=== PATIENT | female | born 1955 | race Hispanic/Latino ===

== ENCOUNTER 2022-09-30 10:08 | Emergency (ER) | payer OTHER ==
[2022-09-30 10:54] LABS: Absolute Lymphocytes (CBC) 1.8 K/uL (0.7-4.9); Hematocrit 44.4 % (36.0-45.0); Lymphocytes % 22.1 % (15.3-44.8); MCV 91.6 fL (80-100); MPV 7.1 fL (7.6-11.3); RBC Red Blood Cell Count 4.85 M/uL (3.86-4.86)
--- NOTE | 2022-09-30 10:55 | RAD REPORT ---
EXAM DESCRIPTION: CT - Head Brain Wo Cont - 09/30/2022 10:49 am CLINICAL HISTORY: Headache, new or worsening, left hand numbness and tingling COMPARISON: No comparisons TECHNIQUE: Axial 5 mm thick images of the head were obtained without IV contrast. All CT scans are performed using dose optimization technique as appropriate and may include automated exposure control or mA/KV adjustment according to patient size. FINDINGS: No intracranial hemorrhage, mass, edema or shift of mid-line structures. No acute infarcti on changes seen. No abnormal extra-axial fluid collections. Ventricles are normal. Patient has no sig nificant atrophy or chronic ischemic change identifiable. Mastoid air cells and visualized portions of the paranasal sinuses are clear. No acute bony findings. IMPRESSION: Negative non-contrast CT head examination. MRI imaging could be performed if there are continued clinical concerns for acute CVA.
[2022-09-30 11:03] LABS: Urine Blood Trace-intact (Negative); Urine Glucose Negative (Negative); Urine Protein Negative (Negative); Urine Specific Gravity 1.015 (1.005-1.030); Urine pH 5.5 (5.0-7.0)
[2022-09-30 11:07] LABS: Potassium 3.7 mmol/L (3.5-5.1); Troponin High Sensitivity 5.1 pg/mL (<58.9)
--- NOTE | 2022-09-30 11:22 | RAD REPORT ---
EXAM DESCRIPTION: RAD - Chest Single View - 09/30/2022 11:07 am CLINICAL HISTORY: CHEST PAIN COMPARISON: None TECHNIQUE: AP portable chest image was obtained 09/30/2022 11:07 am . FINDINGS: Lungs are clear. Heart and vasculature are normal. No measurable pleural effusion and no p neumothorax. No acute bony abnormality seen. No acute aortic findings suspected. IMPRESSION: No acute cardiopulmonary process.
--- NOTE | 2022-09-30 12:04 | RAD REPORT ---
EXAM DESCRIPTION: CT - Neck Angio - 09/30/2022 11:56 am CLINICAL HISTORY: Expressive aphasia TECHNIQUE: During dynamic enhancement using nonionic IV contrast, axial 2 mm thick images of the nec k were obtained. Sagittal and axial reconstruction images were generated using MIP technique and revi ewed. All CT scans are performed using dose optimization technique as appropriate and may include automated exposure control or mA/KV adjustment according to patient size. FINDINGS: Patient has an apparent right subclavian artery tracking from the aortic arch posterior t o the esophagus. The 3 primary great vessel origin show no origins stenosis. No aneurysm or vascular malformation identified. No carotid or vertebral dissection. Vertebral artery origins unremarkable as well. No stenosis, vasculitis or other significant carotid a rtery finding. No focal abnormality of either vertebral artery. Basilar artery is normal. The left ve rtebral artery is dominant as a normal anatomic variant. IMPRESSION: Negative CT angio neck examination.
--- NOTE | 2022-09-30 12:19 | RAD REPORT ---
EXAM DESCRIPTION: CT - Head angio - 09/30/2022 11:55 am CLINICAL HISTORY: Expressive aphasia TECHNIQUE: During dynamic enhancement using nonionic IV contrast, axial 1 millimeter thick images of the head were obtained. Sagittal and axial reconstruction images were generated using MIP technique and reviewed. All CT scans are performed using dose optimization technique as appropriate and may include automated exposure control or mA/KV adjustment according to patient size. COMPARISON: CT head same date FINDINGS: No aneurysm or vascular malformation identified. Major venous sinuses are patent. No stenosis, named branch occlusion, vasculitis or other significant vascular finding identifiable. IMPRESSION: Negative CT angio head examination.
--- NOTE | 2022-09-30 12:33 | RAD REPORT ---
EXAM DESCRIPTION: MRI - Brain Wo Cont - 09/30/2022 12:23 pm CLINICAL HISTORY: Expressive aphasia COMPARISON: Head angio dated 09/30/2022; Head Brain Wo Cont dated 09/30/2022 TECHNIQUE: Sagittal T1-weighted images were obtained along with axial PD, heavily T2-weighted and T2 -FLAIR images. Axial DWI and ADC mapping sequences were also obtained along with coronal heavily T2-w eighted images. FINDINGS: Diffusion imaging shows no acute infarction. No intracranial hemorrhage, mass or edema. No shift of midline structures. No significant atrophy changes are present. Scattered small T2/IR hyper intensities are seen in the cerebral white matter. This is typically chronic ischemic change. Ventric les are normal. No extra-axial fluid collections. Bernal-matter/white matter junction is preserved. Sig nal voids are seen as a normal finding in the major intracranial vessels. No globe or orbital content abnormality. No sella or supra sella abnormality. Patient has empty sella configuration with a thin rim of pituitary tissue along the floor. Mastoid air cells and paranasal sinuses are clear. IMPRESSION: No acute infarction change. No acute intracranial finding seen. Patient has mild chronic ischemic change scattered in the cerebral white matter.
--- NOTE | 2022-09-30 14:33 | EDPHYS ---
Physician Documentation [facility] Name: Patito Self Age: 67 yrs Sex: Female : 1955 Arrival Date: 09/30/2022 Time: 10:09 Bed 15 Private MD: ED Physician Sylvester Shabazz HPI: 09/30 10:29 This 67 yrs old Female presents to ER via Ambulatory with complaints of Headache, Ear ms3 Pain, Trouble Talking. 10:29 The patient complains of pain to the left frontal area. The patient describes the ms3 headache as a pressure. Onset: The symptoms/episode began/occurred 2.5 hour(s) ago. Associated signs and symptoms: Pertinent positives: Difficulty speaking at 8 am- resolved. Severity of symptoms: At its worst the pain was mild, in the emergency department the pain is unchanged. The symptoms are alleviated by nothing. the symptoms are aggravated by nothing. 10:45 67-year-old female with past medical history of hypertension, hypercholesterolemia ms3 presents for left-sided headache that she describes as pressure. Patient also notes at 8 AM she had difficulty coming up with words. Patient states that is resolved at this time. Historical: - Allergies: 10:18 Morphine; mb9 - Home Meds: 10:18 Lisinopril Oral [Active]; mb9 - PMHx: 10:18 Hypertensive disorder; Hypercholesterolemia; mb9 - Immunization history:: Adult Immunizations up to date. - Social history:: Smoking status: Patient denies any tobacco usage or history of. ROS: 10:29 Constitutional: Negative for fever, and chills. Neck: Negative for injury, pain, and ms3 swelling, Cardiovascular: Negative for chest pain, and palpitations. Respiratory: Negative for shortness of breath, cough, wheezing, and pleuritic chest pain, Abdomen/GI: Negative for abdominal pain, nausea, vomiting, diarrhea, and constipation, MS/Extremity: Negative for injury and deformity, Skin: Negative for injury, rash, and discoloration. 10:29 Neuro: Positive for headache, Difficulty speaking- resolved. 10:29 All other systems are negative. Exam: 10:35 ECG was reviewed by the Attending Physician. ms3 10:45 Constitutional: This is a well developed, well nourished patient who is awake, alert, ms3 and in no acute distress. Head/Face: Normocephalic, atraumatic. Neck: Trachea midline, no cervical lymphadenopathy. Supple, full range of motion without nuchal rigidity, or vertebral point tenderness. No Meningismus. Chest/axilla: Normal chest wall appearance and motion. Nontender with no deformity. Cardiovascular: Regular rate and rhythm with a normal S1 and S2. No gallops, murmurs, or rubs. Normal PMI, no JVD. No pulse deficits. Respiratory: Lungs have equal breath sounds bilaterally, clear to auscultation and percussion. No rales, rhonchi or wheezes noted. No increased work of breathing, no retractions or nasal flaring. Abdomen/GI: Soft, non-tender, with normal bowel sounds. No distension or tympany. No guarding or rebound. No evidence of tenderness throughout. Skin: Warm, dry with normal turgor. Normal color with no rashes, no lesions, and no evidence of cellulitis. MS/ Extremity: Pulses equal, no cyanosis. Neurovascular intact. Full, normal range of motion. 10:45 Neuro: Orientation: is normal, Mentation: is normal, Memory: is normal, Cranial nerves: CN II- XII are normal as tested, Cerebellar function: is grossly normal, normal finger to nose testing, Motor: is normal, moves all fours, Sensation: is normal, no obvious gross deficits, Gait: is steady. Vital Signs: 10:14 BP 179 / 99; Pulse 104; Temp 98.0; Pulse Ox 97% on R/A; Weight 92.08 kg; Height 5 ft. 1 mb9 in. (154.94 cm); Pain 0/10; 10:30 BP 200 / 99; Pulse 102; Resp 16; Pulse Ox 99% ; ko1 12:00 BP 175 / 96; Pulse 98; ko1 12:00 BP 180 / 92; ko1 14:34 BP 178 / 88; Pulse 95; ko1 10:14 Body Mass Index 38.36 (92.08 kg, 154.94 cm) mb9 NIH Stroke Scale Scores: 10:45 NIHSS Score: 0 ms3 MDM: 10:24 Patient medically screened. ms3 11:24 ED course: Discussed case with Dr Gonzalez. He recommends CTA head and neck, MRI brain ms3 without contrast. If negative patient can be discharged on ASA and follow up with him in clinic.. 14:35 Data reviewed: vital signs, nurses notes, lab test result(s), EKG, radiologic studies, ms3 CT scan, MRI, plain films. 14:35 Data interpreted: residential monitor: rate is 95 beats/min, rhythm is normal sinus rhythm, ms3 with no ectopy, Interpretation: normal rate, normal rhythm. Counseling: I had a detailed discussion with the patient and/or guardian regarding: the historical points, exam findings, and any diagnostic results supporting the discharge/admit diagnosis, lab results, radiology results, the need for outpatient follow up, to return to the emergency department if symptoms worsen or persist or if there are any questions or concerns that arise at home. ED course: Discussed labs and imaging with the patient. On reevaluation patient is alert and oriented x4, in no apparent distress, nontoxic, ambulatory in the emergency department, speaking full sentences, no expressive aphasia at this time. Patient follow-up with Dr. Gonzalez in 2 to 3 days. Patient understands and agrees with plan. All questions were answered. Return precautions discussed include worsening symptoms, or any other concerns.. 09/30 10:25 Order name: Basic Metabolic Panel; Complete Time: 11:12 ms3 09/30 10:25 Order name: CBC with Diff; Complete Time: 11:12 ms3 09/30 10:25 Order name: Troponin HS; Complete Time: 11:12 ms3 09/30 10:25 Order name: XRAY Chest (1 view); Complete Time: 11:47 ms3 09/30 10:28 Order name: CT Head Brain wo Cont; Complete Time: 11:12 ms3 09/30 11:03 Order name: Urine Dipstick-Ancillary; Complete Time: 11:12 EDMS 09/30 10:25 Order name: EKG; Complete Time: 10:28 ms3 09/30 10:25 Order name: Cardiac monitoring; Complete Time: 10:41 ms3 09/30 10:25 Order name: EKG - Nurse/Tech; Complete Time: 10:41 ms3 09/30 11:24 Order name: CT Head Angio; Complete Time: 13:43 ms3 09/30 11:24 Order name: CT Neck Angio; Complete Time: 13:43 ms3 09/30 11:24 Order name: MRI - Brain Wo Cont ms3 09/30 11:35 Order name: Brain Wo Cont; Complete Time: 13:43 EDMS 09/30 10:25 Order name: IV Saline Lock; Complete Time: 10:41 ms3 09/30 10:25 Order name: Labs collected and sent; Complete Time: 10:41 ms3 09/30 10:25 Order name: O2 Per Protocol; Complete Time: 10:26 ms3 09/30 10:25 Order name: O2 Sat Monitoring; Complete Time: 10:27 ms3 EC:35 Rate is 102 beats/min. Rhythm is regular. Left axis deviation noted. AK interval is ms3 normal. QRS interval is normal. QT interval is normal. Clinical impression: NSR w/ Non-specific ST/T Changes. Interpreted by me. Reviewed by me. Administered Medications: No medications were administered Disposition Summary: 09/30/22 14:33 Discharge Ordered Location: Home ms3 Condition: Stable ms3 Diagnosis - Expressive language disorder ms3 - Essential (primary) hypertension ms3 - Hematuria, unspecified ms3 Followup: ms3 - With: Carlos Gonzalez MD - When: 2 - 3 days - Reason: Recheck today's complaints Discharge Instructions: - Discharge Summary Sheet ms3 - Hematuria, Adult ms3 - Hypertension, Adult ms3 Forms: - Medication Reconciliation Form ms3 - Thank You Letter ms3 - Antibiotic Education ms3 - Prescription Opioid Use ms3 Prescriptions: - aspirin 81 mg Oral capsule - take 1 capsule by ORAL route once daily; 30 capsule; Refills: 0, Product ms3 Selection Permitted NIH Stroke Scale - NIH Stroke Score Date: 09/30/2022 Time: 10:45 Total Score = 0 1a. Level of Consciousness (LOC) - 0(Alert) 1b. Level of Consciousness (LOC) (Month \T\ Age) - 0(Both) 1c. LOC Commands (Open \T\ Closes Eyes/Hydraulic Operator) - 0(Both) 2. Best Gaze (Lateral Gaze Paresis) - 0(Normal) 3. Visual Field Loss - 0(No visual loss) 4. Facial Palsy - 0(Normal) 5a. Left Arm: Motor (10-second hold) - 0(No drift) 5b. Right Arm: Motor (10-second hold) - 0(No drift) 6a. Left Leg: Motor (5-second hold - always test supine) - 0(No drift) 6b. Right Leg: Motor (5-second hold - always test supine) - 0(No drift) 7. Limb Ataxia (finger/nose \T\ heel/oden - test with eyes open) - 0(Absent) 8. Sensory Loss (pinprick arms/legs/face) - 0(Normal) 9. Best Language: Aphasia (description/naming/reading) - 0(No aphasia) 10. Dysarthria (speech clarity - read or repeat words) - 0(Normal) 11. Extinction and Inattention (visual/tactile/auditory/spatial/personal) - 0(No abnormality) Initials: ms3 Signatures: Dispatcher [employer] EDMS Sylvester Shabazz, DO ms3 Kathy Deutsch, RN RN mb9
--- NOTE | 2022-09-30 14:33 | ER ---
Nurse's Notes [facility] Name: Patito Self Age: 67 yrs Sex: Female : 1955 Arrival Date: 09/30/2022 Time: 10:09 Bed 15 Private MD: Diagnosis: Expressive language disorder;Essential (primary) hypertension;Hematuria, unspecified Presentation: 09/30 10:14 Chief complaint: Patient states: "I began having difficulty speaking around 0800 and mb9 began having pressure on my left side of head. My left fingertips began to have numbness and tingling". Coronavirus screen: Client denies travel out of the [place] in the last 14 days. Ebola Screen: No symptoms or risks identified at this time. Initial Sepsis Screen: Does the patient meet any 2 criteria? No. Patient's initial sepsis screen is negative. Does the patient have a suspected source of infection? No. Patient's initial sepsis screen is negative. Risk Assessment: Do you want to hurt yourself or someone else? Patient reports no desire to harm self or others. 10:14 Method Of Arrival: Ambulatory mb9 10:14 Acuity: MARCIANO 2 mb9 14:55 Onset of symptoms was September 30, 2022. ko1 Triage Assessment: 10:17 General: Appears in no apparent distress. Behavior is calm, cooperative, appropriate mb9 for age. Pain: Complains of pain in face Pain currently is 0 out of 10 on a pain scale. Pain began suddenly. 10:20 EENT: No deficits noted. Neuro: Level of Consciousness is awake, alert, obeys commands, mb9 Oriented to person, place, time, situation, Appropriate for age Director Of Resource Development are equal bilaterally Moves all extremities. Gait is steady, Speech is normal, Facial symmetry appears normal, Pupils are PERRLA, Intact Reports headache. Neuro:. Cardiovascular: Rhythm is regular. Respiratory: Airway is patent. Respiratory: GI: Abdomen is round. : No signs and/or symptoms were reported regarding the genitourinary system. Derm: Skin is pink, warm \\T\\ dry. Musculoskeletal: Range of motion:. 14:55 Pain: Also complains of no other associated symptoms. ko1 14:55 Headache History: The patient has had previous headaches and this one is more severe ko1 than previous episodes. Historical: - Allergies: 10:18 Morphine; mb9 - Home Meds: 10:18 Lisinopril Oral [Active]; mb9 - PMHx: 10:18 Hypertensive disorder; Hypercholesterolemia; mb9 - Immunization history:: Adult Immunizations up to date. - Social history:: Smoking status: Patient denies any tobacco usage or history of. Screenin:30 Abuse screen: Denies threats or abuse. Denies injuries from another. Nutritional ko1 screening: No deficits noted. Tuberculosis screening: No symptoms or risk factors identified. Fall Risk None identified. Assessment: 10:30 General: Appears in no apparent distress. comfortable, Behavior is calm, cooperative, ko1 appropriate for age. Pain: Denies pain. Neuro: No deficits noted. Cardiovascular: No deficits noted. Respiratory: No deficits noted. GI: No deficits noted. : No deficits noted. EENT: Reports pain in left frontal area and face. Derm: No deficits noted. Musculoskeletal: No deficits noted. Vital Signs: 10:14 BP 179 / 99; Pulse 104; Temp 98.0; Pulse Ox 97% on R/A; Weight 92.08 kg; Height 5 ft. 1 mb9 in. (154.94 cm); Pain 0/10; 10:30 BP 200 / 99; Pulse 102; Resp 16; Pulse Ox 99% ; ko1 12:00 BP 175 / 96; Pulse 98; ko1 12:00 BP 180 / 92; ko1 14:34 BP 178 / 88; Pulse 95; ko1 10:14 Body Mass Index 38.36 (92.08 kg, 154.94 cm) mb9 Vitals: 10:30 Cardiac Rhythm Assessment Regular Sinus tach. ko1 NIH Stroke Scale Scores: 10:45 NIHSS Score: 0 ms3 ED Course: 10:09 Patient arrived in ED. as 10:16 Sylvester Shabazz DO is Attending Physician. ms3 10:16 Triage completed. mb9 10:17 Arm band placed on. mb9 10:24 Kenzie Mendez, DANIEL is Primary Nurse. ko1 10:30 Patient has correct armband on for positive identification. Allergy band placed. Placed ko1 in gown. Bed in low position. Call light in reach. Side rails up X 1. Client placed on continuous cardiac and pulse oximetry monitoring. NIBP monitoring applied. traffic monitor specialist on. 10:30 Inserted saline lock: 20 gauge in right antecubital area, using aseptic technique. ko1 Blood collected. 10:41 Basic Metabolic Panel Sent. ko1 10:41 CBC with Diff Sent. ko1 10:41 Troponin HS Sent. ko1 10:49 CT Head Brain wo Cont In Process Unspecified. EDMS 11:09 XRAY Chest (1 view) In Process Unspecified. EDMS 11:57 CT Head Angio In Process Unspecified. EDMS 11:57 CT Neck Angio In Process Unspecified. EDMS 12:05 Brain Wo Cont In Process Unspecified. EDMS 14:32 Carlos Gonzalez MD is Referral Physician. ms3 14:34 No provider procedures requiring assistance completed. IV discontinued, intact, ko1 bleeding controlled, No redness/swelling at site. Pressure dressing applied. Administered Medications: No medications were administered Medication: 14:34 VIS not applicable for this client. ko1 Outcome: 14:33 Discharge ordered by . ms3 14:34 Discharged to home ambulatory, with family. ko1 14:34 Condition: good 14:34 Discharge instructions given to patient, family, Instructed on discharge instructions, follow up and referral plans. medication usage, Demonstrated understanding of instructions, follow-up care, medications, Prescriptions given X 1. 14:56 Patient left the ED. ko1 NIH Stroke Scale - NIH Stroke Score Date: 09/30/2022 Time: 10:45 Total Score = 0 1a. Level of Consciousness (LOC) - 0(Alert) 1b. Level of Consciousness (LOC) (Month \\T\\ Age) - 0(Both) 1c. LOC Commands (Open \\T\\ Closes Eyes/Grinder Machine Setter) - 0(Both) 2. Best Gaze (Lateral Gaze Paresis) - 0(Normal) 3. Visual Field Loss - 0(No visual loss) 4. Facial Palsy - 0(Normal) 5a. Left Arm: Motor (10-second hold) - 0(No drift) 5b. Right Arm: Motor (10-second hold) - 0(No drift) 6a. Left Leg: Motor (5-second hold - always test supine) - 0(No drift) 6b. Right Leg: Motor (5-second hold - always test supine) - 0(No drift) 7. Limb Ataxia (finger/nose \\T\\ heel/oden - test with eyes open) - 0(Absent) 8. Sensory Loss (pinprick arms/legs/face) - 0(Normal) 9. Best Language: Aphasia (description/naming/reading) - 0(No aphasia) 10. Dysarthria (speech clarity - read or repeat words) - 0(Normal) 11. Extinction and Inattention (visual/tactile/auditory/spatial/personal) - 0(No abnormality) Initials: ms3 Signatures: Dispatcher [employer] EDMireya Luque Marcus, DO DO ms3 Kenzie Mendez RN RN ko1 Kathy Deutsch RN RN mb9 Corrections: (The following items were deleted from the chart) 10:21 10:17 Pain: Complains of pain in face mb9 mb9 10/01 09:27 11 10:14 Acuity: MARCIANO 3 9 mb9
[2022-09-30 15:00] VITALS: TEMP 98
[2022-09-30 15:01] VITALS: O2SAT 99
[2022-09-30 15:04] VITALS: BP 178/88
--- NOTE | 2022-10-02 06:02 | EKG ---
Test Date: 2022-09-30 Test Time: 10:35:00 Folder Seamer Automatic: Luly Elliott MEASUREMENT RESULTS: Intervals: Rate: 102 OK: 162 QRSD: 82 QT: 336 QTc: 437 [place]: P: 51 OK: 162 QRS: -5 T: 31 INTERPRETIVE STATEMENTS: Sinus tachycardia Minimal voltage criteria for LVH, may be normal variant Borderline ECG No previous ECG available for comparison Electronically Signed On 10-02-22 06:00:05 CDT by Brian Li
== END 2022-09-30 14:56 | disposition home or self-care (01) ==
LOC: ER 10:08
DX: F80.1 Expressive language disorder (principal); I10 Essential (primary) hypertension; R31.9 Hematuria, unspecified; R51.9 Headache, unspecified; Z88.5 Allergy status to narcotic agent
CPT/HCPCS: 93005; 85025; 80048; 36415; 81003; 84484; 70450; 70496; 70498; 71045; 70551; 99284; Q9967

== ENCOUNTER 2022-10-08 22:18 | Emergency (ER) | payer OTHER ==
--- OUTSIDE RECORDS SUMMARY | 2022-10-08 22:22 | XMS REPORT | Continuity of Care Document ---
:1955 Author Organization [facility] t Address [address] [place] [address] Care Team Providers Name Role Phone Kayleigh Phipps Attending Clinician Unavailable Kayleigh Phipps Admitting Clinician Unavailable Payers Payer Name Policy Type Policy Number Effective Date Expiration Date S ource Problems This patient has no known problems. Allergies, Adverse Reactions, Alerts Allergy Allergy Status Severity Reaction(s) Onset Inactive Treating Comm ents Source Name Type Date Date Clinician morphine DA Active U UNKNOWN 2021-11 [facility] 11-30 [place] 00:00: d 00 [facility] No Known DA Active U [facility] All[facility]ie 7-10 [place] [facility] 00:00: d 00 [facility] No Known DA Active U 2016- [facility] Allergie 7-10 [facility] Medications This patient has no known medications. Procedures Procedure Date / Time Performed Performing Clinician Melissa vargas [id number] 2022-10-01 00:00:00 BOBBY.01 [facility] [id number] 2022-10-01 00:00:00 BOBBY.01 [facility] Encounters Start End Encounter Admission Attending Care Care Encounter Source Date/Time Date/Time Type Type Clinicians Facility Department ID 2022-10-01 2022-10-02 Inpatient EM Desire, [facility] INTE.02 [id number] [facility] 15:56:00 13:14:00 Musaddiq 54 Miladis an [facility] Results Test Description Test Time Test Comments Results Result Comments Source HGBA1C 2022-10-02 05:19:00 Test Item Value Reference Range Interpretation Comme nts GLYCOSYLATED HEMOGLOBIN (HA1C) (test code = GLYHGB) 5.5 % A1C 0. 0-5.7 N ESTIMATED AVERAGE GLUCOSE (test code = EAG) 111 MG/DLest LIPID PROFILE (CORONARY RISK)2022-10-02 05:01:00 Test Item Value Reference Range Interpretation Comments TRIGLYCERIDES (test 126 MG/DL 0-150 N code = TRIG) CHOLESTEROL (test 221 MG/DL 133-200 H code = CHOL) CHOLESTEROL/HDL 4.25 RATIO See_Comment RISK ASSOCIA EFRAÍN WITH RATIO (test code = CHOL/HDL RATIOS: RISK CHOLHDL) MALE FEMALE1/2 AVERAGE 3.43 3.27AVERAG E 4.97 4.442X AVERAGE 9.55 7.053X AVERAGE 23.39 11.04 NOTE THAT THE REFERENCE VALUE IS RELATED TO RISK LEVELS ASRECOMMENDED B Y THE [facility]ATIONAL [facility], LUNG, [facility]OD [facility] . [Automated mess age] The system which Scribe Software nerated this result tra nsmitted reference range : 0-. The reference range was not used to interpr et this result as normal/abnormal . HDL CHOLESTEROL 52 MG/DL 40-59 N (test code = HDL) NON-HDL CHOLESTEROL 169 mg/dL <130 H (test code = NHDL) LIPOPROTEIN LDL 147 MG/DL 0-129 H <100 OPTIMAL 100 - 129 (test code = LDL) NEAR OPTIM AL/ABOVE [id number] - 15 9 [id number] - 189 HIGH>OR= 190 VE RY HIGHNOTE THAT G UIDELINES ARE PROVIDED BY NATIONAL CHOLESTEROLEDUC ATION PROGRAM ADULT T REATMENT PANEL III LDL/HDL (test code 2.82 Ratio See_Comment N [Automat ed message] The = LDL/HDL) system which [employer] nerated this result tra nsmitted reference range : 1.48-3.22 Avg. The reference range was not used to interpr et this result as normal/abnormal . Comment: FASTING IN AMCSF CELL [id number] 18:18:00 Test Item Value Reference Range Interpretation Comments CSF COLOR (test code = COLORLESS DESCRIP. COLORLESS COLCSF) CSF APPEARANCE (test code CLEAR DESCRIP. CLEAR = APPCSF) CSF TUBE # (test code = #3 Tube# Tube Used TUBECSF) CSF WBC (test code = 2 #/mm3 0-5 N WBCCSF) CSF RBC (test code = 1000 #/mm3 0-0 H RBCCSF) CSF [id number] 18:18:00 Test Item Value Reference Range Interpretation Comments CSF GLUCOSE (test code = GLUCSF) 69 MG/DL 40-75 N CSF TOTAL [id number] 18:18:00 Test Item Value Reference Range Interpretation Comments CSF TOTAL PROTEIN (test code = 35.4 MG/DL 15.0-45.0 N PROTCSF) - XR LUMBAR [id number] 16:49:00 [facility] : 1955 Sex: F Name: RADHA LONDONO [facility] : 1955 Age/S: 67 / F [address] [facility] [place] Unit #: [id number] Loc: [place] [address] Phys: Sue Wills Acct: [id number] Dis Date: Status: ADM IN PHONE #: [phone] Exam Date: 10/01/2022 1630 FAX #: Reason: EVAL FOR IIH EXAMS: CPT: [id number] XR LUMBAR [id number] Fluoro Time: DAP (Gy m2): Air Kerma (mGy): Location Code: S17 REASON FOR EXAM: EVAL FOR IIH COMPARISON: None. FINDINGS: After explaining risks and benefits of the procedure, (including, but not limited to, bleeding, infection and headache), the patient was placed prone on the examination table and the skin over the lumbar spine was cleaned and prepped in sterile fashion. An appropriate area was marked at the L2-3 space using fluoroscopy. 1% lidocaine was used to obtain anesthesia. Following this a 22 gauge spinal needle was inserted into the lumbar thecal sac with return of clear cerebrospinal fluid. Approximately 12 cc of clear CSF was obtained, and sent to lab for further analysis. Following this the needle was removed. The patient appeared to tolerate the procedure well without immediate complication. The opening and closing pressures were measured with the patient in prone position. The opening pressure was 6 cm water and closing pressure was less than 5 cm of water. 58 seconds of fluoroscopy time was used to complete the procedure. Total images: 1 IMPRESSION: 1. Technically successful fluoroscopically guided lumbar puncture. No immediate complications. 2. Opening pressure was 6. Closing pressure was less than 5. at 8978 Reported and signed by: Patricio Taylor M.D. CC: Sue SERRA; Kayleigh Phipps MD PAGE 1 Signed Report Name: RADHA LONDONO [facility] : 1955 Age/S: 67 / F [address] [address] Unit #: [id number] Loc: [place] [address] Phys: Sue Wills Acct: [id number] Dis Date: Status: ADM IN PHONE #: [phone] Exam Date: 10/01/2022 1630 FAX #: Reason: EVAL FOR IIH EXAMS: CPT: [id number] XR LUMBAR [id number] Fluoro Time: DAP (Gy m2): Air Kerma (mGy): (Continued) Technologist: Angel Patel, RT(R)Trnscb Date/Time: 10/01/2022 (134) [email or web address] Orig Print D/T: S: 10/01/2022 (9231) PAGE 2 Signed Report- MRI BRAIN W/O [id number] 08:39:00 [facility] : 1955 Sex: F FAX:Viktoria GordonJoce westfall [facility] [phone] Camps: PM St: ADM FAX: Kayleigh Phipps MD [phone] Name: RDAHA LONDONO [facility] : 1955 Age/S: 67/F [address] Unit #: [id number] Loc: [place] [address] Phys: Damir MorrisseyBello [facility] Acct: [id number] Dis Date: Status: ADM IN PHONE #: [phone] Exam D ate: 10/01/2022 0800 FAX #: Reason: CVA, expressive aphasia EXAMS: CPT: [id number] MRI BRAIN W/O CONTRAST 74297 Location: B2 EXAM: MRI brain without contrast DATE:10/01/2022 1:58 AM INDICATION:CVA, expressive aphasia COMPARISON: CT head 09/30/2022 TECHNIQUE: Multiplanar multisequence images of the brainwere obtained without contrast material administration. DISCUSSION: Few foci of restricted diffusionare present in the left periatrial white matter. Volume loss. Hyperintense T2 lesions in the supratentorial white matter consistent with small vessel disease. Remote infarct in the right basal ganglia.No acute intracranial hemorrhage, hydrocephalus or midline shift. No brain herniation. 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 There is a 1.6 x 2.3 cm arachnoid cyst in the medial aspect of the middle cranial fossa . 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 More posteriorly there is a small cephalocele (image 12 series 8). There are small cephaloceles at the level of the left tegmen mastoideum and tympani (image 15 series 8). There is remodeling of the sella turcica, with a partial empty sella appearance. Trace mucosal thickening within the left maxillary sinus. PAGE 1 Signed Report (CONTINUED) FAX: Gabrielle Cary HOME INSPECTOR [phone] Camps: PM St: ADM FAX: Kayleigh Phipps MD [phone] Name: RADHA LONDONO [facility] : 1955 Age/S: 67/F [address] [facility] Unit #: [id number] Loc: [place] [address] Phys: Gabrielle Morrissey APRNNPAcct: [id number] Dis Date: Status: ADM IN PHONE #: [phone] Exam Date: 10/01/2022 0800 FAX #: Reason: CVA, expressive aphasia EXAMS: CPT: [id number] MRI BRAIN W/O CONTRAST 42953 (Continued) Major intracranial flow voids are well maintained. Opacification of some left mastoid air cells. IMPRESSION: Few foci of restricted diffusion in the left periatrial white matter secondary to acute ischemia. Volume loss and small vessel disease. Bilateral petrous apex cephaloceles. 16 x 23 mm left middle cranial fossa arachnoid cyst. 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 Partial empty sella. The constellation of findings are suspicious for idiopathic intracranial hypertension. at 0839 Reported and signed by: Malu Huang M.D. CC: Gabrielle Morrissey; Kayleigh Phipps MD Technologist: Stevan Park, RT(R)(CT)(MR) Tr anscribed Date/Time/By: 10/01/2022 (0839) :Jimmy Orig Print D/T: S: 10/01/2022 (0842) PAGE 2 Signed ReportGLUCOSE BEDSIDE [id number] 05:25:00 Test Item Value Reference Range Interpretation Comments GLUCOSE BEDSIDE TESTING (test code 128 mg/dL 70-110 H = GLUBED) UA RFLX MICR CULT IF [id number] 00:44:00 Test Item Value Reference Range Interpretation Comments UA COLOR (test code = YELLOW discript YEL/STRAW COLU) UA APPEARANCE (test code CLEAR discript CLEAR = APPU) UA GLUCOSE DIPSTICK (test NEGATIVE mg/dL NEG code = DGLUU) UA BILIRUBIN DIPSTICK NEGATIVE mg/dL NEG (test code = BILU) UA KETONE DIPSTICK (test NEGATIVE mg/dL NEG code = KETU) UA SPECIFIC GRAVITY (test 1.015 SG 1.005-1.030 code = SGU) UA BLOOD DIPSTICK (test 1+ mg/DL NEG A code = WINTER) UA PH DIPSTICK (test code 6.0 pH UNITS 5.0-7.0 = BAO) UA PROTEIN DIPSTICK (test NEGATIVE mg/dL NEG code = PROU) UA UROBILINIOGEN DIPSTICK 0.2 mg/dL <2.0 (test code = URO) UA NITRITE DIPSTICK (test NEGATIVE SCREEN NEG code = TAYO) UA LEUKOCYTE ESTERASE NEGATIVE Leuk/mcL NEGATIVE DIPSTICK (test code = LEUU) UA CULTURE NEEDED? (test NO, WBC<10 Criteria Culture CHK code = UACULT) UA RBC (test code = RBCU) 0-1 #RBC/HPF 0-3 Indication for culture: RiskForSepsis-no oth srcCOVID 19 Asymptomatic IH AG 2022-10-01 00:14:00 Test Item Value Reference Range Interpretation Comments COVID 19 Asymptomatic NEGATIVE Negative Per ma nufacturer, IH AG (test code = negative results should COVNONPUIAG) be treated aspresumptive a nd, if inconsistent wi th clinical signs andsymptoms or necessary for p atient management, kina uld betested with a n alternative mol ecular assay. Negative resultsdo not p reclude SARS-CoV-2 infe ction and should not be usedas the sole basis for patient man agement decisions. Nega tive results should be considered in t he context of apat ient's recent exposure s, history, presen ce of clinicalsigns a nd symptoms consis tent with COVID-19. PROTHROMBIN [id number] 23:22:00 Test Item Value Reference Range Interpretation Comments PT PATIENT (test 10.8 SECONDS 9.3-12.9 N code = PTP) INTERNATIONAL NORMAL 0.95 INR Unit 0.8-1.2 N TARG ET INR BY RATIO (test code = INDICATIO N Indication INR) INR1. Prophylax is of venous thrombos is 2.0 - 3.0 (orthoped ic surgery), Proph ylaxis of venous throm bosis (other than hig h-risk surgery), Treat ment of Deep Vein Thrombosis/Pulm onary Embolism, Preve ntion of systemic emb olism - Tissue heart va lves, Acute Myocardia l Infarction (to prevent systemic embol ism), Valvular heart disease, Acute Myocardial Infa rction (to prevent sys temic embolism), Valv ular heart disease, Atrial Fibrillation, Bileaflet mecha nical valve in aortic position.2. Mec hanical prosthetic valv es (high risk), 2. 5 - 3.5 Presence of Lup us Anticoagulant o r Antiphospholipi d Antibodies, Pre vention of systemic emb olism - Acute Myocardia l Infarction (to prevent recurrent infar ct). THROMBOPLASTIN TIME [id number] 23:22:00 Test Item Value Reference Range Interpretation Comments THROMBOPLASTIN TIME PARTIAL 38.5 SECONDS 26-35 H (test code = PTT) GLUCOSE BEDSIDE [id number] 23:13:00 Test Item Value Reference Range Interpretation Comments GLUCOSE BEDSIDE TESTING (test code 128 mg/dL 70-110 H = GLUBED) BASIC METABOLIC [id number] 23:08:00 Test Item Value Reference Range Interpretation Comments SODIUM (test code = NA) 140 mmol/L 134-147 N POTASSIUM (test code = 3.7 mmol/L 3.4-5.0 N K) CHLORIDE (test code = 107 mmol/L 100-108 N CL) CARBON DIOXIDE (test 26 mmol/L 21-32 N code = CO2) ANION GAP (test code = 7.0 GAP calc 4.0-15.0 N GAP) GLUCOSE (test code = 119 MG/DL 70-110 H GLU) BLOOD UREA NITROGEN 19 MG/DL 7-18 H (test code = BUN) GLOMERULAR FILTRATION >=60 max estimate >60 RATE (test code = GFR) estGFR CREATININE (test code = 0.7 MG/DL 0.6-1.0 N CREAT) CALCIUM (test code = CA) 10.0 MG/DL 8.5-10.1 N Completed by Nursing: NOTROP-I HIGH [id number] 23:08:00 Test Item Value Reference Range Interpretation Comments TROP-I HIGH 3.8 ng/L 0-34 N CAUTION: Units of the SENSITIVITY (test current te st methodology code = TROPIHS) (ng/L) diffe rfrom the prior test meth odology (ng/mL) by a fa ctor of 1000. 99t h Percentile Uppe r Reference Limit (URL):Fem ales: 34 ng/LMales: 54 n g/L In order to distin guish acute elevations of h igh sensitivitytrop onin from other clinical conditions, the FourthUnive rsal Definition of M yocardial Infarction stressesclinica l assessment and the demonstration o f a rise and/orfall in s erial troponin result s above the URL. Results fr om different metho dologies should not be c omparedto one another as quantitative re sults and URLs may varyby method. Completed by Nursing: NO- CT ANGIO [id number] 23:01:00 [facility] : 1955 Sex: F Name: RADHA LONDONO [facility] : 1955 Age/S: 67 / F [address] [address] [place] Unit #: [id number] Loc: [place] [address] Phys: Jaquan Dsouza MD Acct: [id number] Dis Date: Status: PRE ER PHONE #: [phone] Exam Date: 09/30/2022 2245 FAX #: Reason: aphasia EXAMS: CPT: [id number] CT ANGIO NECK 70 498 Exam: - CT ANGIO HEAD, - CT ANGIO NECK Location: H24 HISTORY: aphasia, right ear pain and confusion COMPARISON: Correlation with noncontrast CT of the head from 09/30/2022 at 2231 TECHNIQUE: Axial images of the neck and head were obtained after administration of Isovue-370 intravenous contrast. Images were reformatted to create coronal and sagittal maximum intensity projections. One or more of thefollowing dose reduction techniques were used: Automated exposure control, adjustment of the mA and/or kV according to patient size, and/or utilization of iterative reconstruction technique. GFR: , Creatinine: mg/dL DLP: mGy-cm. FINDINGS: CTA Neck Aorta and great vessel origins: No significant plaque at the aortic arch. 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 No stenosis of the origins of the internal carotid arteries or left subclavian artery. Carotid arteries: Common carotid arteries are normal in caliber. Carotid bifurcations are patent without stenosis. Origins of the internal carotid arteries are within normal limits. Extra cranial course of the internal carotid arteries are otherwise unremarkable. Origins of the external carotid arteries are patent and within normal limits.Vertebral arteries: The vertebral arteries arise from the bilateral subclavian arteries. There is nostenosis, occlusion or dissection. The degree of stenosis is based on end vessel luminal diameter per NASCET criteria. Neck: Fascial planes: No abnormalities are noted. Lymph nodes: There is no cervical adenopathy. PAGE 1 Signed Report (CONTINUED) Name: RADHA [facility]ONDONO [facility] [place] : 1955 Age/S: 67 / F [address] [address] [place] Unit #: [id number] Loc: [place] [address] Phys: Jaquan Dsouza MD Acct: [id number] Dis Date: Status: PRE ER PHONE #: [phone] Exam Date: 09/30/20222244 FAX #: Reason: aphasia EXAMS: CPT: [id number] CT ANGIO NECK [address]270 (Continued) Bones: Spondylosis is noted in the mid cervical spine. No discrete osteolytic or osteosclerotic lesions are seen. Thorax: No significant abnormality. FINDINGS: CTA Head Internal carotid arteries: Patent. No significant abnormality. Middle cerebral arteries (M1 and M2 segments): Patent. No significant abnormality. Anterior cerebral arteries (A1 and A2 segments): Patent. No significant abnormality. Anterior communicating artery: Patent.No significant abnormality. Vertebral arteries (V4 segments): Patent. No significant abnormality. Basilar artery and branches: Patent. No significant abnormality. Posterior inferior, anterior inferior and superior cerebellar artery origins are patent. Posterior cerebral artery (P1 and P2 segments): Pa tent. No significant abnormality. Posterior communicating arteries: Not visualized Distal cerebral arteries: No stenosis, occlusion, aneurysmal dilatation or vascular malformation. Slight irregularity of distal cerebral arteries may indicate underlying vasculopathy. Dural venous sinuses: No visualizedfilling defects. Head with contrast: There is no acute intracranial hemorrhage, mass, mass effect, midline shift or extra-axial fluid collection. No abnormal parenchymal or leptomeningeal enhancement is present. The flores-white differentiation is maintained without evidence for acute major vessel infarct. PAGE 2 Signed Report (CONTINUED) Name: RADHA LONDONO [facility] [place] : 1955 Age/S: 67 / F [address] [address] [place] Unit #: [id number] Loc: [place] [address] Phys: Jaquan Dsouza MD Acct: [id number] Dis Date: Status: PRE ER PHONE #: [phone] Exam Date: 09/30/20222244 FAX #: Reason: aphasia EXAMS: CPT: [id number] CT ANGIO NECK [address] (Continued) Paranasal sinuses, mastoid air cells and intraorbital contents are within normal limits. Bones of the calvaria and skull base are intact. IMPRESSION: 1. No intracranial large vessel occlusion. No significant stenosis. No aneurysmal dilatation or vascular malformation. 2. Slight are aerated distal cerebral arteries may indicate underlying vasculop athy. 3. No stenosis, occlusion or dissection of the common or internal carotid arteries or vertebral arteries. at 2301 Reported and signed by: Brock Carrillo M.D. CC: Technologist:RT Zoya(R) CTDI: DLP: Trnscb Date/Time: 09/30/2022 (230) [email or web address] Orig Print D/T: S: 09/30/2022 (2304) PAGE 3 Signed Report- CT ANGIO [id number] 23:01:00 [facility] : 1955 Sex: F Name: RADHA LONDONO [facility] : 1955 Age/S: 67 / F [address] [address] [place] Unit #: [id number] Loc: [place] [address] Phys: Jaquan Dsouza MD Acct: [id number] Dis Date: Status: PRE ER PHONE #: [phone] Exam Date: 09/30/20222244 FAX #: Reason: aphasia EXAMS: CPT: [id number] CT ANGIO HEAD 70 496 Exam: - CT ANGIO HEAD, - CT ANGIO NECK Location: H24 HISTORY: aphasia, right ear pain and confusion COMPARISON: Correlation with noncontrast CT of the head from 09/30/2022 at 2231 TECHNIQUE: Axial images of the neck and head were obtained after administration of Isovue-370 intravenous contrast. Images were reformatted to create coronal and sagittal maximum intensity projections. One or more of thefollowing dose reduction techniques were used: Automated exposure control, adjustment of the mA and/or kV according to patient size, and/or utilization of iterative reconstruction technique. GFR: , Creatinine: mg/dL DLP: mGy-cm. FINDINGS: CTA Neck Aorta and great vessel origins: No significant plaqueat the aortic arch. 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 No stenosis of the origins of the internal carotid arteries or left subclavian artery. Carotid arteries: Common carotid arteries are normal in caliber. Carotid bifurcations are patent without stenosis. Origins of the internalcarotid arteries are within normal limits. Extra cranial course of the internal carotid arteries areotherwise unremarkable. Origins of the external carotid arteries are patent and within normal limits. Vertebral arteries: The vertebral arteries arise from the bilateral subclavian arteries. There is no stenosis, occlusion or dissection. The degree of stenosis is based on end vessel luminal diameter per NASCET criteria. Neck: Fascial planes: No abnormalities are noted. Lymph nodes: There is no cervical adenopathy. PAGE 1 Signed Report (CONTINUED) Name: RADHA LONDONO [facility] : 1955 Age/S: 67 / F [address] [address] Unit #: [id number] Loc: [place] [address] Phys: Jaquan Dsouza MD Acct: [id number] Dis Date: Status: PRE ER PHONE #: [phone] Exam Date: 09/30/20225 FAX #: Reason: aphasia EXAMS: CPT: [id number] CT ANGIO HEAD [address] (Continued) Bones: Spondylosis is noted in themid cervical spine. No discrete osteolytic or osteosclerotic lesions are seen. Thorax: No significant abnormality. FINDINGS: CTA Head Internal carotid arteries: Patent. No significant abnormality. Middle cerebral arteries (M1 and M2 segments): Patent. No significant abnormality. Anterior cerebral arteries (A1 and A2 segments): Patent. No significant abnormality. Anterior communicating artery: Patent.No significant abnormality. Vertebral arteries (V4 segments): Patent. No significant abnormality. Basilar artery and branches: Patent. No significant abnormality. Posterior inferior, anterior inferior and superior cerebellar artery origins are patent. Posterior cerebral artery (P1 and P2 segments): Patent. No significant abnormality. Posterior communicating arteries: Not visualized Distal cerebral arteries: No stenosis, occlusion, aneurysmal dilatation or vascular malformation. Slight irregularity of distal cerebral arteries may indicate underlying vasculopathy. Dural venous sinuses: No visualizedfilling defects. Head with contrast: There is no acute intracranial hemorrhage, mass, mass effect, midline shift or extra-axial fluid collection. No abnormal parenchymal or leptomeningeal enhancement is present. The flores-white differentiation is maintained without evidence for acute major vessel infarct. PAGE 2 Signed Report (CONTINUED) Name: RADHA LONDONO [facility] : 1955 Age/S: 67 / F [address] [address] Unit #: [id number] Loc: [place] [address] Phys: Jaquan Dsouza MD Acct: [id number] Dis Date: Status: PRE ER PHONE #: [phone] Exam Date: 09/30/2022 224 FAX #: Reason: aphasia EXAMS: CPT: [id number] CT ANGIO HEAD [address]676 (Continued) Paranasal sinuses, mastoid air cells and intraorbital contents are within normal limits. Bones of the calvaria and skull base are intact. IMPRESSION: 1. No intracranial large vessel occlusion. No significant stenosis. No aneurysmal dilatation or vascular malformation. 2. Slight are aerated distal cerebral arteries may indicate underlying vascul opathy. 3. No stenosis, occlusion or dissection of the common or internal carotid arteries or vertebral arteries. at 2301 Reported and signedby: Brock Carrillo M.D. CC: Technologist:Angel Patel, RT(R) CTDI: DLP: Trnscb Date/Time: 09/30/2022 (2301) [email or web address] Orig Print D/T: S: 09/30/2022 (8949) PAGE 3 Signed ReportWH[facility] W/AUTO [id number] 22:56:00 Test Item Value Reference Range Interpretation Comments WHITE BLOOD CELL (test code = 10.4 K/mm3 3.5-11.0 N WBC) RED BLOOD CELL (test code = 4.91 M/mm3 4.70-6.10 N RBC) HEMOGLOBIN (test code = HGB) 15.2 G/DL 10.4-14.9 H HEMATOCRIT (test code = HCT) 44.2 % 31.5-44.1 H MEAN CELL VOLUME (test code = 90.0 Fl 84.5-98.6 N MCV) MEAN CELL HGB (test code = MCH) 31.0 pg 27.0-34.2 N MEAN CELL HGB CONCETRATION 34.4 G/DL 31.5-34.0 H (test code = MCHC) RED CELL DISTRIBUTION WIDTH 12.6 SD 11.5-14.5 N (test code = RDW) PLATELET COUNT (test code = 315 K/mm3 150-450 N PLT) MEAN PLATELET VOLUME (test code 8.90 fL 7.0-10.5 N = MPV) NEUTROPHIL % (test code = NT%) 61.2 % 40-76 N IMMATURE GRANULOCYTE % (test 0.3 % 0.0-5.0 N code = IG%) LYMPHOCYTE % (test code = LY%) 26.4 % 20.5-51.1 N MONOCYTE % (test code = MO%) 9.8 % 1.7-9.3 H EOSINOPHIL % (test code = EO%) 1.4 % 0.0-6.0 N BASOPHIL % (test code = BA%) 0.9 % 0.0-2.0 N NUCLEATED RBC % (test code = 0.0 /100WBC% 0.0-1.0 N NRBC%) NEUTROPHIL # (test code = NT#) 6.3 K/mm3 1.8-7.6 N IMMATURE GRANULOCYTE # (test 0.03 x10 3/uL 0.00-0.03 N code = IG#) LYMPHOCYTE # (test code = LY#) 2.7 K/mm3 0.6-3.2 N MONOCYTE # (test code = MO#) 1.0 K/mm3 0.3-1.1 N EOSINOPHIL # (test code = EO#) 0.2 K/mm3 0.0-0.4 N BASOPHIL # (test code = BA#) 0.1 K/mm3 0.0-0.1 N NUCLEATED RBC # (test code = 0.0 K/mm3 0.0-0.1 N NRBC#) MANUAL DIFF REQUIRED (test code NO DIFF/SCN CRITERIA = MDIFF) - XR CHEST 1 [id number] 22:49:00 [facility] 1955 Sex: F Name: RADHA LONDONO [facility] : 1955 Age/S: 67 / F [id number] Unit #: [id number] Loc: [place] [address] Phys: Jaquan Dsouza MD Acct: [id number] Dis Date: Status: PRE ER PHONE #: [phone] Exam Date: 09/30/20222244 FAX #: Reason: Code Stroke EXAMS: CPT: [id number] XR CHEST 1 V 70292 Fluoro Time: DAP (Gy m2): Air Kerma (mGy): EXAMINATION: - XR CHEST 1 V HISTORY: Code stroke COMPARISON: None. LOCATION CODE: C3 FINDINGS: Single frontal view of the chest is submitted for evaluation. The lungs are clear. The cardiac silhouette, mediastinum and pulmonary vasculature are unremarkable. The regional osseous structures are intact IMPRESSION: No acute radiographic abnormality at 224 Reported and signed by: Deanna Patti, M.D. CC: PAGE 1 Signed Report Name: RADHA LONDONO [facility] : 1955 Age/S: 67 / F [id number] Unit #: [id number] Loc: [place] [address] Phys: Jaquan Dsouza MD Acct: [id number] Dis Date: Status: PRE ER PHONE #: [phone] Exam Date: 09/30/20222244 FAX #: Reason: Code Stroke EXAMS: CPT: [id number] XR CHEST 1 V 32523 Fluoro Time: DAP (Gy m2): Air Kerma (mGy): (Continued) Technologist: Angel Patel, RT(R) Trnscb Date/Time: 09/30/2022 (2248) [email or web address] Orig Print D/T: S: 09/30/2022 (2251) PAGE 2 Signed Report- CT HEAD/BRAIN W/O CONT 2022-09-30 22:39:00 [facility] : 1955 Sex: F Name: RADHA LONDONO [facility] : 1955 Age/S: 67 / F [id number] Unit #: [id number] Loc: [place] [address] Phys: Jaquan Dsouza MD Acct: [id number] Dis Date: Status: PRE ER PHONE #: [phone] Exam Date: 09/30/20222231 FAX #: Reason: aphasia EXAMS: CPT: [id number] CT HEAD/BRAIN W/O CONT 56900 LOCATION: H48 HISTORY: Female, 67 years of age with aphasia, confusion, right ear pain EXAM: CT BRAIN WITHOUT IV CONTRAST COMPARISON: None TECHNIQUE: Helical axial images were obtained through the brain without IV contrast. Coronal and sagittal reformats were performed. One or more of the f ollowing dose reduction techniques were used: Automated exposure control; adjustment of the mA and/or kV according to the patient size; and/or use of iterative reconstruction technique. Count of previous potential high dose CT and nuclear medicine cardiac studies in past 12 months documented at this i nstitution: 0 FINDINGS: Incidental note made of empty sella syndrome. There is no acute intra-axial or extra-axial hemorrhage, mass, mass effect or midline shift. No acute loss of the cortical flores/white junctions is seen. There is diffuse parenchymal atrophy consistent with patient age. Mild periventricular hypodensities are consistent with chronic small vessel ischemic disease. No calvarial fracture is seen. The sinuses and mastoids are clear. IMPRESSION: 1. No acute calvarial fracture, intracranial hemorrhage, infarct, or mass. 2. Age- related atrophy and chronic small vessel ischemic injuries. at 2239 Reported and signed by: Naima Lizama MD CC: Technologist:Angel Patel, RT(R); ... CTDI: DLP: Trnscb Date/Time: 09/30/2022(2238) [email or web address] Orig Print D/T: S: 09/30/2022 (0159) PAGE 1 Signed Report
[2022-10-08 23:08] LABS: Protime INR 1.06
[2022-10-08 23:10] LABS: Absolute Lymphocytes (CBC) 3.4 K/uL (0.7-4.9); Hematocrit 45.6 % (36.0-45.0); Lymphocytes % 27.9 % (15.3-44.8); MCV 89.4 fL (80-100); MPV 7.4 fL (7.6-11.3)
[2022-10-09] LABS: Potassium 2.8 mmol/L (3.5-5.1)
--- NOTE | 2022-10-09 00:02 | ER ---
Nurse's Notes [facility] Name: Patito Self Age: 67 yrs Sex: Female : 1955 Arrival Date: 10/08/2022 Time: 22:23 Bed 5 Private MD: Diagnosis: Headache Presentation: 10/08 22:37 Chief complaint: Patient states: Pt reports headache in the posterior top of her head kb3 x30 minutes, describes it as pressure 6/10. Denies N/V/visual disturbances. States she had a stroke last Thursday and has been taking all her medications as prescribed. MD increased HCTZ dose to 25mg daily this morning due to ongoing elevated BP. Coronavirus screen: Vaccine status: Patient reports being unvaccinated. Client denies travel out of the [place] in the last 14 days. Ebola Screen: Patient negative for fever greater than or equal to 101.5 degrees Fahrenheit, and additional compatible Ebola Virus Disease symptoms Patient denies exposure to infectious person. Patient denies travel to an Ebola-affected area in the 21 days before illness onset. Initial Sepsis Screen: Does the patient meet any 2 criteria? No. Patient's initial sepsis screen is negative. Does the patient have a suspected source of infection? No. Patient's initial sepsis screen is negative. Risk Assessment: Do you want to hurt yourself or someone else? Patient reports no desire to harm self or others. Onset of symptoms was October 08, 2022 at 22:10. 22:37 Method Of Arrival: Ambulatory kb3 22:37 Acuity: MARCIANO 3 kb3 Triage Assessment: 22:40 Headache History: The patient has had previous headaches and this one is similar to kb3 previous episodes. General: Appears in no apparent distress. Behavior is calm, cooperative. Pain: Complains of pain in left parietal area and right parietal area Pain radiates to back of neck Pain currently is 6 out of 10 on a pain scale. Quality of pain is described as pressure, Pain began 30 min ago. Also complains of no other associated symptoms. 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 Gait is steady, Speech with expressive aphasia noted, Began last week on Thursday when pt dx with CVA. Facial symmetry appears normal, Pupils are PERRLA, Intact Reports dizziness, headache. Historical: - Allergies: 22:40 Morphine; kb3 - Home Meds: 22:40 hydrochlorothiazide 25 mg Oral tab 1 tab once daily [Active]; aspirin 81 mg Oral chew 1 kb3 tab once daily [Active]; atorvastatin 80 mg oral tab 1 tab once daily [Active]; topiramate 50 mg oral tab 1 tab 2 times per day [Active]; - PMHx: 22:40 Hypercholesterolemia; Hypertensive disorder; Cerebrovascular accident; kb3 - PSHx: 22:40 None; kb3 - Immunization history:: Adult Immunizations unknown, Client reports having NOT received the Covid vaccine. Last tetanus immunization: unknown. - Social history:: Smoking status: Patient denies any tobacco usage or history of. Screenin:40 Abuse screen: Denies threats or abuse. Denies injuries from another. Nutritional kd3 screening: No deficits noted. Tuberculosis screening: No symptoms or risk factors identified. Fall Risk None identified. Assessment: 22:39 General: Appears in no apparent distress. comfortable, Behavior is calm, cooperative. kd3 Pain: Complains of pain in headache. Neuro: Level of Consciousness is awake, alert, obeys commands, Oriented to person, place, time, situation. Cardiovascular: Patient's skin is warm and dry. Respiratory: Airway is patent Trachea midline Respiratory effort is even, unlabored, Respiratory pattern is regular, symmetrical. Vital Signs: 22:37 BP 178 / 87; Pulse 105; Resp 20; Temp 98.4; Pulse Ox 96% ; Weight 92 kg; Height 5 ft. 1 kb3 in. (154.94 cm); Pain 6/10; 22:40 BP 162 / 95; Pulse 98; Resp 17; Pulse Ox 97% on R/A; kd3 22:53 BP 146 / 93; kd3 10/09 00:05 BP 152 / 99; Pulse 98; Resp 16; Pulse Ox 98% on R/A; kd3 10/08 22:37 Body Mass Index 38.32 (92.00 kg, 154.94 cm) kb3 ED Course: 10/08 22:23 Patient arrived in ED. ja2 22:25 Judy Westbrook, RN is Primary Nurse. kd3 22:28 Ariane Rudolph MD is Attending Physician. sp3 22:40 Triage completed. kb3 22:40 Patient has correct armband on for positive identification. kd3 22:40 Arm band placed on right wrist. Patient placed in an exam room, on a stretcher. kb3 22:51 CBC with Diff Sent. kd3 22:51 Chem 7 Sent. kd3 22:51 PT-INR Sent. kd3 23:12 CT Head Brain wo Cont In Process Unspecified. EDMS 10/09 00:06 No provider procedures requiring assistance completed. IV discontinued, intact, kd3 bleeding controlled, No redness/swelling at site. Pressure dressing applied. Administered Medications: 00:05 Drug: Potassium Chloride 40 mEq Route: PO; kd3 00:06 Follow up: Response: No adverse reaction kd3 Medication: 10/08 22:51 VIS not applicable for this client. kd3 Outcome: 10/09 00:00 Discharge ordered by . sp3 00:06 Discharged to home ambulatory. kd3 00:06 Condition: stable 00:06 Discharge instructions given to patient, Instructed on discharge instructions, follow up and referral plans. Demonstrated understanding of instructions, follow-up care. 00:07 Patient left the ED. kd3 Signatures: Dispatcher [employer] EDLA Ariane Rudolph MD MD sp3 Anna Marie Alas Kyli, RN RN kd3 Francisca Mcdonald, DANIEL RN kb3 Corrections: (The following items were deleted from the chart) 10/08 22:42 22:40 Home Meds: lisinopril Oral; kb3 kb3 22:47 22:37 BP 178 / 87; Pulse 105bpm; Resp 20bpm; Pulse Ox 96%; Temp 98.4F; 69.85 kg; Height kb3 5 ft. 1 in.; BMI: 29.1; Pain 6/10; kb3 22:48 22:37 BP 178 / 87; Pulse 105bpm; Resp 20bpm; Pulse Ox 96%; Temp 98.4F; 97 kg; Height 5 kb3 ft. 1 in.; BMI: 40.4; Pain 6/10; kb3
--- NOTE | 2022-10-09 00:02 | EDPHYS ---
Physician Documentation [facility] Name: Patito Self Age: 67 yrs Sex: Female : 1955 Arrival Date: 10/08/2022 Time: 22:23 Bed 5 Private MD: ED Physician Ariane Rudolph HPI: 10/08 22:58 This 67 yrs old Female presents to ER via Ambulatory with complaints of sp3 Headache, High Blood Pressure. 22:58 67-year-old female with history of hypertension, prior CVA, hyperlipidemia presents to [facility] the ED for chief complaint mild headache and elevated blood pressure noticed by home health today. Patient was seen here 8 days ago and had a negative CT scan of the head, CTA of the brain, and MRI of the brain and was discharged. The next day patient continued to have symptoms and was seen at [facility] in [place] where she was diagnosed with a CVA per patient. Currently she has no deficits and no complaints of any weakness, sensory deficits, speech or gait abnormalities, or any other concerns. ROS is negative for neck pain, fever, URI symptoms, chest pain, shortness of breath, back pain, abdominal pain, nausea, vomiting, diarrhea, rash, any other symptoms at this time.. Historical: - Allergies: 22:40 Morphine; kb3 - Home Meds: 22:40 hydrochlorothiazide 25 mg Oral tab 1 tab once daily [Active]; aspirin 81 mg Oral chew 1 kb3 tab once daily [Active]; atorvastatin 80 mg oral tab 1 tab once daily [Active]; topiramate 50 mg oral tab 1 tab 2 times per day [Active]; - PMHx: 22:40 Hypercholesterolemia; Hypertensive disorder; Cerebrovascular accident; kb3 - PSHx: 22:40 None; kb3 - Immunization history:: Adult Immunizations unknown, Client reports having NOT received the Covid vaccine. Last tetanus immunization: unknown. - Social history:: Smoking status: Patient denies any tobacco usage or history of. ROS: 22:59 Constitutional: Negative for fever, chills, and weight loss, Eyes: Negative for injury, sp3 pain, redness, and discharge, ENT: Negative for injury, pain, and discharge, Neck: Negative for injury, pain, and swelling, Cardiovascular: Negative for chest pain, palpitations, and edema, Respiratory: Negative for shortness of breath, cough, wheezing, and pleuritic chest pain, Abdomen/GI: Negative for abdominal pain, nausea, vomiting, diarrhea, and constipation, Back: Negative for injury and pain, MS/Extremity: Negative for injury and deformity, Skin: Negative for injury, rash, and discoloration, Allergy/Immunology: Negative for hives, rash, and allergies, Endocrine: Negative for neck swelling, polydipsia, polyuria, polyphagia, and marked weight changes, Hematologic/Lymphatic: Negative for swollen nodes, abnormal bleeding, and unusual bruising. 22:59 All other systems are negative. Exam: 22:59 Constitutional: This is a well developed, well nourished patient who is awake, alert, sp3 and in no acute distress. Head/Face: Normocephalic, atraumatic. Eyes: Pupils equal round and reactive to light, extra-ocular motions intact. Lids and lashes normal. Conjunctiva and sclera are non-icteric and not injected. Cornea within normal limits. Periorbital areas with no swelling, redness, or edema. ENT: Nares patent. No nasal discharge, no septal abnormalities noted. External auditory canals are clear. Oropharynx with no redness, swelling, or masses, exudates, or evidence of obstruction, uvula midline. Mucous membranes moist. Neck: Trachea midline, no thyromegaly or masses palpated, and no cervical lymphadenopathy. Supple, full range of motion without nuchal rigidity, or vertebral point tenderness. No Meningismus. Chest/axilla: Normal chest wall appearance and motion. Nontender with no deformity. No lesions are appreciated. Cardiovascular: Regular rate and rhythm with a normal S1 and S2. No gallops, murmurs, or rubs. Normal PMI, no JVD. No pulse deficits. Respiratory: Lungs have equal breath sounds bilaterally, clear to auscultation and percussion. No rales, rhonchi or wheezes noted. No increased work of breathing, no retractions or nasal flaring. Abdomen/GI: Soft, non-tender, with normal bowel sounds. No distension or tympany. No guarding or rebound. No evidence of tenderness throughout. Back: No spinal tenderness. No costovertebral tenderness. Full range of motion. Skin: Warm, dry with normal turgor. Normal color with no rashes, no lesions, and no evidence of cellulitis. MS/ Extremity: Pulses equal, no cyanosis. Neurovascular intact. Full, normal range of motion. Neuro: Awake and alert, GCS 15, oriented to person, place, time, and situation. Cranial nerves II-XII grossly intact. Motor strength 5/5 in all extremities. Sensory grossly intact. Cerebellar exam normal. Normal gait. Psych: Awake, alert, with orientation to person, place and time. Behavior, mood, and affect are within normal limits. Vital Signs: 22:37 BP 178 / 87; Pulse 105; Resp 20; Temp 98.4; Pulse Ox 96% ; Weight 92 kg; Height 5 ft. 1 kb3 in. (154.94 cm); Pain 6/10; 22:40 BP 162 / 95; Pulse 98; Resp 17; Pulse Ox 97% on R/A; kd3 22:53 BP 146 / 93; kd3 10/09 00:05 BP 152 / 99; Pulse 98; Resp 16; Pulse Ox 98% on R/A; kd3 10/08 22:37 Body Mass Index 38.32 (92.00 kg, 154.94 cm) kb3 MDM: 10/08 22:41 Patient medically screened. sp3 23:00 Data reviewed: vital signs, nurses notes, lab test result(s), radiologic studies. ED sp3 course: 67-year-old female with headache and mild hypertension status post recent CVA. Differential diagnosis includes hypertensive urgency, headache, ICH, my essential hypertension, among others. Patient declined any pain medications stating that her pain "was not that bad". Blood pressure is now 146/93 without any further intervention and therefore no medication is currently indicated. Work-up will include CT scan of the head, laboratory values, and general observation. If work-up is negative, we will discharge patient home to PCP follow-up.. 23:59 ED course: CT scan of the head is normal laboratory values are within normal limits sp3 with exception of potassium of 2.8. We will replenish her potassium with 40 mEq p.o. and discharge patient home to PCP follow-up. Blood pressure remains normal without need for intervention.. 10/08 22:40 Order name: CBC with Diff; Complete Time: 23:46 sp3 10/08 22:40 Order name: Chem 7 sp3 10/08 22:40 Order name: CT Head Brain wo Cont sp3 10/08 22:40 Order name: IV; Complete Time: 22:51 sp3 10/08 22:40 Order name: PT-INR; Complete Time: 23:30 sp3 10/08 22:40 Order name: NPO; Complete Time: 22:51 sp3 10/08 22:40 Order name: Cardiac monitoring; Complete Time: 22:51 sp3 Administered Medications: 10/09 00:05 Drug: Potassium Chloride 40 mEq Route: PO; kd3 00:06 Follow up: Response: No adverse reaction kd3 Disposition Summary: 10/09/22 00:00 Discharge Ordered Location: Home sp3 Condition: Stable sp3 Diagnosis - Headache sp3 Followup: sp3 - With: Private Physician - When: Upon discharge from the Emergency Department - Reason: Recheck today's complaints Discharge Instructions: - Discharge Summary Sheet sp3 - General Headache Without Cause sp3 Forms: - Medication Reconciliation Form sp3 - Thank You Letter sp3 - Antibiotic Education sp3 - Prescription Opioid Use sp3 Signatures: Dispatcher [employer] EDMS Ariane Rudolph MD MD sp3 Judy Westbrook, RN RN kd3 Francisca Mcdonald, RN RN kb3 Corrections: (The following items were deleted from the chart) 10/08 22:42 22:40 Home Meds: lisinopril Oral; kb3 kb3
[2022-10-09] MEDS ORDERED: POTASSIUM CL SA 10 MEQ TAB PO ONE ×2 (00:04→00:06)
[2022-10-09 00:35] VITALS: TEMP 98.4
[2022-10-09 00:38] VITALS: BP 152/99; O2SAT 98
--- NOTE | 2022-10-09 10:00 | RAD REPORT ---
EXAM DESCRIPTION: CT - Head Brain Wo Cont - 10/09/2022 6:11 am CLINICAL HISTORY: 67 years Female HEADACHE COMPARISON: MRI brain and CTA head and neck dated 09/30/2022 TECHNIQUE: Contiguous axial images of the brain were obtained without the administration of intraven ous contrast.This exam was performed according to our departmental dose-optimization program which in cludes use of Automated Exposure Control, adjustment of the mA and/or kV according to patient size an d/or use of iterative reconstruction technique. DLP: 897 mGy*cm FINDINGS: Brain: No acute intracranial hemorrhage. No extra-axial collection. No mass effect or lori iation. Unchanged prominence of the sulci and cisterns. Patchy periventricular and subcortical whit e matter hypodensity is noted. Ventricles: Within normal limits in size. Globes and orbits: No acute abnormality. Bones: No acute osseous finding Paranasal sinuses: Paranasal sinuses are clear. Mastoid air cells: Well pneumatized. Soft tissues: Within normal limits IMPRESSION: 1. No acute hemorrhage, hydrocephalus or herniation. 2. Cerebral volume loss and chronic small vessel ischemic changes. Consider MRI brain for further maged luation. Electronically signed by: Lencho Dueñas DO 10/08/2022 11:27 PM MACHINE OPERATOR [employer] Due to temporary technical issues with the PACS/Fluency reporting system, reports are being signed by the in house radiologists without review as a courtesy to insure prompt reporting. The interpreting radiologist is fully responsible for the content of the report.
== END 2022-10-09 00:07 | disposition home or self-care (01) ==
LOC: ER 22:18
DX: R51.9 Headache, unspecified (principal); E78.00 Pure hypercholesterolemia, unspecified; Z86.73 Personal history of transient ischemic attack (TIA), and cerebral infarction without residual deficits
CPT/HCPCS: 36415; 70450; 80048; 85025; 85610; 99283

== ENCOUNTER 2024-05-18 10:04 | Day surgery (SDC) | payer OTHER ==
[2024-05-17 09:32] LABS: Absolute Basophils 0.1 K/uL (0-0.5); Absolute Eosinophils 0.1 K/uL (0-0.5); Absolute Lymphocytes (CBC) 2.2 K/uL (0.7-4.9); Absolute Monocytes 0.6 K/uL (0.1-1.3); Absolute Neutrophil 5.2 K/uL (1.8-8.0); Basophils % 0.8 % (0-1.3); Eosinophils % 1.5 % (0-4.4); Hematocrit 42.4 % (36.0-45.0); Hemoglobin 14.1 g/dL (12.0-15.0); Lymphocytes % 26.7 % (15.3-44.8); MCH 31.6 pg (27.0-35.0); MCHC 33.4 g/dL (32.0-36.0); MCV 94.7 fL (80-100); Monocytes % 6.9 % (3.3-12.3); Neutrophils % 64.1 % (41.7-73.7); Nucleated Red Blood Cells % 0.1 % (0-0); Platelets 285 thou/uL (152-406); RBC Red Blood Cell Count 4.47 M/uL (3.86-4.86); Red Cell Distribution Width 13.4 % (12.1-15.2)
[2024-05-17 09:52] LABS: Albumin 3.8 g/dL (3.4-5.0); Anion Gap 6.8 mEq/L (5.0-15.0); Bilirubin Total 0.7 mg/dL (0.2-1.0); Globulin 3.8 g/dL (2.3-3.5); Potassium 3.8 mEq/L (3.5-5.1); Protein, Total 7.6 g/dL (6.4-8.2)
--- NOTE | 2024-05-17 14:12 | EKG ---
Test Date: 2024-05-17 Test Time: 09:02:49 Awning Spreader: LENNY MEASUREMENT RESULTS: Intervals: Rate: 76 AK: 168 QRSD: 80 QT: 368 QTc: 414 [place]: P: 69 AK: 168 QRS: 20 T: 45 INTERPRETIVE STATEMENTS: Normal sinus rhythm with sinus arrhythmia Normal ECG Compared to ECG 09/30/2022 10:35:00 Sinus tachycardia no longer present Left ventricular hypertrophy no longer present Electronically Signed On 05-17-24 14:10:33 CDT by Gregg Wallace
[2024-05-18] MEDS: Ringers Lactate 1,000 ML IV ONE (10:52)
[2024-05-18] MEDS ORDERED: FENTANYL CITR 100 MCG/2 ML ONE ×2 (11:28→13:40)
[2024-05-18] MEDS ORDERED: MIDAZOLAM HCL 2 MG/2 ML INJ ONE (11:28)
[2024-05-18] MEDS ORDERED: ROCURONIUM 50 MG/5 ML VIAL IV ONE (11:28)
[2024-05-18] MEDS ORDERED: propofoL 200 MG/20 ML VIAL IV ONE (11:28)
[2024-05-18] MEDS ORDERED: ONDANSETRON 4 MG/2 ML VIAL ONE (11:28)
[2024-05-18] MEDS ORDERED: LIDOCAINE 1% MPF 5 ML VIAL ONE (11:28)
[2024-05-18] MEDS ORDERED: KETOROLAC 30 MG/ML INJ ONE (13:04)
[2024-05-18] MEDS: CEFOXITIN SODIUM 2 GM/VIAL ONE (13:10)
[2024-05-18] MEDS: LIDOCAINE HCL/EPINEPHRINE 20 ML MDV ONE (13:10)
--- NOTE | 2024-05-18 14:36 | P.OP ---
Preoperative diagnosis: Chronic Cholecystitis with Cholelithiasis Postoperative diagnosis: Chronic Cholecystitis with Cholelithiasis Primary procedure: Laparoscopic Cholecystectomy with ICG Anesthesia: GETA + Local Estimated blood loss: <20cc Specimen: Gallbladder Findings: Distended GB with Chronic Cholecystitis with Cholelithiasis, dense adhesion Complications: None Implants: Tri Hemostatic Powder Transferred to: Recovery Room Condition: Good
[2024-05-18] MEDS: ONDANSETRON 4 MG/2 ML VIAL ONE (15:05)
[2024-05-18] MEDS: HYDROMORPHONE HCL 1 MG/ML INJ ONE (15:10)
[2024-05-18 15:32] VITALS: O2SAT 98
[2024-05-18 15:51] VITALS: BP 122/66; TEMP 97.3
[2024-05-18] MEDS: HYDROCODONE/APAP 7.5/325 MG TAB ONE (16:28)
--- NOTE | 2024-05-19 02:19 | OP ---
Date of Procedure: 05/18/2024 Surgeon: Bernardo Deng MD, Preoperative Diagnosis: Chronic cholecystitis with cholelithiasis. Postoperative Diagnosis: Chronic cholecystitis with cholelithiasis. Procedure Performed: Laparoscopic cholecystectomy with indocyanine green cholangiography. Anesthesia: General endotracheal plus local with 0.25% Marcaine. Estimated Blood Loss: Less than 20 cc. Specimen: Gallbladder. Findings: Distended gallbladder with chronic cholecystitis and cholelithiasis and severe dense adhes ions from the right colon and stomach to the Liliana's pouch of the gallbladder extending all the wa y up into the midportion of the gallbladder. Complications: None. Implants: Tri hemostatic powder utilized. Disposition: The patient was transferred to recovery room in good condition. Procedure In Detail: After informed consent was obtained, the patient was brought to the operating r oom, prepped and draped in the usual sterile fashion. After adequate anesthesia was achieved, I anes thetized the area of the supraumbilical position down to subcutaneous tissues. 5 mm 0-degree optical trocar was introduced in the abdomen without incident or complication. Insufflation was obtained to 15 mmHg at this time. There was no injury to vital structures upon entry in the abdomen. Three add itional trocars were placed, one in the epigastrium, one in the right upper quadrant, one in the righ t mid abdomen. All of these were similarly anesthetized and sharply incised and a [address] aced under direct visualization without incident or complication. The umbilical trocar was then upsi zed to a 12 mm under direct visualization without incident or complication. The patient was position ed head up, right-side up position. Ratcheted grasper was used to grasp the patient's fundus of the gallbladder, placed it towards the patient's right shoulder. Dissection continued down to remove ome ntal attachments and dense adhesions of the anterior surface of the gallbladder described above. Aft er this was done using a combination of blunt dissection as well as electrocautery and encircled two structures, identified both the cystic duct and cystic artery. These structures were encircled and s keletonized at this point. Critical view of safety was obtained at this time. I then used Indocyani ne green cholangiography to confirm the anatomy as described above. After this was completed, I plac ed double titanium clips doubly on the single side and singly on the proximal side of both cystic laurie t and cystic artery. These structures were ligated between Endo Enio. At this point, the gallblad tomas was removed from the hepatic fossa with minimal oozing from the hepatic bed at this point. Hemos tatic maneuvers were required to achieve hemostasis at this point near the proximal aspect of the gal lbladder using minimal electrocautery. At this point, the gallbladder was placed in EndoCatch bag, r emoved through the umbilical trocar and sent off for pathologic examination. There was no spillage o f bowel throughout the procedure. The gallbladder was sent off for pathologic examination. After re -insufflation was obtained at this point, the area was copiously irrigated. No additional hemostatic measures were required at this point. Clips were found to be in good anatomic position. At this po int, ICG cholangiography confirmed there was no leakage of bile at this point of the procedure. The remaining effluent was suctioned out and then sprayed Tri hemostatic powder matrix into the subhep atic space and applied it quite evenly at this point. The patient positioned back in neutral positio n. Remaining effluent was suctioned out from the perihepatic space. At this point, the 12 mm trocar site was closed using a Alex-Abdulkadir suture passer with an 0 Vicryl in an interrupted fashion wit h good approximation of tissues. The abdomen was desufflated under direct visualization without inci dent or complication. Remainder of trocars removed. All skin edges were then copiously irrigated an d closed with 4-0 Monocryl in a running fashion. Dermabond was placed over top. The patient tolerat ed the procedure well without incident or complication and transferred to PACU in good condition. All counts were correct at the end of the case. TK/MODL Voice ID: [id number] Report ID: [id number]
== END 2024-05-18 16:45 | disposition home or self-care (01) ==
LOC: OR 10:04
PROVIDERS: ATTEND Surgery
PROC: BF50200 Other Imaging of Bile Ducts using Fluorescing Agent, Indocyanine Green Dye, Intraoperative (ICD-10-PCS; 2024-05-18)
PROC: 0FT44ZZ Resection of Gallbladder, Percutaneous Endoscopic Approach (ICD-10-PCS; principal; 2024-05-18 12:45)
DX: K80.10 Calculus of gallbladder with chronic cholecystitis without obstruction (principal); I10 Essential (primary) hypertension; Z86.73 Personal history of transient ischemic attack (TIA), and cerebral infarction without residual deficits
CPT/HCPCS: 36415; 80053; 85025; 88304; 93005; J0694; J1170; J2001; J2250; J2405; J2704; J3010; J7120

== ENCOUNTER 2025-02-11 19:49 | Emergency (ER) | payer OTHER ==
--- OUTSIDE RECORDS SUMMARY | 2025-02-11 19:51 | XMS REPORT | Continuity of Care Document ---
Author Name Unknown Address [address] [facility] [address] [place] [address] [facility] Address [address] [facility] [address] [place] [address] Care Team Providers Care Rn Trauma Name Role Phone Kayleigh Phipps Attending Clinician Unavailable Kayleigh Phipps Admitting Clinician Unavailable Payers Payer Name Policy Type Policy Number Effective Date Expirati on Date Source Allergies, Adverse Reactions, Alerts Allergy Name Allergy Type Status Severity Reaction(s) Onset Date Inactive Date Treating Clinician Comments Source morphine DA Active U UNKNOWN 2021-11 00:00: 00 [facility] No Known Allergie s DA Active U 06-08 00:00: 00 [facility] No Known Allergie s DA Active U 06-08 00:00: 00 [facility] Procedures Procedure Date / Time Performed Performing Clinicia n Source [id number] 2022-10-01 00:00:00 BOBBY.01 [facility] [id number] 2022-10-01 00:00:00 BOBBY.01 [facility] Encounters Start Date/Time End Date/Time Encounter Type Admission Type Attending Clinicians Care Facility Care Department Encounter ID Source 2022-10-01 15:56:00 2022-10-02 13:14:00 Inpatient Kayleigh Rapp [facility]02 [id number] [facility] Results Test Description Test Time Test Comments Results Result Co mments Source LIPID PROFILE (CORONARY RISK)2022-10-02 05:01:00* Test Item Value Reference Range Interpretation Comme nts TRIGLYCERIDES (test code = TRIG) 126 MG/DL 0-150 N CHOLESTEROL (test code = CHOL) 221 MG/DL 133-200 H CHOLESTEROL/HDL RATIO (test code = CHOLHDL) 4.25 RATIO See_Comment RISK ASSOCIATED WITH CHOL/HDL RATIOS: RISK MALE FEMALE1/2 AVERAGE 3.43 3.27AVERAGE 4.97 4.442X AVERAGE 9.55 7.053X AVERAGE 23.39 11.04 NOTE THAT THE REFERENCE VALUE IS RELATED TO RISK LEVELS ASRECOMMENDED BY THE [facility]. [Automated message] The system which generated this result transmitted reference range: 0-. The reference range was not used to interpret this result as normal/abnormal. HDL CHOLESTEROL (test code = HDL) 52 MG/DL 40-59 N NON-HDL CHOLESTEROL (test code = NHDL) 169 mg/dL <130 H LIPOPROTEIN LDL (test code = LDL) 147 MG/DL 0-129 H <100 QTKMKFW31 0 - 129 NEAR OPTIMAL/ABOVE QNQEJIF001 - 159 TQXFYCNZJT005 - 189 HIGH>OR= 190 VERY HIGHNOTE THAT GUIDELINES ARE PROVIDED BY NATIONAL CHOLESTEROLEDUCATION PROGRAM ADULT TREATMENT PANEL III LDL/HDL (test code = LDL/HDL) 2.82 Ratio See_Comment N [Automated [employer] Trendrating] The system which generated this result transmitted reference range: 1.48-3.22 Avg. The reference range was not used to interpret this result as normal/abnormal. Comment: FASTING IN AMCSF CELL [id number] 18:18:00* Test Item Value Reference Range Interpretation Comme nts CSF COLOR (test code = COLCSF) COLORLESS DESCRIP. COLORLESS CSF APPEARANCE (test code = APPCSF) CLEAR DESCRIP. CLEAR CSF TUBE # (test code = TUBECSF) #3 Tube# Tube Used CSF WBC (test code = WBCCSF) 2 #/mm3 0-5 N CSF RBC (test code = RBCCSF) 1000 #/mm3 0-0 H CSF [id number] 18:18:00* Test Item Value Reference Range Interpretation Comme nts CSF GLUCOSE (test code = GLUCSF) 69 MG/DL 40-75 N CSF TOTAL [id number] 18:18:00* Test Item Value Reference Range Interpretation Comme nts CSF TOTAL PROTEIN (test code = PROTCSF) 35.4 MG/DL 15.0-45.0 N - XR LUMBAR [id number] 16:49:00 [facility] 1955 Sex: F Name: PATITO LONDONO [facility] : 1955 Age/S: 67 / F [address] [facility] [place] Unit #: [id number] Loc: [place] [address] Phys: Sue Wills Acct: [id number] Dis Date: Status: ADM IN PHONE #: [phone] Exam Date: 10/01/2022 1630 FAX #: Reason: EVAL FOR IIH EXAMS: CPT: [id number] XR LUMBAR PUNCTURE 95449 Fluoro Time: DAP (Gy m2): Air Kerma [...] the lumbar thecal sac with return of clearcerebrospinal fluid. Approximately 12 cc of clear CSF was obtained, and sent to lab for further analysis. Following this the needle was removed. The patient appeared to tolerate the procedure well without immediate complication. The opening and closing pressures were measured with the patient in prone position. The opening pressure was 6 cm water and closing pressure was less than 5 cm of water.58 seconds of fluoroscopy time was used to complete the procedure. Total images: 1 IMPRESSION: 1. Technically successful fluoroscopically guided lumbar puncture. No immediate complications. 2. Opening pressure was 6. Closing pressure was less than 5. at 9667 Reported and signed by: Patricio Taylor M.D. CC: Sue SERRA; Kayleigh Phipps MD PAGE 1 Signed Report Name: PATITO LONDONO [facility] : 1955 Age/S: 67 / F [address] [address] [place] Unit #: [id number] Loc: [place] [address] Phys: Sue Wills Acct: [id number] Dis Date: Status: ADM IN PHONE #: [phone] Exam Date: 10/01/2022 1630 FAX #: Reason: EVAL FOR IIH EXAMS: CPT: [id number] XR LUMBAR PUNCTURE 40866 Fluoro Time: DAP (Gy m2): Air Kerma (mGy): (Continued) Technologist: Angel Patel, RT(R) Trnscb Date/Time: 10/01/2022 (1648) [email or web address] Orig Print D/T: S: 10/01/2022 (134) PAGE 2 Signed Report- MRI BRAIN W/O [id number] 08:39:00 [facility] : 1955 Sex: F FAX: Joce Cary FACE HARDENER [phone] Camps: PM St: ADM FAX: Kayleigh Phipps MD [phone] Name: PATITO LONDONO [facility] : 1955 Age/S: 67/F [address] [address] [place] Unit #: [id number] Loc: [place] [address] Phys: Gabrielle Morrissey APRNNP Acct: [id number] Dis Date: Status: ADM IN PHONE #: [phone] Exam Date: 10/01/2022 0800 FAX #: Reason: CVA, expressive aphasia EXAMS: CPT: [id number] MRI BRAINW/O CONTRAST 54289 Location: B2 EXAM: MRI brain without contrast DATE:10/01/2022 1:58 AM INDICATION:CVA, expressive aphasia COMPARISON: CT head 09/30/2022 TECHNIQUE: Multiplanar multisequence images of the brain were obtained without contrast material administration. DISCUSSION: Few foci of restricted diffusion are present in the left periatrial white matter. Volume loss. Hyperintense T2 lesionsin the supratentorial white matter consistent with small vessel disease. Remote infarct in the right basal ganglia. No acute intracranial hemorrhage, hydrocephalus or midline shift. [...] level of the left tegmen mastoideum and tympani(image 15 series 8). There is remodeling of the sella turcica, with a partial empty sella appearance. Trace mucosal thickening within the left maxillary sinus. PAGE 1 Signed Report (CONTINUED) FAX: Viktoria Gabrielle Morrissey FACE HARDENER [phone] Camps: PM St: ADM FAX: Kayleigh Phipps MD [phone] Name: LONDONOPATITO [facility] : 1955 Age/S: 67/F [address] [address] [place] Unit #: [id number] Loc: [place] [address] Phys: Gabrielle Morrissey APRNNP Acct: [id number] Dis Date: Status: ADM IN PHONE #: [phone] Exam Date: 10/01/2022 0800 FAX #: Reason: CVA, expressive aphasia EXAMS: CPT: [id number] MRI BRAIN W/OCONTRAST 38118 (Continued) Major intracranial flow voids are well maintained. Opacification of someleft mastoid air cells. IMPRESSION: Few foci of restricted diffusion in the left periatrial white matter secondary to acute ischemia. Volume loss and small vessel disease. Bilateral petrous apex ceph aloceles. 16 x 23 mm left middle cranial [...] Kayleigh Phipps MD Technologist: Stevan Park, RT(R)(CT)(MR) Transcribed Date/Time/By: 10/01/2022 (0839) :ChristoMOP Or ig Print D/T: S: 10/01/2022 (2042) PAGE 2 Signed ReportGLUCOSE BEDSIDE TESTING 2022-10-01 05:25:00* Test Item Value Reference Range Interpretation Comme nts GLUCOSE BEDSIDE TESTING (barber t code = GLUBED) 128 mg/dL 70-110 H UA RFLX MICR CULT IF [id number] 00:44:00* Test Item Value Reference Range Interpretation Comme nts UA COLOR (test code = COLU) YELLOW discript YEL/STRAW UA APPEARANCE (test code = APPU) CLEAR discript CLEAR UA GLUCOSE DIPSTICK (test code = DGLUU) NEGATIVE mg/dL NEG UA BILIRUBIN DIPSTICK (test code = BILU) NEGATIVE mg/dL NEG UA KETONE DIPSTICK (test code = KETU) NEGATIVE mg/dL NEG UA SPECIFIC GRAVITY (test code = SGU) 1.015 SG 1.005-1.030 UA BLOOD DIPSTICK (test code = WINTER) 1+ mg/DL NEG A UA PH DIPSTICK (test code = BAO) 6.0 pH UNITS 5.0-7.0 UA PROTEIN DIPSTICK (test code = PROU) NEGATIVE mg/dL NEG UA UROBILINIOGEN DIPSTICK (test code = URO) 0.2 mg/dL <2.0 UA NITRITE DIPSTICK (test code = TAYO) NEGATIVE SCREEN NEG UA LEUKOCYTE ESTERASE DIPSTICK (test code = LEUU) NEGATIVE Leuk/mcL NEGATIVE UA CULTURE NEEDED? (test code = UACULT) NO, WBC<10 Criteria Culture CHK UA RBC (test code = RBCU) 0-1 #RBC/HPF 0-3 Indication for culture: RiskForSepsis-no oth srcCOVID 19 Asymptomatic IH AG 2022-10-01 00:14:00* Test Item Value Reference Range Interpretation Comme nts COVID 19 Asymptomatic IH AG (test code = COVNONPUIAG) NEGATIVE Negative Per engineer operations and maintenance , negative results should be treated aspresumptive and, if inconsistent with clinical signs andsymptoms or necessary for patient management, should betested with an alternative molecular assay. Negative resultsdo not preclude SARS-CoV-2 infection and should not be usedas the sole basis for patient management decisions. Negative results should be considered in the context of apatient's recent exposures, history, presence of clinicalsigns and symptoms consistent with COVID-19. PROTHROMBIN [id number] 23:22:00* Test Item Value Reference Range Interpretation [facility] PT PATIENT (test code = PTP) 10.8 SECONDS 9.3-12.9 N INTERNATIONAL NORMAL RATIO (test code = INR) 0.95 INR Unit 0.8-1.2 N TARGET INR BY INDICATION Indication INR1. Prophylaxis of venous thrombosis 2.0 - 3.0 (orthopedic surgery), Prophylaxis of venous thrombosis (other than high-risk surgery), Treatment of Deep Vein Thrombosis/Pulmonary Embolism, Prevention of systemic embolism - Tissue heart valves, Acute Myocardial Infarction (to prevent systemic embolism), Valvular heart disease, Acute Myocardial Infarction (to prevent systemic embolism), Valvular heart disease, Atrial Fibrillation, Bileaflet mechanical valve in aortic position.2. Mechanical prosthetic valves (high risk), 2.5 - 3.5 Presence of Lupus Anticoagulant or Antiphospholipid Antibodies, Prevention of systemic embolism - Acute Myocardial Infarction (to prevent recurrent infarct). THROMBOPLASTIN TIME [id number] 23:22:00* Test Item Value Reference Range Interpretation [facility] THROMBOPLASTIN TIME PARTIAL (test code = PTT) 38.5 SECONDS 26-35 H GLUCOSE BEDSIDE [id number] 23:13:00* Test Item Value Reference Range Interpretation [facility] GLUCOSE BEDSIDE TESTING (barber t code = GLUBED) 128 mg/dL 70-110 H BASIC METABOLIC [id number] 23:08:00* Test Item Value Reference Range Interpretation [facility] SODIUM (test code = NA) 140 mmol/L 134-147 N POTASSIUM (test code = K) 3.7 mmol/L 3.4-5.0 N CHLORIDE (test code = CL) 107 mmol/L 100-108 N CARBON DIOXIDE (test code = CO2) 26 mmol/L 21-32 N ANION GAP (test code = GAP) 7.0 GAP calc 4.0-15.0 N GLUCOSE (test code = GLU) 119 MG/DL 70-110 H BLOOD UREA NITROGEN (test code = BUN) 19 MG/DL 7-18 H GLOMERULAR FILTRATION RATE (test code = GFR) >=60 max estimate estGFR >60 CREATININE (test code = CREAT) 0.7 MG/DL 0.6-1.0 N CALCIUM (test code = CA) 10.0 MG/DL 8.5-10.1 N Completed by Nursing: NOTROP-I HIGH [id number] 23:08:00* Test Item Value Reference Range Interpretation Comme nts TROP-I HIGH SENSITIVITY (test code = TROPIHS) 3.8 ng/L 0-34 N CAUTION: Units o f the current test methodology (ng/L) differfrom the prior test methodology (ng/mL) by a factor of 1000. 99th Percentile Upper Reference Limit (URL):Females: 34 ng/LMales: 54 ng/L In order to distinguish acute elevations of high sensitivitytroponin from other clinical conditions, the FourthUniversal Definition of Myocardial Infarction stressesclinical assessment and the demonstration of a rise and/orfall in serial troponin results above the URL. Results from different methodologies should not be comparedto one another as quantitative results and URLs may varyby method. Completed by Nursing: NO- CT ANGIO [id number] 23:01:00 [facility] [place] : 1955 Sex: F Name: PATITO LONDONOland : 1955 Age/S: 67 / F [address] [address] [place] Unit #: [id number] Loc: [place] [address] Phys: Jaquan Dsouza MD Acct: [id number] Dis Date: Status: PRE ER PHONE #: [phone] Exam Date: 09/30/20222244 FAX #: Reason: aphasia EXAMS: CPT: [id number] CT ANGIO [id number] Exam: - CT ANGIO HEAD, - CT ANGIO NECK Location: H24 HISTORY: aphasia, right ear pain and confusion COMPARISON: Correlation with noncontrast CT of the head from 09/30/2022 at 2231 TECHNIQUE: Axial images of the neck and head were obtained after administration of Isovue-370 intravenous contrast. Images were reformatted to create coronal and sagittal maximum intensity projections. One or more of the following dose reduction techniques were used: Automated exposure control, adjustment of themA and/or kV according to patient size, and/or [...] the external carotid arteries are patent and withinnormal limits. Vertebral arteries: The vertebral arteries arise from the bilateral subclavian arteries. There is no stenosis, occlusion or dissection. The degree of stenosis is based on end vessel luminal diameter per NASCET criteria. Neck: Fascial planes: No abnormalities are noted. Lymph nodes:There is no cervical adenopathy. PAGE 1 Signed Report (CONTINUED) Name: PATITO LONDONO : 1955 Age/S: 67 / F [address] [address] Unit #: [id number] Loc: [place] [address] Phys: Jaquan Dsouza MD Acct: [id number] Dis Date: Status: PRE ER PHONE #: [phone] Exam Date: 11/2021 FAX #: Reason: aphasia EXAMS: CPT: [id number] CT ANGIO NECK [address] (Continued) Bones: Spondylosis is noted in the mid cervical spine. No discrete osteolytic or osteosclerotic lesions are seen. Thorax: No significant abnormality. FINDINGS: CTA Head Internal carotid arteries: Patent. No si gnificant abnormality. Middle cerebral arteries (M1 and M2 segments): Patent. No significant abnormality. Anterior cerebral arteries (A1 and A2 segments): Patent. No significant abnormality. Anteriorcommunicating artery: Patent. No significant abnormality. Vertebral arteries (V4 segments): Patent.No significant abnormality. Basilar artery and branches: Patent. No significant abnormality. Posterior inferior, anterior inferior and superior cerebellar artery origins are patent. Posterior cerebral artery (P1 and P2 segments): Patent. No significant abnormality. Posterior communicating arteries: Not visualized Distal cerebral arteries: No stenosis, occlusion, aneurysmal dilatation or vascular malformation. Slight irregularity of distal cerebral arteries may indicate underlying vasculopathy. Dural venous sinuses: No visualized filling defects. Head with contrast: There is no acute intracranial hemorrhage, mass, mass effect, midline shift or extra-axial fluid collection. No abnormal paren chymal or leptomeningeal enhancement is present. The flores-white differentiation is maintained without evidence for acute major vessel infarct. PAGE 2 Signed Report (CONTINUED) Name: PATITO LONDONO [facility]ly [facility] : 1955 Age/S: 67 / F [address] [facility] [place] Unit #: [id number] Loc: [place] [address] Phys: Jaquan Dsouza MD Acct: [id number] Dis Date: Status: PRE ER PHONE #: [phone] ExamDate: 09/30/20222244 FAX #: Reason: aphasia EXAMS: CPT: [id number] CT ANGIO NECK [address] (Continued) Paranasal sinuses, mastoid air cells and intraorbital contents are within normal limits. Bones of the calvaria and skull base are intact. IMPRESSION: 1. No intracranial large vessel occlusion. No significant stenosis. No aneurysmal dilatation or vascular malformation. 2. Slight are aerated distalcerebral arteries may indicate underlying vasculopathy. 3. No stenosis, occlusion or dissection of the common or internal carotid arteries or vertebral arteries. at 2301 Reported and signed by: Brock Carrillo M.D. CC: Technologist:Angel Patel, RT(R) CTDI: DLP: Trnscb Date/Time: 09/30/2022 (2300) [email or web address] Orig Print D/T: S: 09/30/2022 (6382) PAGE 3 Signed Report- CT ANGIO [id number] 23:01:00 [facility] : 1955 Sex: F Name: PATITO LONDONO [facility] : 1955 Age[facility]S: 67 / F [address] [facility]: [id number] Loc: [place] [address] Phys: Jaquan Dsouza MD Acct: [id number] Dis Date: Status: PRE ER PHONE #: [phone] Exam Date: 09/30/20222244 FAX #: Reason: aphasia EXAMS: CPT: [id number] CT ANGIO HEAD [address] Exam: - CT ANGIO HEAD, - CT ANGIO NECK Location: H24 HISTORY: aphasia, right ear pain and confusion COMPARISON: Correlation with noncontrast CT of the head from 09/30/2022 at 2231 TECHNIQUE: Axial images of the neck and head were obtained after administration of Isovue-370 intravenous contrast. Images were reformatted to create coronal and sagittal maximum intensity projections. One or moreof the following dose reduction techniques were used: Automated exposure control, adjustment of themA and/or kV according to patient size, and/or [...] the external carotid arteries are patent and withinnormal limits. Vertebral arteries: The vertebral arteries arise from the bilateral subclavian arteries. There is no stenosis, occlusion or dissection. The degree of stenosis is based on end vessel luminal diameter per NASCET criteria. Neck: Fascial planes: No abnormalities are noted. Lymph nodes: There is no cervical adenopathy. PAGE 1 Signed Report (CONTINUED) Name: PATITO LONDONO [facility] : 1955 Age/S: 67 / F [address] [address] [place] Unit #: [id number] Loc: [place] [address] Phys: Jaquan Dsouza MD Acct: [id number] Dis Date: Status: PRE ER PHONE #: [phone] Exam Date: 20212 FAX #: Reason: aphasia EXAMS: CPT: [id number] CT ANGIO HEAD [address] (Continued) Bones: Spondylosis is noted in the mid cervical spine. No discrete osteolytic or osteosclerotic lesions are seen. Thorax: No significant abnormality. FINDINGS: CTA Head Internal carotid arteries: Patent. No signif icant abnormality. Middle cerebral arteries (M1 and M2 segments): Patent. No significant abnormality. Anterior cerebral arteries (A1 and A2 segments): Patent. No significant abnormality. Anterior communicating artery: Patent. No significant abnormality. Vertebral arteries (V4 segments): Patent. No s ignificant abnormality. Basilar artery and branches: Patent. No significant abnormality. Posterior inferior, anterior inferior and superior cerebellar artery origins are patent. Posterior cerebral artery (P1 and P2 segments): Patent. No significant abnormality. Posterior communicating arteries: Not visualized Distal cerebral arteries: No stenosis, occlusion, aneurysmal dilatation or vascular malformation. Slight irregularity of distal cerebral arteries may indicate underlying vasculopathy. Dural venous sinuses: No visualized filling defects. Head with contrast: There is no acute intracranial h emorrhage, mass, mass effect, midline shift or extra-axial fluid collection. No abnormal parenchymal or leptomeningeal enhancement is present. The flores-white differentiation is maintained without evidence for acute major vessel infarct. PAGE 2 Signed Report (CONTINUED) Name: PATITO LONDONO : 1955 Age/S: 67 / F [address] [address] [place] Unit #: [id number] Loc: [place] [address] Phys: Jaquan Dsouza MD Acct: [id number] Dis Date: Status: PRE ER PHONE #: [phone] Exam Date:09/30/20222244 FAX #: Reason: aphasia EXAMS: CPT: [id number] CT ANGIO HEAD [address] (Continued) Paranasal sinuses, mastoid air cells and intraorbital contents are within normal limits. Bones of the calvaria and skull base are intact. IMPRESSION: 1. No intracranial large vessel occlusion. No significant stenosis. No aneurysmal dilatation or vascular malformation. 2. Slight are aerated distal cerebral arteries may indicate underlying vasculopathy. 3. No stenosis, occlusion or dissection of the common or internal carotid arteries or vertebral arteries. at 2301 Reported and signed by: Brock Carrillo M.D. CC: Technologist:Angel Patel, RT(R) CTDI: DLP: Trnscb Date/Time: 09/30/2022 (2300) [email or web address] Orig Print D/T: S: 09/30/2022 (2304) PAGE 3 Signed ReportBAPTIST [facility] W/AUTO [id number] 22:56:00* Test Item Value Reference Range Interpretation Comme nts WHITE BLOOD CELL (test code = WBC) 10.4 K/mm3 3.5-11.0 N RED BLOOD CELL (test code = RBC) 4.91 M/mm3 4.70-6.10 N HEMOGLOBIN (test code = HGB) 15.2 G/DL 10.4-14.9 H HEMATOCRIT (test code = HCT) 44.2 % 31.5-44.1 H MEAN CELL VOLUME (test code = MCV) 90.0 Fl 84.5-98.6 N MEAN CELL HGB (test code = MCH) 31.0 pg 27.0-34.2 N MEAN CELL HGB CONCETRATION (test code = MCHC) 34.4 G/DL 31.5-34.0 H RED CELL DISTRIBUTION WIDTH (test code = RDW) 12.6 SD 11.5-14.5 N PLATELET COUNT (test code = PLT) 315 K/mm3 150-450 N MEAN PLATELET VOLUME (test c ode = MPV) 8.90 fL 7.0-10.5 N NEUTROPHIL % (test code = NT%) 61.2 % 40-76 N IMMATURE GRANULOCYTE % (test code = IG%) 0.3 % 0.0-5.0 N LYMPHOCYTE % (test code = LY%) 26.4 % 20.5-51.1 N MONOCYTE % (test code = MO%) 9.8 % 1.7-9.3 H EOSINOPHIL % (test code = EO%) 1.4 % 0.0-6.0 N BASOPHIL % (test code = BA%) 0.9 % 0.0-2.0 N NUCLEATED RBC % (test code = NRBC%) 0.0 /100WBC% 0.0-1.0 N NEUTROPHIL # (test code = NT#) 6.3 K/mm3 1.8-7.6 N IMMATURE GRANULOCYTE # (test code = IG#) 0.03 x10 3/uL 0.00-0.03 N LYMPHOCYTE # (test code = LY#) 2.7 K/mm3 0.6-3.2 N MONOCYTE # (test code = MO#) 1.0 K/mm3 0.3-1.1 N EOSINOPHIL # (test code = EO#) 0.2 K/mm3 0.0-0.4 N BASOPHIL # (test code = BA#) 0.1 K/mm3 0.0-0.1 N NUCLEATED RBC # (test code = NRBC#) 0.0 K/mm3 0.0-0.1 N MANUAL DIFF REQUIRED (test c ode = MDIFF) NO DIFF/SCN CRITERIA - XR CHEST 1 [id number] 22:49:00 [facility] 1955 Sex: F Name: PATITO LONDONO [facility] : 1955 Age/S: 67 / F [address] [address] [place] Unit #: [id number] Loc: [place] [address] Phys: Jaquan Dsouza MD Acct: [id number] Dis Date: Status: PRE ER PHONE#: [phone] Exam Date: 09/30/20225 FAX #: Reason: Code Stroke EXAMS: CPT: [id number] XR CHEST 1 V 45284 Fluoro Time: DAP (Gy m2): Air Kerma (mGy): EXAMINATION: - XR CHEST 1 V HISTORY: Code stroke COMPARISON: None. LOCATION CODE: C3 FINDINGS: Single frontal view of the chest is submitted for evaluation. The lungs are clear. The cardiac silhouette, mediastinum and pulmonary vasculature are unremarkable. The regional osseous structures are intact IMPRESSION: No acute radiographic abnormality at 2249 Reported and signed by:Deanna Armstrong M.D. CC: PAGE 1 Signed Report Name: PATITO LONDONO [place] : 1955 Age/S: 67 / F [facility] Unit #: [id number] Loc: [place] [address] Phys: Jaquan Dsouza MD Acct: [id number] Dis Date: Status: PRE ER PHONE #: [phone] Exam Date: 09/30/20225 FAX #: Reason: Code Stroke EXAMS: CPT: [id number] XR CHEST 1 V 72044 Fluoro Time: DAP (Gy m2): Air Kerma (mGy): (Continued) Technologist: Angel Patel, RT(R) Trnscb Date/Time: 09/30/2022 (2248) [email or web address] Orig Print D/T: S: 09/30/2022 (312) PAGE 2 Signed Report- CT HEAD/BRAIN W/O CONT 2022-09-30 22:39:00 [facility] : 1955 Sex: F Name: PATITO LONDONO [facility] : 1955 Age/S: 67 / F [address] [facility] [place] Unit #: [id number] Loc: [place] [address] Phys: Jaquan Dsouza MD Acct: [id number] Dis Date: Status: PRE ER PHONE #: [phone] Exam Date: 09/30/20222231 FAX #: Reason: aphasia EXAMS: CPT: [id number] CT HEAD/BRAIN W/O CONT 25086 LOCATION: H48 HISTORY: Female, 67 years of age with aphasia, confusion, right ear pain EXAM: CT BRAIN WITHOUT IV CONTRAST COMPARISON: None TECHNIQUE: Helical axial images were obtained through the brain without IV contrast. Coronal and sagittal reformats were performed. One or moreof the following dose reduction techniques were used: Automated exposure control; adjustment of themA and/or kV according to the patient size; and/or use of iterative reconstruction technique. Countof previous potential high dose CT and nuclear medicine cardiac studies in past 12 months documented at this institution: 0 FINDINGS: Incidental note made of empty sella syndrome. There is no acute intra-axial or extra-axial hemorrhage, mass, mass effect or midline shift. No acute loss of the cortical flores/white junctions is seen. There is diffuse parenchymal atrophy consistent with patient age. Mild periventricular hypodensities are consistent with chronic small vessel ischemic disease. No calv arial fracture is seen. The sinuses and mastoids are clear. IMPRESSION: 1. No acute calvarial fracture, intracranial hemorrhage, infarct, or mass. 2. Age- related atrophy and chronic small vessel ischemic injuries. at 2239 Reported and signed by: Naima Lizama MD CC: Technologist:Angel Patel, RT(R); ... CTDI: DLP: Trnscb Date/Time: 09/30/2022 (2238) t.SDR.CLW Orig Print D/T: S: 09/30/2022 (2241) PAGE 1 Signed Report Notes Date/Time Note Provider Source 2022-10-02 10:55:00 [facility] Hospitalist Discharge Summary REPORT#:[id number] REPORT STATUS: Signed DATE:10/02/22 TIME:105 PATIENT: PATITO LONDONO UNIT #: [id number] ROOM/BED: [place] [address] : 57 AGE: 67 SEX: F ATTEND: Kayleigh Phipps MD ADM AUTHOR: Sue Wills * ALL edits or amendments must be made on the electronic/computer document * Sue Wills 10/02/22 1055: General Information Date of admission: Observation Start Date: 10/01/22 Date of admission: 10/01/22 Discharge date: 10/02/22 Discharge diagnosis: Acute CVA in left periatrial white matter Hypertension Hyperlipidemia Medication noncompliance Obesity Hospital course: 67 y/o female with PMHx of HTN, HLD, medication noncompliance, obesity was admitted to the hospital for stroke evaluation. Please refer to Jayshree He for further admission details. Pt was monitored under continuous telemetry and had serial neuro exams. CT head and CTA head/neck showed no acute findings. MRI brain showed an acute ischemia in left periatrial white matter, also with radiologic findings suggestive of idiopathic intracranial hypertension. Neurology was consulted and agreed with proceeding with LP to evaluate for IIH. IR was consulted and pt underwent LP yesterday and opening pressure was 6, closing pressure was 5. Findings not consistent with IIH. Pt symptoms improved and she was evaluated by PT/OT/ST. Her HgbA1c was 5.5, LDL 147. Pt was started on daily ASA and statin, also started on HCTZ for HTN. Neurology started pt on Tompamax for headaches. Will DC home with close PCP and Neurology follow up. Free Text DxA P Notes Free text DxA P notes: Acute CVA in left periatrial white matter - MRI brain showed few foci of restricted diffusion in left periatrial white matter 2/2 acute ischemia - monitor under continuous telemetry - serial neuro exams - start daily ASA, statin - check lipid panel, HgbA1c - check echocardiogram - PT/OT/ST eval - Neurology following, appreciate recs Probable idiopathic intracranial hypertension - MRI brain with findings suggestive of IIH - Neurology following, agree with diagnostic LP - IR consulted for LP, requested opening and closing pressures, will also send CSF studies - start on Tomapax and Diamox per Neuro Hypertension - will allow for permissive HTN in setting of acute CVA - start on loop diuretic tomorrow DVT prophylaxis with Lovenox Full code Med Rec Med Rec Discharge meds: Start taking the following new medications: ASPIRIN EC (ECOTRIN) 81 MG TAB.EC 81 MILLIGRAM ORAL DAILY. Qty = 30 No Refills ATORVASTATIN (LIPITOR) 80 MG TAB 80 MILLIGRAM ORAL BEDTIME. Qty = 30 No Refills TOPIRAMATE (TOPAMAX) 50 MG TAB 50 MILLIGRAM ORAL TWICE DAILY. Qty = 60 No Refills HYDROCHLOROTHIAZIDE (HYDROCHLOROTHIAZIDE) 12.5 MG TAB 12.5 MILLIGRAM ORAL DAILY. Qty = 30 No Refills Objective VS/I O Last Documented: Result Date Time Pulse Ox 98 10/02 08 FiO2 21 10/02 0810 O2 Delivery Room air 10/02 810 B/P 140/87 10/02 737 B/P Mean 0.0 10/02 737 Temp 98.2 10/02 737 Pulse 98 10/02 737 Resp 16 10/02 737 General appearance: alert, awake, no acute distress Head/Eyes: atraumatic, normocephalic, PERRL ENT: moist mucosal membranes, normal dentition Cardiovascular: normal heart sounds, regular rate rhythm Respiratory: symmetric expansion, no distress Abdomen: non-tender, soft, no guarding, no mass/organomegaly, no rebound Extremities: moves all, no edema Neuro/LAMP SHADE ASSEMBLER: alert, oriented X 3, CNII-XII intact, no motor deficits, no sensory deficits, mild expressive aphasia Psychiatry: normal affect, normal judgment/insight Results Findings/Data: Laboratory Tests: 10/02 10/02 10/01 0418 0345 1600 Chemistry Hemoglobin A1c (0.0 - 5.7 % A1C) 5.5 Estim Average Glucose (MG/DLest) 111 Triglycerides (0 - 150 MG/DL) 126 Cholesterol (133 - 200 MG/DL) 221 H LDL Cholesterol Measurd (0 - 129 MG/DL) 147 H Non-HDL Cholesterol (<130 mg/dL) 169 H HDL Cholesterol (40 - 59 MG/DL) 52 LDL/HDL Ratio (1.48 - 3.22 Avg Ratio) 2.82 Cholesterol/HDL Ratio (0 RATIO) 4.25 Other Body Source CSF Appearance (CLEAR DESCRIP.) CLEAR CSF Color (COLORLESS DESCRIP.) COLORLESS CSF WBC (0 - 5 #/mm3) 2 CSF RBC (0 - 0 #/mm3) 1000 H CSF Cell Count Tube # (Tube Used Tube#) #3 CSF Glucose (40 - 75 MG/DL) 69 CSF Total Protein (15.0 - 45.0 MG/DL) 35.4 Radiology data: Recent Impressions: RADIOLOGY - XR LUMBAR PUNCTURE 10/01 1530 Report Impression - Status: SIGNED Entered: 10/01/2022 6992 IMPRESSION: 1. Technically successful fluoroscopically guided lumbar puncture. No immediate complications. 2. Opening pressure was 6. Closing pressure was less than 5. Impression By: [email or web address] - Patricio Taylor M.D. Discharge Instructions PCP PCP follow-up: PCP: No Primary or Family Physician Discharge to: Home/Self Care Additional Discharge Routines: PCP Follow-Up, Rubber Stamp Dies Inspector Follow-Up Diet: Cardiac Activity: As Tolerated Discharge management: face to face encounter, discharge time 35 minutes Follow-up Appointments PCP follow-up: PCP: Bryanna Vincent DO PCP follow up timeframe: In 5 days Special instructions: Monitor BP and adjust medications as needed Consulting provider 1: Provider 1: Brit Rao MD Specialty: Neurology Consult follow up timeframe: In 1-2 weeks Kayleigh Phipps 10/02/22 1522: Attestations Physician Attestation Agree w/findings plan: Agree with the findings and plan as documented by LUIZ Rogers; * my personal evaluation is Acute CVA in left periatrial white matter - continue DAPT, stable to dc at 1128 at 1535 RPT #: [id number] END OF REPORT [facility] 2022-10-02 08:56:00 [facility] ([facility] Neurology Progress Note REPORT#:[id number] REPORT STATUS: Signed DATE:10/02/22 TIME:0856 PATIENT: PATITO LONDONO UNIT #: [id number] ROOM/BED: [place] [address] : 57 AGE: 67 SEX: F ATTEND: Kayleigh Phipps MD ADM AUTHOR: Brit Rao MD * ALL edits or amendments must be made on the electronic/computer document * Subjective HPI: 67-year-old female with a past medical history of hypertension presents the emergency department with speech difficulties. Patient and family member at the bedside state her symptoms started this morning when she awoke around 830 this morning. Per family the patient has trouble speaking and will not answer questions appropriately and seems to have trouble finding the words to say. Patient arrives awake and alert in no acute distress. HPI somewhat limited secondary to patient's expressive aphasia. Patient denies headache, chest pain, shortness of breath, focal weakness, numbness or tingling. Family states that today the patient had complained of right earache. No recent fever, chills, cough, nausea vomiting or diarrhea. Above history per er md Per patient, no h/o stroke or tia in the past or in the family She does have occasional headaches No blurry or double vision no ataxia Review of Systems Constitutional: Denies: chills, fatigue, fever, generalized weakness, lethargy, malaise, recent wt loss, other. Skin: Denies: abrasion, bruising, contusion, diaphoresis, ecchymosis, itching, laceration, rash, swelling, other. Neuro: Denies: bladder incontinence, bowel incontinence, change in LOC, confusion, dizziness, focal weakness, gait problem, headache, lightheaded, numbness, seizure, slurred speech, spinning sensation, passed out, unable to speak, vision change, generalized weakness, other. Objective General VS: Last Documented: Result Date Time Pulse Ox 98 10/02 810 FiO2 21 10/02 810 O2 Delivery Room air 10/02 810 B/P 140/87 10/02 737 B/P Mean 0.0 10/02 737 Temp 36.8 10/02 737 Pulse 98 10/02 737 Resp 16 10/02 737 PATIENT WEIGHT: Weight (lb): Weight (oz): Weight (kg): 81.818 Medications Current Home Medications No Known Home Medications Active Meds + DC'd Last 24 Hrs Topiramate (TOPAMAX) 50 MG BID PO (UNV) Atorvastatin Calcium (LIPITOR) 80 MG BEDTIME PO Topiramate (TOPAMAX) 25 MG BID PO (DCr) Acetazolamide (DIAMOX) 250 MG TID PO (DCr) Aspirin (ECOTRIN) 81 MG DAILY PO Acetaminophen (TYLENOL) 650 MG Q4H PRN PRN PO Ondansetron HCl (ZOFRAN) 4 MG Q4H PRN PRN IV Carbamide Peroxide (DEBROX 6.5% 15 ML OTIC SOLN) 2 DROP BID RIGHT EAR Enoxaparin Sodium (lovENOX) 40 MG DAILY SUBQ Hydralazine HCl (APRESOLINE) 10 MG Q6H PRN PRN IV Albumin Human (OPTISON) 3 ML ONCE PRN IV Dietitian nutrition assessment The data set between the solid lines has been imported from the dietitian's assessment. BMI Calculated: 31.0 Nutrition related diagnosis: Nutrition diagnosis details: Nutrition problem: Nutrition etiology: Nutrition signs and symptoms: Nutrition prescription: Dietitian name: Assessment completed: Physical Exam General appearance: alert, awake, oriented Head/Eyes: atraumatic ENT: moist mucosal membranes Neck: full range of motion, non-tender, supple/no meningismus Cardiovascular: regular rate and rhythm Respiratory: aerating well Neuro comment: AAox3 CN II-XII intact speech normal Motor 5/5 in kirsty xtremities No sensory loss no ataxia gait deferred Diagnosis, Assessment Plan Problem List/A P: 1. Headache 2. Stroke Free Text A P: Acute stroke in left periatrial white matter - ESUS vs cryptogenic in nature' Also, evidence radiologically of partially empty sella, which is not consistent with IIH, as op on csf/lp is normal 6. Plan: Topamax 50 mg bid Willl stop diamox Asp 81 mg daily Lipitor 80 mg daily Lipid Panel, HbA1c MRI brain wo contrast TTE with bubble study Consider Loop Monitoring if cryptogenic stroke after above work-up Permissive HTN, do not treat BP unless > 220/110. Use PRN Labetalol DVT Prophylaxis with Lovenox 40 mg sc daily GI Prophylaxis with Protonix IV Speech Therapy Consult (if swallow bedside fails, will need corpack and initiation of tube feeds) PT/OT consult Routine care (neurochecks/vitals/I Os and cardiac monitoring) Thanks for the referral. Please call with questions. Brit Rao MD, MPH at 0857 [facility] #: [id number] END OF REPORT [facility] 2022-10-01 18:27:00 [id number] [facility] [id number] [place] [id number] PATIENT NAME: PATITO LONDONO ADMIT DATE: 10/01/22 ACCOUNT NO: [id number] ROOM NO: [facility] AGE: 67 REPORT TYPE: eECHOCARDIOGRAM REPORT SEX: F ADMITTING PHYSICIAN: Kayleigh Phipps MD ATTENDING PHYSICIAN: Kayleigh Phipps MD *[facility]* [address] [place], [place] [address] Transthoracic Echocardiogram Patient: Patito Londono Study Date: 10/01/2022 BP: 169 / 81 Location: [facility] URN: [id number] : 1955 Age: 67 Height: 64 in / 162.6 cm Gender: F Weight: 180 lb / 81.8 kg BMI/BSA: 31 kg/m 2 / 1.95 m 2 *Ordering Physician: * Gabrielle Morrissey *Interpreting Physician: * Jovon Peralta MD *Welt Slasher: * Aziza Freeman Indications: CVA. Expressive Aphasia. Study data: Transthoracic echocardiogram. Procedure: Transthoracic echocardiography was performed. Image quality was adequate. Intravenous contrast (agitated saline) was administered. Complete 2D, complete spectral Doppler, and color Doppler. Location: Emergency department. Patient status: Observation. Patient room number: ER3. Study status: Stat. Findings Left ventricle: The cavity size is normal. Wall thickness is normal. Systolic function is normal. The estimated ejection fraction is 55-59%. Wall motion is normal; there are no regional wall motion abnormalities. Doppler parameters are consistent with abnormal left ventricular relaxation (grade 1 diastolic dysfunction). PATIENT NAME: PATITO LONDONO Right ventricle: The cavity size is normal. Systolic function is normal. Left atrium: The atrium is normal in size. Right atrium: The atrium is normal in size. Atrial septum: Echo contrast study shows no shunt. Aorta: Aortic root: The aortic root is normal in size. Aortic valve: Not well visualized. There is no evidence of stenosis. Mitral valve: The valve is structurally normal. There is trivial regurgitation. Tricuspid valve: The valve is structurally normal. There is mild regurgitation. Pulmonic valve: The valve is structurally normal. There is trivial regurgitation. Pericardium: There is no pericardial effusion. Systemic veins: Inferior vena cava: The vessel is normal in size. Measurements Left ventricle Value Ref GLS, 2D -20 % --------- MIGUEL A, LAX 4.1 cm 3.8 - 5.2 ESD, LAX 2.6 cm 2.2 - 3.5 ESD/bsa, LAX 1.4 cm/m 2 1.3 - 2.1 FS, LAX 35 % 27 - 45 PW, ED 1.1 cm 0.6 - 0.9 IVS/PW, ED 1.07 --------- EF 65 % 54 - 74 IVRT 117 ms --------- E/e', avg, TDI 9 <=14 LVOT Value Ref Diam, S 1.96 cm --------- Area 3.0 cm 2 --------- Peak tejal, S 1.19 m/sec --------- Mean tejal, S 0.91 m/sec --------- VTI, S 24.5 cm --------- Peak grad, S 6 mm Hg --------- Mean grad, S 4 mm Hg --------- SV 74 ml --------- SV/bsa 38 ml/m 2 --------- Ventricular septum Value Ref IVS, ED 1.1 cm 0.6 - 0.9 Right ventricle Value Ref Pressure, S 37 mm Hg --------- Left atrium Value Ref Vol/bsa, ES, 1-p A4C 27 ml/m 2 11 - 40 Vol/bsa, ES, A/L 28 ml/m 2 16 - 34 AP dim, ES MM 3.2 cm 2.7 - 3.8 LA/Ao root ratio, MM 1.08 --------- PATIENT NAME: PATITO LONDONO Aortic valve Value Ref Leaflet sep, MM 1.76 cm --------- Peak v, S 1.56 m/sec --------- Mean v, S 1.18 m/sec --------- VTI, S 30.6 cm --------- Mean grad, S 5.9 mm Hg --------- Peak grad, S 9.7 mm Hg --------- LVOT/AV, VTI ratio 0.8 --------- YAZMIN, VTI 2.43 cm 2 --------- LVOT/AV, Vpeak ratio 0.76 --------- YAZMIN, Vmax 2.31 cm 2 --------- Mitral valve Value Ref Peak E 0.76 m/sec --------- Peak A 1.05 m/sec --------- Decel time 194 ms --------- PHT 49 ms --------- Peak grad, D 2.3 mm Hg --------- Peak E/A ratio 0.72 --------- MVA, PHT 4.5 cm 2 --------- Pulmonic valve Value Ref MT peak v 1.13 m/sec --------- MT peak grad 5 mm Hg --------- Tricuspid valve Value Ref TR peak v 2.81 m/sec <=2.8 Peak RV-RA grad, S 32 mm Hg --------- Aortic root Value Ref Root diam, ED MM 3.00 cm --------- Pulmonary artery Value Ref Pressure, S 31.2 mm Hg --------- Systemic veins Value Ref Estimated CVP 5 mm Hg --------- Pulmonary veins Value Ref A rev duration 94 ms --------- Conclusions Summary: 1. Left ventricle: Systolic function is normal. The estimated ejection fraction is 55-59%. Wall motion is normal; there are no regional wall motion abnormalities. 2. Pericardium, extracardiac: There is no pericardial effusion. Prepared and electronically signed by PATIENT NAME: PATITO LONDONO Jovon Peralta MD 10/01/2022 18:27 at 1827 PATIENT NAME: PATITO LONDONO [facility] 2022-10-01 11:35:00 [facility] ([facility] Hospitalist Progress Note REPORT#:[id number] REPORT STATUS: Signed DATE:10/01/22 TIME:1135 PATIENT: PATITO LONDONO UNIT #: [id number] ROOM/BED: [place] [address] : 57 AGE: 67 SEX: F ATTEND: Kayleigh Phipps MD ADM AUTHOR: Sue Wills * ALL edits or amendments must be made on the electronic/computer document * Sue Wills 10/01/22 1135: Subjective Chief complaint: Expressive aphasia, confusion HPI: no acute events overnight pt still having some mild expressive aphasia, denies any REYES, dizziness, or visual changes MRI findings noted acute CVA and evidence of IIH, Neurology consulted with plan for IR-guided LP Review of Systems Constitutional: Denies: fever. Respiratory: Denies: SOB. Cardiovascular: Denies: chest pain. Neuro: Reports: other (aphasia). Denies: focal weakness, headache, weakness. Objective General VS/I O: Vital Signs: Date Time Temp Pulse Resp B/P B/P Pulse O2 O2 Flow FiO2 Mean Ox Delivery Rate 10/01 0824 98.6 76 18 141/68 92 96 Room air 10/01 0716 93 Room air 10/01 0400 98.4 72 18 169/81 110 95 10/01 0057 98.0 75 18 140/72 94 100 Room air 09/30 2250 100 09/30 2220 98.7 90 18 177/96 123 97 Room air 24 hour I O ending at 0700: 10/01 0700 09/30 1900 Intake Total Output Total Balance Patient 81.818 kg Weight Weight Estimated Measurement Method PATIENT WEIGHT: Weight (lb): Weight (oz): Weight (kg): 81.818 Medications: Active Meds + DC'd Last 24 Hrs Topiramate (TOPAMAX) 25 MG BID PO Acetazolamide (DIAMOX) 250 MG TID PO Carbamide Peroxide (DEBROX 6.5% 15 ML OTIC SOLN) 2 DROP BID RIGHT EAR Enoxaparin Sodium (lovENOX) 40 MG DAILY SUBQ Hydralazine HCl (APRESOLINE) 10 MG Q6H PRN PRN IV Albumin Human (OPTISON) 3 ML ONCE PRN IV Sodium Chloride (SODIUM CHLORIDE 0.9%) 100 ML .STK-MED ONE IV (DC) Iopamidol (ISOVUE-370) 0 .STK-MED ONE .ROUTE (DC) Physical Exam General appearance: alert, awake, no acute distress Head/Eyes: atraumatic, normocephalic, PERRL ENT: moist mucosal membranes, normal dentition Cardiovascular: normal heart sounds, regular rate rhythm Respiratory: symmetric expansion, no distress Abdomen: non-tender, soft, no guarding, no mass/organomegaly, no rebound Extremities: moves all, no edema Neuro/LAMP SHADE ASSEMBLER: alert, oriented X 3, CNII-XII intact, no motor deficits, no sensory deficits, mild expressive aphasia Lymphatics: neck normal, no lymphadenopathy Results Findings/Data: Laboratory Tests 10/0118 2240 2229 Chemistry Sodium (134 - 147 mmol/L) 140 Potassium (3.4 - 5.0 mmol/L) 3.7 Chloride (100 - 108 mmol/L) 107 Carbon Dioxide (21 - 32 mmol/L) 26 Anion Gap (4.0 - 15.0 GAP calc) 7.0 BUN (7 - 18 MG/DL) 19 H Creatinine (0.6 - 1.0 MG/DL) 0.7 Glomerular Filtr Rate (>60 estGFR) >=60 max estimate Glucose (70 - 110 MG/DL) 119 H POC Glucose (70 - 110 mg/dL) 128 H 128 H Calcium (8.5 - 10.1 MG/DL) 10.0 Troponin I High Sens (0 - 34 ng/L) 3.8 Laboratory Tests 09/300 Coagulation INR (0.8 - 1.2 INR Unit) 0.95 PTT ([place]) (26 - 35 SECONDS) 38.5 H PT Patient/Control Mix (9.3 - 12.9 SECONDS) 10.8 Laboratory Tests 09/30 2240 Hematology WBC (3.5 - 11.0 K/mm3) 10.4 RBC (4.70 - 6.10 M/mm3) 4.91 Hgb (10.4 - 14.9 G/DL) 15.2 H Hct (31.5 - 44.1 %) 44.2 H MCV (84.5 - 98.6 Fl) 90.0 MCH (27.0 - 34.2 pg) 31.0 MCHC (31.5 - 34.0 G/DL) 34.4 H RDW (11.5 - 14.5 SD) 12.6 Plt Count (150 - 450 K/mm3) 315 MPV (7.0 - 10.5 fL) 8.90 Neut % (Auto) (40 - 76 %) 61.2 Lymph % (Auto) (20.5 - 51.1 %) 26.4 [place] % (Auto) (1.7 - 9.3 %) 9.8 H Eos % (Auto) (0.0 - 6.0 %) 1.4 Baso % (Auto) (0.0 - 2.0 %) 0.9 Neut # (Auto) (1.8 - 7.6 K/mm3) 6.3 Lymph # (Auto) (0.6 - 3.2 K/mm3) 2.7 [place] # (Auto) (0.3 - 1.1 K/mm3) 1.0 Eos # (Auto) (0.0 - 0.4 K/mm3) 0.2 Baso # (Auto) (0.0 - 0.1 K/mm3) 0.1 Abs Immat Gran (auto) (0.00 - 0.03 x10 3/uL) 0.03 Add Manual Diff (CRITERIA DIFF/SCN) NO Immature Gran % (0.0 - 5.0 %) 0.3 Nucleated RBC % (0.0 - 1.0 /100WBC%) 0.0 Laboratory Tests 09/30 2342 Serology SARS-CoV-2 Ag (Rapid) (Negative) NEGATIVE Laboratory Tests 09/30 2230 Urines Urine Color (YEL/STRAW discript) YELLOW Urine Appearance (CLEAR discript) CLEAR Urine pH (5.0 - 7.0 pH UNITS) 6.0 Ur Specific [place] (1.005 - 1.030 SG) 1.015 Urine Protein (NEG mg/dL) NEGATIVE Urine Glucose (UA) (NEG mg/dL) NEGATIVE Urine Ketones (NEG mg/dL) NEGATIVE Urine Blood (NEG mg/DL) 1+ H Urine Nitrite (NEG SCREEN) NEGATIVE Urine Bilirubin (NEG mg/dL) NEGATIVE Urine Urobilinogen (<2.0 mg/dL) 0.2 Ur Leukocyte Esterase (NEGATIVE Leuk/mcL) NEGATIVE Urine RBC (0 - 3 #RBC/HPF) 0-1 Urine Culture Screen (Culture CHK Criteria) NO, WBC<10 Radiology data: Recent Impressions: CAT SCAN - CT HEAD/BRAIN W/O CONT 09/30 2231 Report Impression - Status: SIGNED Entered: 09/30/20222241 IMPRESSION: 1. No acute calvarial fracture, intracranial hemorrhage, infarct, or mass. 2. Age-related atrophy and chronic small vessel ischemic injuries. Impression By: Niesha - Naima Lizama MD RADIOLOGY - XR CHEST 1 V 09/30 2240 Report Impression - Status: SIGNED Entered: 09/30/20222251 IMPRESSION: No acute radiographic abnormality Impression By: [email or web address] Jenni Armstrong M.D. CAT SCAN - CT ANGIO NECK 09/30 2240 Report Impression - Status: SIGNED Entered: 09/30/20222303 IMPRESSION: 1. No intracranial large vessel occlusion. No significant stenosis. No aneurysmal dilatation or vascular malformation. 2. Slight are aerated distal cerebral arteries may indicate underlying vasculopathy. 3. No stenosis, occlusion or dissection of the common or internal carotid arteries or vertebral arteries. Impression By: Naveen Carrillo M.D. CAT SCAN - CT ANGIO HEAD 09/30 2240 Report Impression - Status: SIGNED Entered: 09/30/20222303 IMPRESSION: 1. No intracranial large vessel occlusion. No significant stenosis. No aneurysmal dilatation or vascular malformation. 2. Slight are aerated distal cerebral arteries may indicate underlying vasculopathy. 3. No stenosis, occlusion or dissection of the common or internal carotid arteries or vertebral arteries. Impression By: Naveen Carrillo M.D. [facility] IMAGING - MRI BRAIN W/O CONTRAST 10/01 0736 Report Impression - Status: SIGNED Entered: 10/01/2022 0842 IMPRESSION: Few foci of restricted diffusion in [...] findings are suspicious for idiopathic intracranial hypertension. Impression By: Jimmy Huang M.D. Diagnosis, Assessment Plan Free Text DxA P Notes Free text DxA P notes: Acute CVA in left periatrial white matter - MRI brain showed few foci of restricted diffusion in left periatrial white matter 2/2 acute ischemia - monitor under continuous telemetry - serial neuro exams - start daily ASA, statin - check lipid panel, HgbA1c - check echocardiogram - PT/OT/ST eval - Neurology following, appreciate recs Probable idiopathic intracranial hypertension - MRI brain with findings suggestive of IIH - Neurology following, agree with diagnostic LP - IR consulted for LP, requested opening and closing pressures, will also send CSF studies - start on Tomapax and Diamox per Neuro Hypertension - will allow for permissive HTN in setting of acute CVA - start on loop diuretic tomorrow DVT prophylaxis with Lovenox Full code Kayleigh Phipps 10/01/22 1333: Attestations Physician Attestation Agree w/findings plan: Agree with the findings and plan as documented by TRADE SHOW SPECIALIST; * my personal evaluation is CVA, PT/OT, Neuro, Antiplatelet at 1145 at 1337 RPT #: [id number] END OF REPORT [facility] 2022-10-01 10:00:00 [facility]) Neurology Consultation Note REPORT#:[id number] REPORT STATUS: Signed DATE:10/01/22 TIME:1000 PATIENT: PATITO LONDONO UNIT #: [id number] ROOM/BED: [place] [address] : 57 AGE: 67 SEX: F ATTEND: Kayleigh Phipps MD ADM AUTHOR: Brit Rao MD * ALL edits or amendments must be made on the electronic/computer document * History of Present Illness HPI Requesting clinician: Er MD Reason for consult: weakness/speech difficulty HPI: 67-year-old female with a past medical history of hypertension presents the emergency department with speech difficulties. Patient and family member at the bedside state her symptoms started this morning when she awoke around 830 this morning. Per family the patient has trouble speaking and will not answer questions appropriately and seems to have trouble finding the words to say. Patient arrives awake and alert in no acute distress. HPI somewhat limited secondary to patient's expressive aphasia. Patient denies headache, chest pain, shortness of breath, focal weakness, numbness or tingling. Family states that today the patient had complained of right earache. No recent fever, chills, cough, nausea vomiting or diarrhea. Above history per er md Per patient, no h/o stroke or tia in the past or in the family She does have occasional headaches No blurry or double vision no ataxia History - Adult longitudinal Past medical history: Reports: Hypertension. Additional surgical history: None Family history: Reports: Cancer, Diabetes, Heart disease. Denies: Stroke/TIA. Alcohol use: Denies EtOH use Drug use: Denies recreational drugs Smoking status for patients 13 years old or older: Never Smoker Allergies: Coded Allergies: morphine (UNKNOWN 09/30/22) Review of Systems Constitutional: Denies: chills, fatigue, fever, generalized weakness, lethargy, malaise, recent wt loss, other. Skin: Denies: abrasion, bruising, contusion, diaphoresis, ecchymosis, itching, laceration, rash, swelling, other. Allergy/Immun: Denies: allergic reaction, anaphylaxis, hives, itching, rhinorrhea, sneezing, other. Eyes: Denies: redness, discharge, visual loss/blurred, itching, diplopia, eye pain, photophobia, swelling, other. Respiratory: Denies: ESTES (dyspnea on exertion), hemoptysis, non productive cough, parox nocturnal dyspnea, pleurisy, pleuritic pain, pneumonia, productive cough (sputum ), SOB, wheezing, other. Cardiovascular: Denies: chest pain, ESTES (dyspnea on exertion), edema, orthopnea, palpitations, parox nocturnal dyspnea, other. Neuro: Denies: bladder incontinence, bowel incontinence, change in LOC, confusion, dizziness, focal weakness, gait problem, headache, lightheaded, numbness, seizure, slurred speech, spinning sensation, passed out, unable to speak, vision change, generalized weakness, other. Psych: Denies: agitation, anxiety, auditory hallucination, change in mental status, confusion, delusional, depression, homicidal ideation, hostile, insomnia, stress , suicidal ideation, visual hallucination, other. Objective General VS: Last Documented: Result Date Time Pulse Ox 96 10/01 824 B/P 141/68 10/01 824 B/P Mean 92 10/01 824 O2 Delivery Room air 10/01 824 Temp 37.0 10/01 824 Pulse 76 10/01 824 Resp 18 10/01 824 PATIENT WEIGHT: Weight (lb): Weight (oz): Weight (kg): 81.818 Medications Current Home Medications No Known Home Medications Active Meds + DC'd Last 24 Hrs Enoxaparin Sodium (lovENOX) 40 MG DAILY SUBQ Hydralazine HCl (APRESOLINE) 10 MG Q6H PRN PRN IV Albumin Human (OPTISON) 3 ML ONCE PRN IV Sodium Chloride (SODIUM CHLORIDE 0.9%) 100 ML .STK-MED ONE IV (DC) Iopamidol (ISOVUE-370) 0 .STK-MED ONE .ROUTE (DC) Dietitian nutrition assessment The data set between the solid lines has been imported from the dietitian's assessment. BMI Calculated: 31.0 Nutrition related diagnosis: Nutrition diagnosis details: Nutrition problem: Nutrition etiology: Nutrition signs and symptoms: Nutrition prescription: Dietitian name: Assessment completed: Physical Exam General appearance: alert, awake, oriented Head/Eyes: atraumatic ENT: moist mucosal membranes Neck: full range of motion, non-tender, supple/no meningismus Cardiovascular: regular rate and rhythm Respiratory: aerating well Neuro comment: AAox3 CN II-XII intact speech normal Motor 5/5 in kirsty xtremities No sensory loss no ataxia gait deferred Diagnosis, Assessment Plan Problem List/A P: 1. Headache 2. Stroke 3. Increased intracranial pressure Free Text DxA P Notes Free text DxA P notes: Acute stroke in left periatrial white matter - ESUS vs cryptogenic in nature' Also, evidence radiologically of iih with partially empty sella Plan: LP with csf studies, primarily to look for opening pressure, please ensure to note this on spinal tap. need opening and closing pressure. Needs iR consult to remove atleast 40 cc of csf Topamax 25 mg bid for now Diamox 250 mg tid for now Asp 81 mg daily Lipitor 80 mg daily Lipid Panel, HbA1c MRI brain wo contrast TTE with bubble study Consider Loop Monitoring if cryptogenic stroke after above work-up Permissive HTN, do not treat BP unless > 220/110. Use PRN Labetalol DVT Prophylaxis with Lovenox 40 mg sc daily GI Prophylaxis with Protonix IV Speech Therapy Consult (if swallow bedside fails, will need corpack and initiation of tube feeds) PT/OT consult Routine care (neurochecks/vitals/I Os and cardiac monitoring) Thanks for the referral. Please call with questions. Brit Rao MD, MPH at 1004 RPT #: [id number] END OF REPORT [facility] 2022-10-01 01:40:00 [facility] ([facility]) Hospitalist History Physical REPORT#:[id number] REPORT STATUS: Signed DATE:10/01/22 TIME:0140 PATIENT: PATITO LONDONO UNIT #: [id number] ROOM/BED: [place] [id number] : [birth year] AGE: 67 SEX: F ATTEND: Kayleigh Phipps MD ADM AUTHOR: Gabrielle Morrissey * ALL edits or amendments must be made on the electronic/computer document * Gabrielle Morrissey 10/01/22 0140: History of Present Illness HPI Chief complaint: Expressive aphasia, confusion PCP: PCP: No Primary or Family Physician HPI: 67-year-old female with PMHx of hypertension is admitted with acute CVA. Patient presented to the ED with complaints of expressive aphasia and confusion. Per family sister at bedside and patient state that patient woke up at 8 AM and was unable to find words also had abdominal pain. She visited [facility] in [place] where all workups including head CT showed normal findings. She was told to have possible UTI but no antibiotics were given. After discharged home, patient continued to have feeling of difficulty in finding words, feeling of something different, so decided to come to the ED. E wokrups of negative findings for stenosis or acute chagnes in the head CT and head CTA here. Unremarkable lab findings. Patient is alert, oriented x4, normal speech or trace slow in finding words occasionally, no facial droop, no motor weakness or sensory changes on presentation. NIHSS 0. No tPTA started. Vitals are stable. Denies fever/chills, dizziness, chest pain, shortness of breath, abdominal pain or nausea vomiting. Patient is admitted for acute CVA evaluation and management. History Past medical history: Reports: Hypertension. Additional surgical history: None Family history: Reports: Cancer, Diabetes, Heart disease. Denies: Stroke/TIA. Alcohol use: Denies EtOH use Drug use: Denies recreational drugs Smoking status for patients 13 years old or older: Never Smoker Medication/Allergy-Vaccine Hx Medications: Home Medications: Medication Dose/Rte/Freq Days Qty Entered Last Max Daily Dose Reviewed No Known Home Medications Current Hospital Medications: Diagnostic Agents Sig/Fuentes Start time Last Medication Dose Route Stop Time Status Admin Iopamidol 0 .STK-MED ONE 09/30 2221 DC 09/30 (ISOVUE-370) .ROUTE 2319 Electrolytic, Caloric, And Shelbi Sig/Fuentes Start time Last Medication Dose Route Stop Time Status Admin Sodium Chloride 100 ML .STK-MED ONE 09/300 DC 09/30 (SODIUM CHLORIDE IV 09/30 2321 2320 0.9%) Allergies: Coded Allergies: morphine (UNKNOWN 09/30/22) Review of Systems Constitutional: Denies: chills, fatigue, fever, generalized weakness, lethargy, malaise, recent wt loss. Skin: Denies: rash, swelling. Allergy/Immun: Denies: allergic reaction. Eyes: Denies: visual loss/blurred. ENT: Denies: sore throat. Respiratory: Denies: ESTES (dyspnea on exertion), non productive cough, pleuritic pain, pneumonia, SOB, wheezing. Cardiovascular: Denies: chest pain, ESTES (dyspnea on exertion), edema, orthopnea. GI: Denies: abdominal pain, nausea, vomiting. : Denies: dysuria, flank pain. Musculoskeletal: Extremity pain: Denies: left upper, left lower, right upper, right lower. Extremity swelling: Denies: left upper, left lower, right upper, right lower. Heme: Denies: adenopathy. Endocrine: Denies: cold intolerance, heat intolerance. Neuro: Reports: confusion. Denies: dizziness, headache, numbness, seizure, slurred speech, spinning sensation, syncope, unable to speak, vision change, weakness. Psych: Denies: anxiety. Objective General VS/I O: Vital Signs: Date Time Temp Pulse Resp B/P B/P Pulse O2 O2 Flow FiO2 Mean Ox Delivery Rate 10/01 57 36.7 75 18 140/72 94 100 Room air 09/30 2250 100 09/30 2220 37.1 90 18 177/96 123 97 Room air 24 hour I O ending at 0700: 10/01 0700 09/30 1900 Intake Total Output Total Balance Patient 81.818 kg Weight Weight Estimated Measurement Method PATIENT WEIGHT: Weight (lb): Weight (oz): Weight (kg): 81.818 Medications: Active Meds + DC'd Last 24 Hrs Sodium Chloride (SODIUM CHLORIDE 0.9%) 100 ML .STK-MED ONE IV (DC) Iopamidol (ISOVUE-370) 0 .STK-MED ONE .ROUTE (DC) Physical Exam General appearance: alert, awake, oriented, no acute distress, mental status normal, no respiratory distress Head/Eyes: atraumatic, EOMI, normal conjunctiva/sclera, normal eyelids/periorb., normocephalic, PERRL ENT: moist mucosal membranes Neck: full range of motion, non-tender, normal thyroid, supple/no meningismus, no bruit/NL carotids, no JVD, no masses or swelling Cardiovascular: normal capillary refill, normal heart sounds, regular rate rhythm, no ectopy, no gallop Respiratory: aerating well, clear to auscultation, symmetric expansion, no distress Abdomen: non-tender, normal bowel sounds, soft, no distention, no guarding, no mass/organomegaly, no rebound Genitourinary: no flank pain Extremities: moves all, normal capillary refill, normal range of motion, no cyanosis, no edema Musculoskeletal: normal inspection, no muscle spasm Neuro/LAMP SHADE ASSEMBLER: alert, oriented X 3, CNII-XII intact, normal speech, reflexes equal bilat, no motor deficits, no sensory deficits Lymphatics: neck normal, no lymphadenopathy Psychiatry: normal affect, normal judgment/insight Results Findings/Data: Laboratory Tests 09/30 09/30 2240 2229 Chemistry Sodium (134 - 147 mmol/L) 140 Potassium (3.4 - 5.0 mmol/L) 3.7 Chloride (100 - 108 mmol/L) 107 Carbon Dioxide (21 - 32 mmol/L) 26 Anion Gap (4.0 - 15.0 GAP calc) 7.0 BUN (7 - 18 MG/DL) 19 H Creatinine (0.6 - 1.0 MG/DL) 0.7 Glomerular Filtr Rate (>60 estGFR) >=60 max estimate Glucose (70 - 110 MG/DL) 119 H POC Glucose (70 - 110 mg/dL) 128 H Calcium (8.5 - 10.1 MG/DL) 10.0 Troponin I High Sens (0 - 34 ng/L) 3.8 Laboratory Tests 09/30 2240 Coagulation INR (0.8 - 1.2 INR Unit) 0.95 PTT ([place]) (26 - 35 SECONDS) 38.5 H PT Patient/Control Mix (9.3 - 12.9 SECONDS) 10.8 Laboratory Tests 09/30 2240 Hematology WBC (3.5 - 11.0 K/mm3) 10.4 RBC (4.70 - 6.10 M/mm3) 4.91 Hgb (10.4 - 14.9 G/DL) 15.2 H Hct (31.5 - 44.1 %) 44.2 H MCV (84.5 - 98.6 Fl) 90.0 MCH (27.0 - 34.2 pg) 31.0 MCHC (31.5 - 34.0 G/DL) 34.4 H RDW (11.5 - 14.5 SD) 12.6 Plt Count (150 - 450 K/mm3) 315 MPV (7.0 - 10.5 fL) 8.90 Neut % (Auto) (40 - 76 %) 61.2 Lymph % (Auto) (20.5 - 51.1 %) 26.4 [place] % (Auto) (1.7 - 9.3 %) 9.8 H Eos % (Auto) (0.0 - 6.0 %) 1.4 Baso % (Auto) (0.0 - 2.0 %) 0.9 Neut # (Auto) (1.8 - 7.6 K/mm3) 6.3 Lymph # (Auto) (0.6 - 3.2 K/mm3) 2.7 [place] # (Auto) (0.3 - 1.1 K/mm3) 1.0 Eos # (Auto) (0.0 - 0.4 K/mm3) 0.2 Baso # (Auto) (0.0 - 0.1 K/mm3) 0.1 Abs Immat Gran (auto) (0.00 - 0.03 x10 3/uL) 0.03 Add Manual Diff (CRITERIA DIFF/SCN) NO Immature Gran % (0.0 - 5.0 %) 0.3 Nucleated RBC % (0.0 - 1.0 /100WBC%) 0.0 Laboratory Tests 09/30 2342 Serology SARS-CoV-2 Ag (Rapid) (Negative) NEGATIVE Laboratory Tests 09/30 2230 Urines Urine Color (YEL/STRAW discript) YELLOW Urine Appearance (CLEAR discript) CLEAR Urine pH (5.0 - 7.0 pH UNITS) 6.0 Ur Specific [place] (1.005 - 1.030 SG) 1.015 Urine Protein (NEG mg/dL) NEGATIVE Urine Glucose (UA) (NEG mg/dL) NEGATIVE Urine Ketones (NEG mg/dL) NEGATIVE Urine Blood (NEG mg/DL) 1+ H Urine Nitrite (NEG SCREEN) NEGATIVE Urine Bilirubin (NEG mg/dL) NEGATIVE Urine Urobilinogen (<2.0 mg/dL) 0.2 Ur Leukocyte Esterase (NEGATIVE Leuk/mcL) NEGATIVE Urine RBC (0 - 3 #RBC/HPF) 0-1 Urine Culture Screen (Culture CHK Criteria) NO, WBC<10 Radiology data: Recent Impressions: CAT SCAN - CT HEAD/BRAIN W/O CONT 09/30 2231 Report Impression - Status: SIGNED Entered: 09/30/20222241 IMPRESSION: 1. No acute calvarial fracture, intracranial hemorrhage, infarct, or mass. 2. Age-related atrophy and chronic small vessel ischemic injuries. Impression By: Niesha - Naima Lizama MD RADIOLOGY - XR CHEST 1 V 09/30 2240 Report Impression - Status: SIGNED Entered: 09/30/20222251 IMPRESSION: No acute radiographic abnormality Impression By: [email or web address] - Deanna Armstrong M.D. CAT SCAN - CT ANGIO NECK 09/30 2240 Report Impression - Status: SIGNED Entered: 09/30/2022 2304 IMPRESSION: 1. No intracranial large vessel occlusion. No significant stenosis. No aneurysmal dilatation or vascular malformation. 2. Slight are aerated distal cerebral arteries may indicate underlying vasculopathy. 3. No stenosis, occlusion or dissection of the common or internal carotid arteries or vertebral arteries. Impression By: Naveen Carrillo M.D. CAT SCAN - CT ANGIO HEAD 09/30 2240 Report Impression - Status: SIGNED Entered: 09/30/20222303 IMPRESSION: 1. No intracranial large vessel occlusion. No significant stenosis. No aneurysmal dilatation or vascular malformation. 2. Slight are aerated distal cerebral arteries may indicate underlying vasculopathy. 3. No stenosis, occlusion or dissection of the common or internal carotid arteries or vertebral arteries. Impression By: Naveen Carrillo M.D. Diagnosis, Assessment Plan Free Text DxA P Notes Free Text DxA P Notes: 1. CVA (cerebral vascular accident) to rule out Not started tPA completed head CT, CTA with unremarkable findings Brain MRI pending Echocardiogram pending EKG NSR check neuro vitals/ NIHSS Monitor on the telemetry PT/OT/speech therapy eval and treatment Pending lipid panel, hemoglobin A1c for risk assessment 2. Expressive aphasia subtle on presentation stroke eval as above #1 3. Hypertension PRN hydralazine VTE ppx: Lovenox SC Full code; patient initially wanted to DNR/DNI then answered "I don't know" when questioned again. Code status can be re-assessed later when patient is back to her normal mental status. Kayleigh Phipps 10/01/22 1332: Attestations Physician Attestation Agree w/findings plan: Agree with the findings and plan as documented by TRADE SHOW SPECIALIST; * my personal evaluation is CVA, MRI pending at 0220 at 1339 RPT #: [id number] END OF REPORT [facility] 2022-09-30 22:41:00 [facility] ([facility]) EMERGENCY PROVIDER REPORT REPORT#:[id number] REPORT STATUS: Signed DATE:09/30/22 TIME:2240 PATIENT: PATITO LONDONO UNIT #: [id number] ROOM/BED: [place] : 57 AGE: 67 SEX: F PCP PHYS: No Primary or Family Physician SERVICE AUTHOR: Jaquan Dsouza MD * ALL edits or amendments must be made on the electronic/computer document * HPI-Stroke/CVA Free Text HPI Notes Free Text HPI Notes 67-year-old female with a past medical history of hypertension presents the emergency department with speech difficulties. Patient and family member at the bedside state her symptoms started this morning when she awoke around 830 this morning. Per family the patient has trouble speaking and will not answer questions appropriately and seems to have trouble finding the words to say. Patient arrives awake and alert in no acute distress. HPI somewhat limited secondary to patient's expressive aphasia. Patient denies headache, chest pain, shortness of breath, focal weakness, numbness or tingling. Family states that today the patient had complained of right earache. No recent fever, chills, cough, nausea vomiting or diarrhea. General Initial Greet Date/Time 09/30/222100 Presentation Chief Complaint: Other Speech, unable )( Last Known Well )( Time 0830 Date 09/30/22 Hx Obtained From Patient, Family Sudden in Onset? No )( Progression since Onset Waxes and wanes Medications Prior to Arrival Medications/treatments prior to arrival: None Risk-Stroke/CVA Risk Stratification )( Initial NIH Stroke Scale )( Initial NIH Stroke Scale Response Value NIHSS Applicable? Yes 0 Level of Consciousness Alert and responsive (0) 0 Ask Month Age 1 question right (1) 1 Blink Eyes/Squeeze Hands Performs 1 task (1) 1 Horizontal EOM NL side/side eye mvmt (0) 0 Visual Catalan No visual loss (0) 0 Facial Palsy Normal symmetry (0) 0 Right Arm Motor Drift (10s) No drift 10 sec (0) 0 Left Arm Motor Drift (10s) No drift 10 sec (0) 0 Right Leg Motor Drift (5s) No drift 5 sec (0) 0 Left Leg Motor Drift (5s) No drift 5 sec (0) 0 Limb Ataxia FNF/Heel-[place] No ataxia (0) 0 Sensation (Arms/Legs/Face) No sensory loss (0) 0 Language Aphasia Severe, fragmented (2) 2 Dysarthria No dysarthria (0) 0 Total 4 NIH Stroke Score Timing Time 2219 Date 09/30/22 Review of Systems ROS Statements All systems rev neg except as marked. Focused Review of Systems Constitutional Denies: Chills, Fever. Eyes Denies: Diplopia, Eye pain bilat, Redness bilat, Visual loss bilat. Ears/Nose/Throat Denies: Sore throat, Throat pain. Respiratory Denies: Cough, non-productive, Cough, productive, Shortness of breath. Cardiovascular Denies: Chest pain, Syncope. GI Denies: Abdominal pain, Diarrhea, Nausea, Vomiting. Musculoskeletal Denies: Back pain, Extremity pain. Skin Denies: Diaphoresis, Rash. Neurologic Reports: Unable to speak. Denies: Confusion, Focal weakness, Generalized weakness, Headache, Slurred speech, Vision change. Psychiatric Denies: Anxiety, Depression. PMH-Stroke/CVA Stated Complaint ABDOMINAL PAIN, R EAR PAIN/CONFUSION Allergies Coded Allergies: morphine (UNKNOWN 09/30/22) Home Medications Reported Medications ASPIRIN 81 MG PO DAILY Past Medical History: Reports: Hypertension. Additional Surgical History None Drug Use Denies recreational drugs Smoking status for patients 13 years old or older: Unknown,if ever smoked Physical Exam Vital Signs Vital Signs First Documented: Result Date Time Pulse Ox 97 09/30 2220 B/P 177/96 09/30 2220 B/P Mean 123 09/30 2220 O2 Delivery Room air 09/30 2220 Temp 37.1 09/30 2220 Pulse 90 09/30 2220 Resp 18 09/30 2220 Last Documented: Result Date Time Pulse Ox 100 10/01 57 B/P 140/72 10/01 57 B/P Mean 94 10/01 57 O2 Delivery Room air 10/01 57 Temp 36.7 10/01 57 Pulse 75 10/01 57 Resp 18 10/01 57 Review of Vital Signs Reviewed Focused PE General/Const General/Const Awake, Alert, No acute distress, Well appearing, Well developed , Well hydrated, Well nourished, Cooperative, Not toxic appearing MS Head Head Atraumatic, Normocephalic Eyes Eyes PERRL, EOMI Ears/Nose/Throat Ears/Nose/Throat Airway patent, Mucous membranes moist, Pharynx NL MS Neck Neck Supple, Full range of motion, No swelling, Non-tender, No carotid bruit Resp/Chest Respiratory/Chest Breath sounds NL, Breath sounds = bilat, No respiratory distress, No rales, No rhonchi, No wheezing Cardiovascular Cardiovascular Heart rate NL, Regular rhythm, Heart sounds NL, No murmurs, Peripheral circulation NL Abdomen/GI Abdomen/GI Soft, Non-tender, No guarding, No rebound MS Upper Extrem Upper Extremity/MS Inspection NL, No swelling, Non-tender MS Lower Extrem Lower Ext/Pelvis/MS Inspection NL, No swelling, Non-tender, No erythema, No deformity, Neurologic intact, Vascular intact, No edema Skin Skin Color NL, Warm, Dry, Turgor NL Neurologic Neurologic Oriented X3, No motor deficits, No sensory deficits, CN II - XII intact, Reflexes equal bilat, Cerebellar NL Text/Dict Notes Patient exhibits expressive aphasia and seems to have difficulty understanding verbal commands. Psychiatric Psychiatric Affect NL, Mood NL, Cognitive function NL, Thought content NL Interpretation Diagnostics Lab Results Interpretation Results Laboratory Tests 09/30/22 2240: [Embedded Image Not Available] Laboratory Tests: 09/30 09/30 2342 2240 Chemistry Sodium (134 - 147 mmol/L) 140 Potassium (3.4 - 5.0 mmol/L) 3.7 Chloride (100 - 108 mmol/L) 107 Carbon Dioxide (21 - 32 mmol/L) 26 Anion Gap (4.0 - 15.0 GAP calc) 7.0 BUN (7 - 18 MG/DL) 19 H Creatinine (0.6 - 1.0 MG/DL) 0.7 Glomerular Filtr Rate (>60 estGFR) >=60 max estimate Glucose (70 - 110 MG/DL) 119 H Calcium (8.5 - 10.1 MG/DL) 10.0 Troponin I High Sens (0 - 34 ng/L) 3.8 Coagulation INR (0.8 - 1.2 INR Unit) 0.95 PTT (Bob) (26 - 35 SECONDS) 38.5 H PT Patient/Control Mix (9.3 - 12.9 SECONDS) 10.8 Hematology WBC (3.5 - 11.0 K/mm3) 10.4 RBC (4.70 - 6.10 M/mm3) 4.91 Hgb (10.4 - 14.9 G/DL) 15.2 H Hct (31.5 - 44.1 %) 44.2 H MCV (84.5 - 98.6 Fl) 90.0 MCH (27.0 - 34.2 pg) 31.0 MCHC (31.5 - 34.0 G/DL) 34.4 H RDW (11.5 - 14.5 SD) 12.6 Plt Count (150 - 450 K/mm3) 315 MPV (7.0 - 10.5 fL) 8.90 Neut % (Auto) (40 - 76 %) 61.2 Lymph % (Auto) (20.5 - 51.1 %) 26.4 [place] % (Auto) (1.7 - 9.3 %) 9.8 H Eos % (Auto) (0.0 - 6.0 %) 1.4 Baso % (Auto) (0.0 - 2.0 %) 0.9 Neut # (Auto) (1.8 - 7.6 K/mm3) 6.3 Lymph # (Auto) (0.6 - 3.2 K/mm3) 2.7 [place] # (Auto) (0.3 - 1.1 K/mm3) 1.0 Eos # (Auto) (0.0 - 0.4 K/mm3) 0.2 Baso # (Auto) (0.0 - 0.1 K/mm3) 0.1 Abs Immat Gran (auto) (0.00 - 0.03 x10 3/uL) 0.03 Add Manual Diff (CRITERIA DIFF/SCN) NO Immature Gran % (0.0 - 5.0 %) 0.3 Nucleated RBC % (0.0 - 1.0 /100WBC%) 0.0 Serology SARS-CoV-2 Ag (Rapid) (Negative) NEGATIVE 09/30 2229 Chemistry POC Glucose (70 - 110 mg/dL) 128 H Urines Urine Color (YEL/STRAW discript) YELLOW Urine Appearance (CLEAR discript) CLEAR Urine pH (5.0 - 7.0 pH UNITS) 6.0 Ur Specific [place] (1.005 - 1.030 SG) 1.015 Urine Protein (NEG mg/dL) NEGATIVE Urine Glucose (UA) (NEG mg/dL) NEGATIVE Urine Ketones (NEG mg/dL) NEGATIVE Urine Blood (NEG mg/DL) 1+ H Urine Nitrite (NEG SCREEN) NEGATIVE Urine Bilirubin (NEG mg/dL) NEGATIVE Urine Urobilinogen (<2.0 mg/dL) 0.2 Ur Leukocyte Esterase (NEGATIVE Leuk/mcL) NEGATIVE Urine RBC (0 - 3 #RBC/HPF) 0-1 Urine Culture Screen (Culture CHK Criteria) NO, WBC<10 Recent Impressions: CAT SCAN - CT HEAD/BRAIN W/O CONT 09/30 2231 Report Impression - Status: SIGNED Entered: 09/30/20222241 IMPRESSION: 1. No acute calvarial fracture, intracranial hemorrhage, infarct, or mass. 2. Age-related atrophy and chronic small vessel ischemic injuries. Impression By: Niesha - Naima Lizama MD RADIOLOGY - XR CHEST 1 V 09/30 2240 Report Impression - Status: SIGNED Entered: 09/30/20222251 IMPRESSION: No acute radiographic abnormality Impression By: [email or web address] - Deanna Armstrong M.D. CAT SCAN - CT ANGIO NECK 09/30 2240 Report Impression - Status: SIGNED Entered: 09/30/20222303 IMPRESSION: 1. No intracranial large vessel occlusion. No significant stenosis. No aneurysmal dilatation or vascular malformation. 2. Slight are aerated distal cerebral arteries may indicate underlying vasculopathy. 3. No stenosis, occlusion or dissection of the common or internal carotid arteries or vertebral arteries. Impression By: Naveen Carrillo M.D. CAT SCAN - CT ANGIO HEAD 09/30 2240 Report Impression - Status: SIGNED Entered: 09/30/20222303 IMPRESSION: 1. No intracranial large vessel occlusion. No significant stenosis. No aneurysmal dilatation or vascular malformation. 2. Slight are aerated distal cerebral arteries may indicate underlying vasculopathy. 3. No stenosis, occlusion or dissection of the common or internal carotid arteries or vertebral arteries. Impression By: Naveen Carrillo M.D. MDM-Stroke/CVA Free Text MDM Notes Free Text MDM Notes Differential diagnosis CVA/TIA, SAH as ICH, electrolyte abnormality, hypoglycemia, among others. Labs and imaging reviewed and discussed with patient and family at bedside. tPA considered however patient outside of tPA window. patient with expressive aphasia difficulty understanding verbal commands. No other focal neurodeficits identified. Will admit for further monitoring and management. Patient stable prior to admission. Re-Evaluation/Progress #1 Time of Re-Eval 53 Re-Eval Status stable Stroke Thrombolytic Therapy Administered IV Thrombolytic? No, exclusion criteria ED Course Medication(s) Ordered Medication(s) Ordered: Diagnostic Agents Sig/Fuentes Start time Last Medication Dose Route Stop Time Status Admin Iopamidol 0 .STK-MED ONE 09/30 2221 DC 09/30 .ROUTE 231 Electrolytic, Caloric, And Shelbi Sig/Fuentes Start time Last Medication Dose Route Stop Time Status Admin Sodium Chloride 100 ML .STK-MED ONE 09/30 2320 DC 09/30 IV 09/30 Patient Discharge Departure Vital Signs/Condition Vital Signs First Documented: Result Date Time Pulse Ox 97 09/30 2220 B/P 177/96 09/30 2220 B/P Mean 123 09/30 2220 O2 Delivery Room air 09/30 2220 Temp 37.1 09/30 2220 Pulse 90 09/30 2220 Resp 18 09/30 2220 Last Documented: Result Date Time Pulse Ox 100 10/01 57 B/P 140/72 10/01 57 B/P Mean 94 10/01 57 O2 Delivery Room air 10/01 57 Temp 36.7 10/01 57 Pulse 75 10/01 57 Resp 18 10/01 57 All vital signs available at the time of this entry have been reviewed. Condition Stable Clinical Impression Clinical Impression Primary Impression: CVA (cerebral vascular accident) Disposition Decision Admit Admit Physician Name Kayleigh Phipps MD Admit Physician Hospitalist Request Time 53 Request Date 10/01/22 )( Admission Accepts Yes )( Accepted Time 53 )( Accepted Date 10/01/22 Discharge/Care Plan Counseled Regarding Diagnosis, Lab results, Imaging studies, Need for admission Admit Note I have spoken with the patient and/or caregivers. I have explained the patient's condition, diagnoses and treatment plan based on the information available to me at this time. I have answered the patient's and/or caregiver's questions and addressed any concerns. The patient and/or caregivers have as good an understanding of the patient's diagnosis, condition and treatment plan as can be expected at this point. The patient has been stabilized within the capability of the emergency department. The patient will be transported for further care and management or will be moved to an observation or inpatient service. I have communicated with the staff or medical practitioner taking over this patient's care. at 0541 [facility] #: [id number] END OF REPORT [facility] 2019-07-02 13:10:00 [facility] ([facility]) EMERGENCY PROVIDER REPORT REPORT#:[id number] REPORT STATUS: Signed DATE:07/02/19 TIME: 1310 PATIENT: PATITO LONDONO UNIT #: [id number] ROOM/BED: AGE: 64 SEX: F PCP PHYS: DOES_NOT KNOW SERVICE AUTHOR: Evin Coronel MD * ALL edits or amendments must be made on the electronic/computer document * HPI-Sore Throat General Initial Greet Date/Time 07/02/19 1226 Presentation Chief Complaint Sore throat Hx Obtained From Patient Onset Occurred Today Symptom Duration Since onset Progression since Onset Constant Context of Onset Exposure, sick contacts, Exposure, strep Location Pharynx Quality Aching Severity: Onset Mild Severity: Current Moderate Free Text HPI Notes Free Text HPI Notes Patient began today with sf and st. No n/v/d. No cough. States family with strep. Review of Systems ROS Statements All systems rev neg except as marked. Focused Review of Systems Constitutional Reports: Fever. Denies: Weakness - generalized. Ears/Nose/Throat Reports: Sore throat. Respiratory Denies: Cough, productive, Shortness of breath. GI Denies: Nausea, Vomiting. Skin Denies: Rash. Neurologic Denies: Headache. Past Medical History - Adult Stated Complaint STEP THROAT Allergies Coded Allergies: No Known Allergies (06/08/17) Home Medications Reported Medications No Known Home Medications Review of Nursing Notes Rev avail, and agree Past Medical History: Reports: Hypertension. Additional Surgical History None Drug Use Denies recreational drugs Smoking status for patients 13 years old or older: Never Smoker Physical Exam Vital Signs Vital Signs First Documented: Result Date Time Pulse Ox 96 07/02 1230 B/P 184/90 07/02 1230 B/P Mean 121 07/02 1230 O2 Delivery Room air 07/02 1230 Temp 37.3 07/02 1230 Pulse 97 07/02 1230 Resp 18 07/02 1230 Last Documented: Result Date Time Pulse Ox 96 07/02 1230 B/P 184/90 07/02 1230 B/P Mean 121 07/02 1230 O2 Delivery Room air 07/02 1230 Temp 37.3 07/02 1230 Pulse 97 07/02 1230 Resp 18 07/02 1230 Review of Vital Signs Reviewed, Vital signs abnormal Basic Physical Exam Basic PE HEAD: Atraumatic/NC, RESP: No resp distress, EXT: No gross abnormality, SKIN: No rashes, warm/dry, NEURO: alert oriented, NEURO: gross movement NL, PSYCH: NL thought content Focused PE General/Const General/Const Awake, Alert, No acute distress, Well appearing, Well developed , Well hydrated, Well nourished, Cooperative, Not toxic appearing Ears/Nose/Throat Ears/Nose/Throat Atraumatic, Airway patent, Mucous membranes moist, No peritonsillar abscess, No pooling of secretions, Tympanic membs NL Pharynx/Tonsils/Uvula Pharyngeal erythema (no kt, no us, no hpv), Tonsillar erythema R, Tonsillar erythema L, Tonsillar exudate R, Tonsillar exudate L, Tonsillar swelling R, Tonsillar swelling L. Negative: Peritonsil abscess R, Peritonsil abscess L. MS Neck Neck Atraumatic, Supple, No meningismus, Full range of motion, No adenopathy, No swelling, Non-tender, No midline vertebral tend, No masses, No crepitus, No JVD, No tracheal deviation Resp/Chest Respiratory/Chest No respiratory distress Skin Skin Atraumatic, Color NL, No rash, Warm, Dry, Intact, Turgor NL, No swelling Neurologic Neurologic Oriented X3 Interpretation Diagnostics Lab Results Interpretation Results Microbiology: Date/Time Procedure - Status Source Growth 07/02 1235 Group A Streptococcus DNA Detection - COMP THROAT Point of Care Testing Micro Interpretation Strep rapid - neg Pulse Oximetry Pulse Ox % 98 On: Room air Interpretation Interpreted by me, Pulse oximetry normal Re-Evaluation MDM Free Text MDM Notes Free Text MDM Notes WAP. IOR GRW WONIS. Patient Discharge Departure Vital Signs/Condition Vital Signs First Documented: Result Date Time Pulse Ox 96 07/02 1230 B/P 184/90 07/02 1230 B/P Mean 121 07/02 1230 O2 Delivery Room air 07/02 1230 Temp 37.3 08/03 1230 Pulse 97 07/02 1230 Resp 18 07/02 1230 Last Documented: Result Date Time Pulse Ox 96 07/02 1230 B/P 184/90 07/02 1230 B/P Mean 121 07/02 1230 O2 Delivery Room air 07/02 1230 Temp 37.3 07/02 1230 Pulse 97 07/02 1230 Resp 18 07/02 1230 All vital signs available at the time of this entry have been reviewed. Condition Improved, Stable Clinical Impression Clinical Impression Primary Impression: Pharyngitis Disposition Decision Discharge )( Discharged to Home Yes )( Time 1310 )( Date 07/02/19 Discharge/Care Plan Counseled Regarding Diagnosis, Lab results, Prescriptions, Need for follow-up, When to return to ED Discharge Note I have spoken with the patient and/or caregivers. I have explained the patient's condition, diagnoses and treatment plan based on the information available to me at this time. I have answered the patient's and/or caregiver's questions and addressed any concerns. The patient and/or caregivers have as good an understanding of the patient's diagnosis, condition and treatment plan as can be expected at this point. The vital signs have been stable. The patient's condition is stable and appropriate for discharge from the emergency department. The patient will pursue further outpatient evaluation with the primary care physician or other designated or consulting physician as outlined in the discharge instructions. The patient and/or caregivers are agreeable to this plan of care and follow-up instructions have been explained in detail. The patient and/or caregivers have received these instructions in written format and have expressed an understanding of the discharge instructions. The patient and/or caregivers are aware that any significant change in condition or worsening of symptoms should prompt an immediate return to this or the closest emergency department or a call to 911. at 1423 RPT #:[id number] END OF REPORT [facility]
[2025-02-11] MEDS ORDERED: ALBUTEROL 2.5 MG/3 ML NEB SOL ONE (20:41)
[2025-02-11] MEDS ORDERED: IPRATROPIUM BROM 0.5MG/2.5ML ONE (20:41)
[2025-02-11] MEDS ORDERED: METHYLPREDNISOLONE 125 MG INJ ONE (20:42)
[2025-02-11 20:44] LABS: Absolute Basophils 0.1 K/uL (0-0.5); Absolute Eosinophils 0.3 K/uL (0-0.5); Absolute Lymphocytes (CBC) 2.4 K/uL (0.7-4.9); Absolute Monocytes 0.8 K/uL (0.1-1.3); Absolute Neutrophil 4.3 K/uL (1.8-8.0); Basophils % 1.3 % (0-1.3); Eosinophils % 3.3 % (0-4.4); Hemoglobin 13.7 g/dL (12.0-15.0); Lymphocytes % 30.4 % (15.3-44.8); MCH 31.6 pg (27.0-35.0); MCHC 33.4 g/dL (32.0-36.0); MCV 94.7 fL (80-100); MPV 6.9 fL (7.6-11.3); Monocytes % 9.9 % (3.3-12.3); Neutrophils % 55.1 % (41.7-73.7); Nucleated Red Blood Cells % 0.2 % (0-0); Platelets 237 thou/uL (152-406); RBC Red Blood Cell Count 4.33 M/uL (3.86-4.86); Red Cell Distribution Width 13.5 % (12.1-15.2)
--- NOTE | 2025-02-11 20:55 | RAD REPORT ---
EXAMINATION: ONE VIEW CHEST XR CLINICAL INDICATION: COUGH TECHNIQUE: Frontal chest projection is submitted. Examination is limited by patient positioning and t echnique. COMPARISON: 09/30/2022 FINDINGS: The lungs are well inflated and clear. The heart is upper limit of normal in size. No displaced fract ures identified. IMPRESSION: No acute intrathoracic abnormalities.
[2025-02-11 21:02] LABS: Anion Gap 7.9 mEq/L (5.0-15.0); Potassium 3.9 mEq/L (3.5-5.1); Troponin High Sensitivity 3.5 pg/mL (<58.9)
--- NOTE | 2025-02-11 21:07 | EDPHYS ---
Physician Documentation [facility] Name: Patito Self Age: 69 yrs Sex: Female : 1955 Arrival Date: 02/11/2025 Time: 19:49 Bed 11 Private MD: ED Physician Romaine Dumont HPI: 02/11 20:57 This 69 yrs old Female presents to ER via Ambulatory with complaints of Asthma ec2 Exacerbation. 20:57 Patient arrives today for cough and shortness of breath. Patient reports progressive ec2 shortness of breath ongoing and worsening over the past week. Reports a history of asthma several years ago, is not on any medications daily. Patient reports cough as well. No fevers, no vomiting, no diarrhea.. Historical: - Home Meds: 20:06 aspirin 81 mg Oral chew 1 tab once daily [Active]; atorvastatin 80 mg Oral tab 1 tab le1 once daily [Active]; hydrochlorothiazide 25 mg Oral tab 1 tab once daily [Active]; lisinopril Oral [Active]; topiramate 50 mg Oral tab 1 tab 2 times per day [Active]; - PMHx: 20:06 Cerebrovascular accident; Hypercholesterolemia; Hypertensive disorder; le1 - Immunization history:: Adult Immunizations up to date, Client reports having NOT received the Covid vaccine. - Infectious Disease History:: Denies. - Social history:: Smoking status: Patient denies any tobacco usage or history of. Patient/guardian denies using alcohol, street drugs, IV drugs. ROS: 20:57 Constitutional: as per hpi ec2 Exam: 20:57 Constitutional: GEN: NAD Head: atraumatic Eyes: EOMI Ears: External ears are ec2 normal. CV: regular rate LUNGS: no respiratory distress, occasional scattered wheeze appreciated. ABD: non-distended SKIN: no evidence of rashes MSK: no evidence of trauma Vital Signs: 20:03 BP 154 / 86; Pulse 93; Resp 18; Temp 98.3(O); Pulse Ox 98% on R/A; Weight 92.08 kg; le1 Height 5 ft. 0 in. ; Pain 0/10; 21:59 BP 137 / 64; Pulse 81; Resp 17 S; Temp 98.1(O); Pulse Ox 99% on R/A; Pain 0/10; lg3 20:03 Body Mass Index 39.65 (92.08 kg, 152.4 cm) le1 20:03 Pain Scale: Adult le1 21:59 Pain Scale: Adult lg3 MDM: 20:06 Medical Screening Exam initiated ec2 20:57 Data reviewed: vital signs, nurses notes. ED course: Patient arrives today for ec2 shortness of breath in setting of history of asthma. Examination yields cardiopulmonary examination. Will obtain lab work, chest x-ray, viral swabs. Will treat with DuoNeb and further assess.. 20:58 ED course: EKG independently reviewed and interpreted by me, shows normal sinus rhythm, ec2 rate of 87, no acute ST segment elevations, intervals are nonactionable.. 21:06 ED course: CBC is reassuring, metabolic profile with proper electrolytes and renal ec2 function, BNP within normal ranges, troponin within normal ranges, chest x-ray shows no acute intrathoracic process. Will set the patient on DuoNeb and steroids, suspect asthma exacerbation secondary to possible viral infection. Return precautions given.. 02/11 20:12 Order name: Basic Metabolic Panel; Complete Time: 21:05 ec2 02/11 20:12 Order name: CBC with Diff; Complete Time: 21:05 ec2 02/11 20:12 Order name: NT PRO-BNP; Complete Time: 21:05 ec2 02/11 20:12 Order name: Troponin HS; Complete Time: 21:05 ec2 02/11 20:12 Order name: COVID-19 Ag + Flu A+B Ag; Complete Time: 21:35 ec2 02/11 20:12 Order name: XRAY Chest (1 view); Complete Time: 21:05 ec2 02/11 20:12 Order name: Cardiac monitoring; Complete Time: 20:39 ec2 02/11 20:12 Order name: EKG - Nurse/Tech; Complete Time: 20:56 ec2 02/11 20:12 Order name: IV Saline Lock; Complete Time: 20:39 ec2 02/11 20:12 Order name: Labs collected and sent; Complete Time: 20:39 ec2 02/11 20:12 Order name: O2 Per Protocol; Complete Time: 20:39 ec2 02/11 20:12 Order name: O2 Sat Monitoring; Complete Time: 20:39 ec2 Administered Medications: 20:56 Drug: DuoNeb Nebulize (3:1) (2.5 mg - 0.5 mg) 3 ml Nebulizer once Route: Nebulizer; le1 22:02 Follow up: Response: No adverse reaction; Marked relief of symptoms lg3 20:56 Drug: MethylPrednisoLONE IVP 125 mg IVP once Route: IVP; Site: right antecubital; le1 22:02 Follow up: Response: No adverse reaction lg3 Disposition Summary: 02/11/25 21:06 Discharge Ordered Notes: Location: Home ec2 Condition: Stable ec2 Diagnosis - Mild persistent asthma with (acute) exacerbation ec2 Followup: ec2 - With: Private Physician - When: - Reason: Recheck today's complaints Discharge Instructions: - Discharge Summary Sheet ec2 - Asthma, Adult ec2 Forms: - Medication Reconciliation Form ec2 - Antibiotic Education ec2 - Prescription Opioid Use ec2 - Patient Portal Instructions ec2 - Leadership Thank You Letter ec2 Prescriptions: - albuterol sulfate 90 mcg/actuation Inhalation HFA Aerosol Inhaler - inhale 4 inhalation INHALATION route every 2 hours as needed for shortness of ec2 breath or wheezing; until breathing returns to target peak flow/parameters; 1 unit; Refills: 0, Product Selection Permitted - Prednisone 20 mg Oral Tablet - take 2 tablets ORAL route once daily for 5 days; 10 tablet; Refills: 0, Product ec2 Selection Permitted Signatures: Dispatcher [employer] Romaine Santana MD MD ec2 Carlee Garcia RN RN le1 Harriett Amador RN lg3 Corrections: (The following items were deleted from the chart) 20:12 20:12 COVID-19 Ag + Flu A+B [id number] ordered. ED EDMS
--- NOTE | 2025-02-11 21:07 | ER ---
Nurse's Notes [facility] Name: Patito Self Age: 69 yrs Sex: Female : 1955 Arrival Date: 02/11/2025 Time: 19:49 Bed 11 Private MD: Diagnosis: Mild persistent asthma with (acute) exacerbation Presentation: 02/11 20:03 Chief complaint: Patient states: Patient states she has had sob for the past three le1 days. Does not own any inhaler/breathing treatments. Has also had a productive cough. Unaware of color of sputum. Coronavirus screen: Client denies travel out of the [place] in the last 14 days. At this time, the client does not indicate any symptoms associated with coronavirus-19. Ebola Screen: Patient negative for fever greater than or equal to 101.5 degrees Fahrenheit, and additional compatible Ebola Virus Disease symptoms Patient denies exposure to infectious person. Patient denies travel to an Ebola-affected area in the 21 days before illness onset. No symptoms or risks identified at this time. Initial Sepsis Screen: Does the patient meet any 2 criteria? No. Patient's initial sepsis screen is negative. Does the patient have a suspected source of infection? No. Patient's initial sepsis screen is negative. Risk Assessment: Do you want to hurt yourself or someone else? Patient reports no desire to harm self or others. Onset of symptoms was February 08, 2025. 20:03 Method Of Arrival: Ambulatory le1 20:03 Acuity: MARCIANO 3 le1 Triage Assessment: 20:08 General: Appears in no apparent distress. comfortable, Behavior is calm, cooperative, le1 appropriate for age. Pain: Denies pain. Historical: - Home Meds: 20:06 aspirin 81 mg Oral chew 1 tab once daily [Active]; atorvastatin 80 mg Oral tab 1 tab le1 once daily [Active]; hydrochlorothiazide 25 mg Oral tab 1 tab once daily [Active]; lisinopril Oral [Active]; topiramate 50 mg Oral tab 1 tab 2 times per day [Active]; - PMHx: 20:06 Cerebrovascular accident; Hypercholesterolemia; Hypertensive disorder; le1 - Immunization history:: Adult Immunizations up to date, Client reports having NOT received the Covid vaccine. - Infectious Disease History:: Denies. - Social history:: Smoking status: Patient denies any tobacco usage or history of. Patient/guardian denies using alcohol, street drugs, IV drugs. Screenin:59 [facility] ED Fall Risk Assessment (Adult) History of falling in the last 3 months, lg3 including since admission No falls in past 3 months (0 pts) Confusion or Disorientation No (0 pts) Intoxicated or Sedated No (0 pts) Impaired Gait No (0 pts) Mobility Assist Device Used No (0 pt) Altered Elimination No (0 pt) Score/Fall Risk Level 0 - 2 = Low Risk Oriented to surroundings, Maintained a safe environment, Educated pt \T\ family on fall prevention, incl call for assistance when getting out of bed, Assessed \T\ reinforced patient's understanding of fall precautions. Abuse screen: Denies threats or abuse. Denies injuries from another. Nutritional screening: No deficits noted. Tuberculosis screening: No symptoms or risk factors identified. Assessment: 21:59 General: Appears in no apparent distress. comfortable, Behavior is calm, cooperative. lg3 Pain: Denies pain. Neuro: No deficits noted. Amezquita Agitation-Sedation Scale (RASS): 0 - Alert and Calm Level of Consciousness is awake, alert, obeys commands, Oriented to person, place, time, situation. Cardiovascular: No deficits noted. Reports shortness of breath, Denies chest pain, Heart tones S1 S2 present. Respiratory: Reports shortness of breath cough that is Airway is patent Respiratory effort is even, unlabored, Respiratory pattern is regular, symmetrical, Breath sounds are clear bilaterally. the patient has mild shortness of breath. GI: No deficits noted. No signs and/or symptoms were reported involving the gastrointestinal system. : No signs and/or symptoms were reported regarding the genitourinary system. EENT: No deficits noted. No signs and/or symptoms were reported regarding the EENT system. Derm: No deficits noted. No signs and/or symptoms reported regarding the dermatologic system. Skin is intact, is healthy with good turgor, Skin is dry, Skin is normal, Skin temperature is warm. Musculoskeletal: No deficits noted. No signs and/or symptoms reported regarding the musculoskeletal system. Circulation, motion, and sensation intact. Range of motion: intact in all extremities. Vital Signs: 20:03 BP 154 / 86; Pulse 93; Resp 18; Temp 98.3(O); Pulse Ox 98% on R/A; Weight 92.08 kg; le1 Height 5 ft. 0 in. ; Pain 0/10; 21:59 BP 137 / 64; Pulse 81; Resp 17 S; Temp 98.1(O); Pulse Ox 99% on R/A; Pain 0/10; lg3 20:03 Body Mass Index 39.65 (92.08 kg, 152.4 cm) le1 20:03 Pain Scale: Adult le1 21:59 Pain Scale: Adult lg3 ED Course: 19:53 Patient arrived in ED. im 19:59 Romaine Dumont MD is Attending Physician. ec2 20:05 Triage completed. le1 20:52 XRAY Chest (1 view) In Process Unspecified. EDMS 20:56 Initial lab(s) drawn, by me, sent to lab. COVID swab sent to lab. Flu and/or RSV swab le1 sent to lab. Inserted saline lock: 20 gauge in right antecubital area, using aseptic technique. Blood collected. Flushed with 10 mL NS. 21:59 No provider procedures requiring assistance completed. IV discontinued, intact, lg3 bleeding controlled, No redness/swelling at site. Pressure dressing applied. 21:59 Patient has correct armband on for positive identification. Door closed. Noise lg3 minimized. Warm blanket given. Pillow given. 21:59 Arm band placed on. lg3 Administered Medications: 20:56 Drug: DuoNeb Nebulize (3:1) (2.5 mg - 0.5 mg) 3 ml Nebulizer once Route: Nebulizer; le1 22:02 Follow up: Response: No adverse reaction; Marked relief of symptoms lg3 20:56 Drug: MethylPrednisoLONE IVP 125 mg IVP once Route: IVP; Site: right antecubital; le1 22:02 Follow up: Response: No adverse reaction lg3 Medication: 21:59 VIS not applicable for this client. lg3 Outcome: 21:06 Discharge ordered by . ec2 21:59 Discharged to home ambulatory, lg3 21:59 Condition: stable 21:59 Discharge instructions given to patient, Instructed on discharge instructions, follow up and referral plans. medication usage, Demonstrated understanding of instructions, follow-up care, medications, Prescriptions given X 2, 22:03 Patient left the ED. lg3 Signatures: Dispatcher [employer] Harriett Cordon RN RN lg3 Maryjane Tanner Edwin, MD MD ec2 Carlee Garcia RN RN le1
[2025-02-11 21:31] LABS: Influenza A Ag Negative; Influenza B Ag Negative; SARS-CoV-2 Antigen Rapid Res Negative (Negative)
[2025-02-11 22:08] VITALS: BP 137/64; TEMP 98.1; O2SAT 99
== END 2025-02-11 22:03 | disposition home or self-care (01) ==
LOC: ER 19:49
DX: J45.31 Mild persistent asthma with (acute) exacerbation (principal); Z79.82 Long term (current) use of aspirin; Z11.52 Encounter for screening for COVID-19
CPT/HCPCS: 93005; 85025; 80048; 36415; 84484; 83880; 71045; 96374; 99285; 87428; J7613; J7644; J2919

== ENCOUNTER 2025-09-12 15:34 | Emergency (ER) | payer OTHER ==
--- OUTSIDE RECORDS SUMMARY | 2025-09-12 15:48 | XMS REPORT | Continuity of Care Document ---
Author Name Unknown Address [address] [facility]. [address] [place] [address] [facility] Address [address] [facility] 1 [address] [place] [address] Care Team Providers Care Cadmium Plater Name Role Phone DIOGO JIMENEZ Primary Care Physician Unavailab LAMAR Gonzales Attending Clinician Unavailable Kari Mcmillan Attending Clinician [phone] KARI MCMILLAN Attending Clinician Unavailable 2, [facility] Attending Clinician Unavailable Darwin Waller MD Attending Clinician DARWIN WALLER Attending Clinician Unavailable Kayleigh Phipps Attending Clinician Unavailable LAMAR ODONNELL Admitting Clinician Unavailable Kayleigh Phipps Admitting Clinician Unavailable Payers Payer Name Policy Type Policy Number Effective Date Expirati on Date Source MEDICARE PART A \\T\\ B [id number] 2022 00:00:00 Allergies, Adverse Reactions, Alerts Allergy Name Allergy Type Status Severity Reaction(s) Onset Date Inactive Date Treating Clinician Comments Source Morphine Propensi ty to adverse reaction s Active Other - See comments 03-28 00:00: 00 Patient states she got "real cold" after being given morphine. [facility] MORPHINE DRUG INGREDI Active Other-Cmnt 03-28 00:00: 00 [facility] morphine DA Active U UNKNOWN 2021-11 00:00: 00 [facility] No Known Allergie s DA Active U 06-08 00:00: [address] [facility] No Known Allergie s DA Active U 06-08 00:00: 00 [facility] Social History Social Habit Start Date Stop Date Quantity Comments Source ASSERTION Not [facility] Alcoholic beverage intake 2025-05-30 00:00:00 2025-05-30 00:00:00 Lifetime non-drinker (finding) [facility] Tobacco use and exposure 2025-03-28 00:00:00 2025-03-28 00:00:00 Smokeless tobacco non-user [facility] History of Social function 2025-03-28 00:00:00 2025-03-28 00:00:00 [facility] Sex assigned at 1955 00:00:00 1955 00:00:00 [facility] Smoking Status Start Date Stop Date Source Never smoked tobacco [facility] Medications Ordered Medication Name Filled Medication Name Start Date Stop Date Current Medication? Ordering Clinician Indication Dosage Frequency Signature (SIG) Comments Components Source iopamidol (ISOVUE 370-500 mL) injection 120 mL 03-31 16:15: 00 03-31 15:28 :00 No [id number] 120mL 120 mL, Intravenou s, ONCE, 1 dose, On Thu03/31/25 at 1115, Routine [facility] atorvastati n 80 mg tablet 03-28 08:35: 35 Yes 80mg Take 1 tablet by mouth at bedtime. [facility] lisinopriL 30 mg tablet 03-28 08:35: 35 Yes 30mg Take 1 tablet by mouth in the morning. [facility] aspirin (ADULT LOW DOSE ASPIRIN) 81 mg EC tablet 03-28 08:35: 35 Yes 81mg Take 1 tablet by mouth in the morning. [facility] tamsulosin 0.4 mg 24 hr capsule 03-28 00:00: 00 Yes [id number] .4mg Take 1 capsule by mouth in the morning. [facility] Vital Signs Vital Name Observation Time Observation Value Comments S caylace Systolic blood pressure 2025-05-30 14:11:00 117 mm[Hg] [facility] Diastolic blood pressure 2025-05-30 14:11:00 71 mm[Hg] [facility] Heart rate 2025-05-30 14:10:00 93 /min [facility] Body temperature 2025-05-30 14:10:00 36.44 Princess [facility] Body height 2025-05-30 14:10:00 154.9 cm [facility] Body weight 2025-05-30 14:10:00 94.076 kg [facility] BMI 2025-05-30 14:10:00 39.19 kg/m2 [facility] Systolic blood pressure 2025-05-15 13:23:00 136 mm[Hg] [facility] Diastolic blood pressure 2025-05-15 13:23:00 85 mm[Hg] [facility] Heart rate 2025-05-15 13:23:00 105 /min [facility] Body temperature 2025-05-15 13:22:00 36.72 Princess [facility] Respiratory rate 2025-05-15 13:22:00 18 /min [facility] Body height 2025-05-15 13:22:00 154.9 cm [facility] Body weight 2025-05-15 13:22:00 94.257 kg [facility] BMI 2025-05-15 13:22:00 39.26 kg/m2 [facility] Oxygen saturation in Arterial blood by Pulse oximetry 2025-05-15 13:22:00 95 /min [facility] Systolic blood pressure 2025-03-28 13:38:00 141 mm[Hg] [facility] Diastolic blood pressure 2025-03-28 13:38:00 86 mm[Hg] [facility] Heart rate 2025-03-28 13:38:00 96 /min [facility] Oxygen saturation in Arterial blood by Pulse oximetry 2025-03-28 13:38:00 95 /min [facility] Body temperature 2025-03-28 13:30:00 36.72 Princess [facility] Respiratory rate 2025-03-28 13:30:00 20 /min [facility] Body height 2025-03-28 13:30:00 154.9 [facility] 2025-03-28 13:30:00 93.441 kg [facility] BMI 2025-03-28 13:30:00 38.92 kg/m2 [facility] Procedures Procedure Date / Time Performed Performing Clinician Source US PELVIS COMPLETE WITH TRANSVAGINAL 2025-05-22 16:25:53 Lamar Odonnell [facility] CT ABDOMEN PELVIS W WO CONTRAST 2025-03-31 15:13:00 Deyanira Kari [facility] HB CREATININE SERUM/BLOOD FOR IMAGING 2025-03-31 14:55:00 [facility] ELENA,POST-VOID RES,US,NON-IMAGING 2025-03-28 13:51:00 Darwin Waller [facility] POCT URINALYSIS AUTO 2025-03-28 13:51:00 Lauren Waller h [facility] [id number] 2022-10-01 00:00:00 BOBBY.01 [facility] [id number] 2022-10-01 00:00:00 BOBBY.01 [facility] Encounters Start Date/Time End Date/Time Encounter Type Admission Type Attending Clinicians Care Facility Care Department Encounter ID Source 2025-05-30 09:00:00 2025-05-30 09:38:38 [facility] 1.2840.114 350.1.13.10 4.2.7.2.686 [id number] [facility] 2025-05-30 09:00:00 2025-05-30 09:00:00 Outpatient R [facility] [id number] [facility] 2025-05-29 08:15:00 2025-05-29 08:15:00 Outpatient R LAMAR ODONNELL [facility] [id number] [facility] 2025-05-22 10:50:08 2025-05-22 23:59:00 Hospital Encounter R LAMAR ODONNELL [facility] 1.2840.114 350.1.13.10 4.2.7.2.686 [id number] [facility] 2025-05-15 08:00:00 2025-05-15 08:42:29 Office Visit LAMAR GARCIA [facility] 1.2840.114 350.1.13.10 4.2.7.2.686 [id number] [facility] 2025-04-03 00:00:00 2025-04-03 11:58:25 Telephone Kari Mcmillan [facility] 1.2840.114 350.1.13.10 4.2.7.2.686 [id number] [facility] 2025-03-31 08:58:28 2025-03-31 23:59:00 Outpatient R KARI MCMILLAN [facility] [id number] [facility] 2025-03-31 08:45:00 2025-03-31 23:59:00 Hospital Encounter Kari Mcmillan [facility] 1.2840.114 350.1.13.10 4.2.7.2.686 [id number] [facility] 2025-03-31 08:30:00 2025-03-31 08:45:00 Extruder Operator Multiple Visit 2, Adc Lab Darwin Waller 2, Adc Lab [facility] 1.2.840.114 350.1.13.10 4.2.7.2.686 [id number] [facility] 2025-03-29 13:50:00 2025-03-29 13:50:00 Outpatient R KARI MCMILLAN [facility] [id number] [facility] 2025-03-28 08:30:00 2025-03-28 09:57:28 Office Visit Darwin Waller [facility] 1..840.114 350.1.13.10 4.2.7.2.686 [id number] [facility] 2025-03-28 08:30:00 2025-03-28 09:57:28 Outpatient R DARWIN WALLER [facility] [id number] [facility] 2022-10-01 15:56:00 2022-10-02 13:14:00 Inpatient Kayleigh Rapp [facility] INTE.[id number] [facility] Results Test Description Test Time Test Comments Results Result Comments Source US Pelvis complete with transvaginal 16:47:19 Exam: US PELVIS COMPLETE WITH TRANSVAGINAL Clinical History: Evalution of endometrial lining for thickness Comparison: CT from March 2025 Findings: Grayscale ultrasound and color Doppler evaluation of the pelvis wasperformed. The uterus measures about 7.0 x 3.3 cm. Endometrium measures 1.4 cm inthickness. Small fibroids are suspected. The right ovary measures 0.5 mL volume. The left ovary measures 0.9 mLvolume. No evidence of adnexal masses. [facility] CT Abdomen pelvis w wo contrast 18:31:44 CT ABDOMEN PELVIS W WO CONTRAST 03/31/2025 9:45 AM HISTORY: kidney stone CT abd/pelvis w w contrast with urographic phase COMPARISON: None. TECHNIQUE: Axial images of the abdomen and pelvis were acquired afteradministration of intravenous contrast in the nephrogenic phase. Coronaland sagittal reconstructions were also created. FINDINGS: LOWER CHEST: Calcified subcentimeter granuloma in the right lower lobe.Mild coronary artery atherosclerotic calcifications are noted. HEPATOBILIARY: The liver is normal in size.No focal hepatic lesion.No biliary ductal dilatation. The gallbladder is surgically absent. SPLEEN: Within normal limits. PANCREAS: The parenchyma is unremarkable.No ductal dilatation. No masses. ADRENAL GLANDS: No adrenal nodules. KIDNEYS: 0.4 cm renal stone in the superior pole the right kidney. Nohydronephrosis . No solid mass. GI TRACT: No dilation or wall thickening. Sigmoid colonic diverticulosiswith some wall thickening the sigmoid colon which may be due tounderdistention. No adjacent fat stranding. PERITONEUM AND RETROPERITONEUM: No free air or free fluid. LYMPH NODES: No lymphadenopathy is seen. PELVIS/BLADDER: The urinary bladder is normal. There is layering contrastin the bladder. The reproductive organs are within normal limits. VESSELS: Mild aortoiliac atherosclerotic calcifications. BONES AND SOFT TISSUES: Mild degenerative changes lumbar spine with grade 1anterolisthesis of L4 on L5. No aggressive osseous lesion or acute osseousabnormality. No concerning soft tissue abnormality. [facility], [id number] 13:51:00 * Test Item Value Reference Range Interpretation Comme nts POCT U SP GRAV (test code = 3255) 1.025 mg/dl 1.005-1.025 POCT PH U (test code = 3254) 5.5 mg/dl 5-8 POCT U LEUK EST (test code = 3263) Negative Negative - Negative POCT U NIT (test code = 3262) Negative Negative - Negati ve POCT U PROT (test code = 3259) Negative Negative - Negative POCT U GLU (test code = 3256) Negative Negative - Negati ve POCT U KETONE (test code = 3258) Negative Negative - Negative POCT U UROBILI (test code = 3260) 0.2 mg/dl 0.2-1 POCT U BILI (test code = 3261) Negative Negative - Negative POCT U BLD (test code = 3257) Moderate Negative - Negati ve A POCT U COLOR (test code = 3266) Yellow POCT U APPEAR (test code = 3267) Clear Lab Interpretation (test cod e = 30945-5) Abnormal [facility],POST-VOID RES,US,[id number] 13:51:00* Test Item Value Reference Range Interpretation Comme nts PVR (URINE VOLUME) (test code = 5193) 1 ml 0-100 [facility]HGBA1C2022-11-03 05:19:00* Test Item Value Reference Range Interpretation Comme nts GLYCOSYLATED HEMOGLOBIN (HA1 C) (test code = GLYHGB) 5.5 % A1C 0.0-5.7 N ESTIMATED AVERAGE GLUCOSE (t est code = EAG) 111 MG/DLest LIPID PROFILE (CORONARY RISK)2022-10-02 05:01:00* Test Item [...] = LDL) 147 MG/DL 0-129 H <100 [id number] 0 - 129 NEAR OPTIMAL/ABOVE [id number] - 159 [id number] - 189 HIGH>OR= 190 VERY HIGHNOTE THAT GUIDELINES ARE PROVIDED BY NATIONAL CHOLESTEROLEDUCATION PROGRAM ADULT TREATMENT PANEL III LDL/HDL (test code = LDL/HDL) 2.82 Ratio See_Comment N [Automated messa ge] The system which generated this result transmitted reference range: 1.48-3.22 Avg. The reference range was not used to interpret this result as normal/abnormal. Comment: FASTING IN AMCSF CELL CT/[id number] 18:18:00* Test Item Value Reference Range Interpretation Comme nts CSF COLOR (test code = COLCSF) COLORLESS DESCRIP. COLORLESS CSF APPEARANCE (test code = APPCSF) CLEAR DESCRIP. CLEAR CSF TUBE # (test code = TUBECSF) #3 Tube# Tube Used CSF WBC (test code = WBCCSF) 2 #/mm3 0-5 N CSF RBC (test code = RBCCSF) 1000 #/mm3 0-0 H CSF [id number] 18:18:00* Test Item Value Reference Range Interpretation Comme nts CSF GLUCOSE (test code = GLUCSF) 69 MG/DL 40-75 N CSF TOTAL [id number] 18:18:00* Test Item Value Reference Range Interpretation Comme nts CSF TOTAL PROTEIN (test code = PROTCSF) 35.4 MG/DL 15.0-45.0 N - XR LUMBAR [id number] 16:49:00 [facility] 1955 Sex: F Name: PATITO LONDONO [facility] : 1955 Age/S: 67 / F [id number] [address] Unit #: [id number] Loc: [place] [address] Phys: Sue Wills Acct: [id number] Dis Date: Status: ADM IN PHONE #: [phone] Exam Date: 10/01/2022 1630 FAX #: Reason: EVAL FOR IIH EXAMS: CPT: [id number] XR LUMBAR PUNCTURE 40376 Fluoro Time: DAP (Gy m2): Air Kerma (mGy): Location Code: S17 REASON FOR EXAM: EVAL FO R IIH COMPARISON: None. FINDINGS: After explaining risks and benefits of the procedure, (including,but not limited to, bleeding, infection and headache), [...] Closing pressure was less than 5. at 8038 Reported and signed by: Patricio Taylor M.D. CC: Sue SERRA; Kayleigh Phipps MD PAGE 1 Signed Report Name: PATITO LONDONO [facility] : 1955 Age/S: 67 / F [address] [address] Unit #: [id number] Loc: [place] [address] Phys: Sue Wills Acct: [id number] Dis Date: Status: ADM IN PHONE #: [phone] Exam Date: 10/01/2022 1639 FAX #: Reason: EVAL FOR IIH EXAMS: CPT: [id number] XR LUMBAR PUNCTURE 73375 Fluoro Time: DAP (Gy m2): Air Kerma (mGy): (Continued) Technologist: RT Zoya(R) Trnscb Date/Time: 10/01/2022 (1648) [email or web address] Orig Print D/T: S: 10/01/2022 (3888) PAGE 2 Signed Report- MRI BRAIN W/O [id number] 08:39:00 [facility] : 1955 Sex: F FAX: Y Joce Morrissey APPLICATIONS INTERN [phone] Camps: PM St: ADM FAX: Kayleigh Phipps MD [phone] Name: PATITO LONDONO [facility] : 1955 Age/S: 67/F [address] [address] Unit #: [id number] Loc: [place] Phys: Gabrielle Morrissey APRNNP Acct: [id number] Dis Date: Status: ADM IN PHONE #: [phone] Date: 10/01/2022 0800 FAX #: Reason: CVA, expressive aphasia EXAMS: CPT: [id number] MRI BRAIN W/O CONTRAST 77379 Location: B2 EXAM: MRI brain without contrast [...] hydrocephalus or midline shift. No brain herniation. 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 There is a 1.6 x 2.3 cm arachnoid cyst inthe medial aspect of the middle cranial fossa [...] of the left tegmen mastoideum and tympani (image15 series 8). There is remodeling of the sella turcica, with a partial empty sella appearance. Trace mucosal thickening within the left maxillary sinus. PAGE 1 Signed Report (CONTINUED) FAX: Gabrielle Cary APRN [phone] Camps: PM St: ADM FAX: Kayleigh Phipps MD [phone] Name: PATITO LONDONO [facility] : 1955 Age/S: 67/F [address] [facility] Unit #: [id number] Loc: [place] [address] Phys: Gabrielle Morrissey APRNNP Acct: [id number] Dis Date: Status: ADM IN PHONE #: [phone] Exam Date: 10/01/2022 0800 FAX #: Reason: CVA, expressive aphasia EXAMS: CPT: [id number] MRI BRAIN W/O CONTRAST 06751 (Continued) Major intracranial flow voids are well [...] cranial fossa and left tegmen mastoideum and t ympani. Partial empty sella. The constellation of findings are suspicious for idiopathic intracranial hypertension. at 0839 Reported and signed by: Malu Huang M.D. CC: Gabrielle Morrissey; Kayleigh Phipps MD Technologist: Stevan Park, RT(R)(CT)(MR) Transcribed Date/Time/By: 10/01/2022 (0839) :Jimmy Orig Print D/T: S: 10/01/2022 (0842) PAGE 2 Signed ReportGLUCOSE BEDSIDE TESTING 2022-10-01 05:25:00* Test Item Value Reference Range Interpretation Comme nts GLUCOSE BEDSIDE TESTING (barber t code = GLUBED) 128 mg/dL 70-110 H UA RFLX MICR CULT IF [id number] 00:44:00* Test Item Value Reference Range Interpretation [...] 00:14:00* Test Item Value Reference Range Interpretation [facility] COVID 19 Asymptomatic IH AG (test code = COVNONPUIAG) NEGATIVE Negative Per power shear operator , negative results should be treated aspresumptive [...] clinicalsigns and symptoms consistent with COVID-19. PROTHROMBIN [id number] 23:22:00* Test Item Value Reference Range Interpretation [facility] PT PATIENT (test code = PTP) 10.8 [...] Infarction (to prevent recurrent infarct). THROMBOPLASTIN TIME [id number] 23:22:00* Test Item Value Reference Range Interpretation [facility] THROMBOPLASTIN TIME PARTIAL (test code = PTT) 38.5 SECONDS 26-35 H GLUCOSE BEDSIDE [id number] 23:13:00* Test Item Value Reference Range Interpretation [facility] GLUCOSE BEDSIDE TESTING (barber t code = GLUBED) 128 mg/dL 70-110 H BASIC METABOLIC [id number] 23:08:00* Test Item Value Reference Range Interpretation Comme nts SODIUM (test code = NA) 140 mmol/L [...] 8.5-10.1 N Completed by Nursing: NOTROP-I HIGH [id number] 23:08:00* Test Item Value Reference Range Interpretation [...] method. Completed by Nursing: NO- CT ANGIO [id number] 23:01:00 [facility] : 1955 Sex: F Name: PATITO LONDONO [facility] : 1955 Age/S: 67 / F [address] [address] Unit #: [id number] Loc: [place] [address] Phys: Jaquan Dsouza MD Acct: [id number] Dis Date: Status: PRE ER PHONE #: [phone] Exam Date: 09/30/20222244 FAX #: Reason: aphasia EXAMS: CPT: [id number] CT ANGIO NECK [address] Exam: - CT ANGIO HEAD, - CT [...] patient size, and/or utilization of iterative reconstruction technique.GFR: , Creatinine: mg/dL DLP: mGy-cm. FINDINGS: CTA Neck Aorta and great vessel origins: No significant plaque at the aortic arch. 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 No stenosisof the origins of the internal carotid arteries or left subclavian artery. Carotid arteries: Commoncarotid arteries are normal in caliber. Carotid bifurcations [...] LONDONO : 1955 Age/S: 67 / F [address] [address] Unit #: [id number] Loc: [place] [address] Phys:Jaquan Dsouza MD Acct: [id number] Dis Date: Status: PRE ER PHONE #: [phone] Exam Date: 2021 FAX #: Reason: aphasia EXAMS: CPT: [id number] CT ANGIO NECK [address] (Continued) Bones: Spondylosis is noted in the mid cervical spine. No discrete osteolytic or osteosclerotic lesions are seen. Thorax: No significant abnormality. FINDINGS: CTA Head Internal carotid arteries: Patent. No sig nificant abnormality. Middle cerebral arteries (M1 and M2 segments): Patent. No significant abnormality. Anterior cerebral arteries (A1 and A2 segments): Patent. No significant abnormality. Anterior communicating artery: Patent. No significant abnormality. Vertebral arteries (V4 segments): Patent. No significant abnormality. Basilar artery and branches: Patent. No significant abnormality. Posterior inferior, anterior inferior and superior cerebellar artery origins are patent. Posterior cerebralartery (P1 and P2 segments): Patent. No significant [...] parenchymal or leptomeningeal enhancement is present. The brennan-white differentiation is maintained withoutevidence for acute major vessel infarct. PAGE 2 Signed Report (CONTINUED) Name: PATITO LONDONO : 1955 Age/S: 67 / F [address] [address] Unit #: [id number] Loc: [place] [address] Phys: Jaquan Dsouza MD Acct: [id number] Dis Date: Status: PRE ER PHONE #: [phone] Exam Date: 09/30/20222244 FAX #: Reason: aphasia EXAMS: CPT: [id number] CT ANGIO NECK [address] (Continued) Paranasal sinuses, mastoid air cells and [...] RT(R) CTDI: DLP: Trnscb Date/Time: 09/30/2022 (2300) [email or web address] Orig Print D/T: S: 09/30/2022 (2303) PAGE 3 Signed Report- CT ANGIO [id number] 23:01:00 [facility] : 1955 Sex: F Name: PATITO LONDONO [facility] : 1955 Age/S: 67 / F [address] [address] Unit #: [id number] Loc: [place] [address] Phys: Jaquan Dsouza MD Acct: [id number] Dis Date: Status: PRE ER PHONE#: [phone] Exam Date: 09/30/2022 FAX #: Reason: aphasia EXAMS: CPT: [id number] CT ANGIO HEAD [address] Exam: - CT ANGIO HEAD, - CT ANGIO NECK Location: H24 HISTORY: aphasia, right ear pain andconfusion COMPARISON: Correlation with noncontrast CT of the head from 09/30/2022 at 2231 TECHNIQUE:Axial images of the neck and head were [...] caliber. Carotid bifurcations are patent without stenosis. Originsof the internal carotid arteries are within normal [...] 1 Signed Report (CONTINUED) Name: PATITO LONDONO [facility] : 1955 Age/S: 67 / F [address] [facility] Unit #: [id number] Loc: [place] [address] Phys: Jaquan Dsouza MD Acct: [id number] Dis Date: Status: PRE ER PHONE #: [phone] Exam Date: 09/30/20222244 FAX #: Reason: aphasia EXAMS: CPT: [id number] CT ANGIO HEAD [address] (Continued) Bones: Spondylosis is noted in the mid cervical spine. No discrete osteolytic or osteosclerotic lesions areseen. Thorax: No significant abnormality. FINDINGS: CTA Head Internal carotid arteries: Patent. Nosignificant abnormality. Middle cerebral arteries (M1 and M2 [...] segments): Patent. No significant abnormality. Posterior communicating arteri es: Not visualized Distal cerebral arteries: No stenosis, occlusion, aneurysmal dilatation or vascular malformation. Slight irregularity of distal cerebral arteries may indicate underlying vasculopathy. Dural venous sinuses: No visualized filling defects. Head with contrast: There is no acute intracranial hemorrhage, mass, mass effect, midline shift or extra-axial fluid collection. No abnormal parenchymal or leptomeningeal enhancement is present. The brennan-white differentiation is maintained without evidence for acute major vessel infarct. PAGE 2 Signed Report (CONTINUED) Name: PATITO LONDONO [facility] : 1955 Age/S: 67 / F [address] [address] Unit #: [id number] Loc: [place] [address] Phys: Jaquan Dsouza MD Acct: [id number] Dis Date: Status: PRE ER PHONE #: [phone] ExamDate: 09/30/2022 2245 FAX #: Reason: aphasia EXAMS: CPT: [id number] CT ANGIO HEAD [address] (Continued)Paranasal sinuses, mastoid air cells and intraorbital contents [...] Patel, RT(R) CTDI: DLP: Trnscb Date/Time: 09/30/2022 (230) [email or web address] Orig Print D/T: S: 09/30/2022 (2304) PAGE 3 [facility]igned [facility] W/AUTO [id number] 22:56:00* Test Item Value Reference Range Interpretation [...] NO DIFF/SCN CRITERIA - XR CHEST 1 [id number] 22:49:00 [facility] 1955 Sex: F Name: PATITO LONDONO [facility] : 1955 Age/S: 67 / F [id number] [address] Unit #: [id number] Loc: [place] [address] Phys: Jaquan Dsouza MD Acct: [id number] Dis Date: Status: PRE ER PHONE #: [phone] Exam Date: 09/30/20222244 FAX #: Reason: Code Stroke EXAMS: CPT: [id number] XR CHEST 1 V 02152 Fluoro Time: DAP (Gy m2): Air Kerma (mGy): EXAMINATION: - XR CHEST 1 V HISTORY: Code stroke COMPARISON: None. LOCATION CODE: C3 FINDINGS: Single frontal view of the chest is submitted for evaluation. The lungs are clear. The cardiac silhouette, mediastinum and pulmonary vasculature are unremarkable. The regional osseous structures are intact IMPRESSION: No acute radiographic abnormality at 2249 Reported and signed by: Deanna Armstrong M.D. CC: PAGE 1 Signed Report Name: PATITO LONDONO [facility] : 1955 Age/S: 67 / F [id number] [address] Unit #: [id number] Loc: [place] [address] Phys: Jaquan Dsouza MD Acct: [id number] Dis Date: Status: PRE ER PHONE #: [phone] Exam Date: 09/30/20222244 FAX #: Reason: Code Stroke EXAMS: CPT: [id number] XR CHEST 1 V 75274 Fluoro Time: DAP (Gy m2): Air Kerma (mGy): (Continued) Technologist: Angel Patel, RT(R) Trnscb Date/Time: 09/30/2022 (2248) [email or web address] Orig Print D/T: S: 09/30/2022 (1334) PAGE 2 Signed Report- CT HEAD/BRAIN W/O CONT 2022-09-30 22:39:00 [facility] : 1955 Sex: F Name: PATITO LONDONO [facility] : 1955 Age/S: 67 / F [id number] [facility] Unit #: [id number] Loc: [place] [address] Phys: Jaquan Dsouza MD Acct: [id number] Dis Date: Status: PRE ER PHONE #: [phone] Exam Date: 09/30/20222231 FAX #: Reason: aphasia EXAMS: CPT: [id number] CT HEAD/BRAIN W/O CONT 59986 LOCATION: H48 HISTORY: Female, 67 years of age with aphasia, confusion, right earpain EXAM: CT BRAIN WITHOUT IV CONTRAST COMPARISON: None TECHNIQUE: Helical axial images were obtained through the brain without IV contrast. Coronal and sagittal reformats were performed. One or more of the following dose [...] shift. No acute loss of the cortical brennan/white junctions is seen. There is diffuse parenchymal atrophy consistent with patient age.Mild periventricular hypodensities are consistent with chronic small vessel ischemic disease. No cruz varial fracture is seen. The sinuses and mastoids are clear. IMPRESSION: 1. No acute calvarial fracture, intracranial hemorrhage, infarct, or mass. 2. Age- related atrophy and chronic small vessel ischemic injuries. at 2239 Reported and signed by: Naima Lizama MD CC: Technologist:Angel Patel, RT(R); ... CTDI: DLP: Trnscb Date/Time: 09/30/2022 (2238) [email or web address] Orig Print D/T: S: 09/30/2022 (177) PAGE 1 Signed Report Notes Date/Time Note Provider Source 2025-04-03 11:44:44 Spoke to patient regarding CT result. CT shows nonobstructive renal stone, No focal enhancing renal lesions seen. Advised to take Flomax as ordered. Advised that she has been referred to Gynecology for further evaluation of endometrial thickening. Patient verbalized understanding. IMPRESSION 1. Subcentimeter, nonobstructing, renal stone in the superior pole the right kidney. No focal enhancing renal lesions are seen. No filling defects are seen in the collecting system, ureters, or the urinary bladder. 2. Sigmoid diverticulosis. Prior cholecystectomy. Endometrial thickening, further evaluation is recommended to rule out malignancy. [facility] Crescentrating 2025-03-31 08:30:00 Images from the original note were not included. Venipuncture collection performed by clean technique on the left anticubitus. Total of 1 attempts were made. Slight pressure and a bandage/dressing were applied to the site(s). The patient experienced no complications. The following specimens were processed according to instructions and sent to [facility] laboratories per lab order on 03/31/2025 : LT BLUE SST 1 RED LAV 1 PPT DK GREEN (LiHep) DK GREEN (SodH) BRENNAN DK BLUE (K2) DK BLUE (S) ACD Blood Culture NIPT/NTD Patient has been identified by and name and was provided with cup, antiseptic towelette, and clean catch instructions. 2 urine specimen(s) sent. Unpreserved 1 Urine Culture [address] Other urine [facility] 2022-10-02 10:55:00 [facility] ([facility]) Hospitalist Discharge Summary REPORT#:[id number] REPORT STATUS: Signed DATE:10/02/22 TIME:1055 PATIENT: PATITO LONDONO UNIT #: [id number] ROOM/BED: [place] [address] : [birth year] AGE: 67 SEX: F ATTEND: [...] Result Date Time Pulse Ox 98 10/02 0810 FiO2 21 10/02 08 O2 Delivery Room air 10/02 0810 B/P 140/87 10/02 737 B/P Mean 0.0 [...] no rebound Extremities: moves all, no edema Neuro/TYPESETTER APPRENTICE: alert, oriented X 3, CNII-XII intact, no [...] Report Impression - Status: SIGNED Entered: 10/01/2022 1652 IMPRESSION: 1. Technically successful fluoroscopically guided lumbar puncture. No immediate complications. 2. Opening pressure was 6. Closing pressure was less than 5. Impression By: [email or web address] - Patricio Taylor M.D. Discharge Instructions PCP PCP follow-up: PCP: No Primary or Family Physician Discharge to: Home/Self Care Additional Discharge Routines: PCP Follow-Up, Emr Implementation Specialist Follow-Up Diet: Cardiac Activity: As Tolerated Discharge [...] dc at 1128 at 1535 RPT #: [id number] END OF REPORT [facility] 2022-10-02 08:56:00 [facility] Neurology Progress Note REPORT#:[id number] REPORT STATUS: Signed DATE:10/02/22 TIME:0856 PATIENT: PATITO LONDONO UNIT #: [id number] ROOM/BED: [place] [address] : [birth year] AGE: 67 SEX: F ATTEND: [...] questions. Brit Rao MD, MPH at 0857 RPT #: [id number] END OF REPORT [facility] 2022-10-01 18:27:00 [id number] [facility] [address] [place] [address] PATIENT NAME: PATITO LONDONO ADMIT DATE: 10/01/22 ACCOUNT NO: [id number] ROOM NO: [facility] AGE: 67 REPORT TYPE: eECHOCARDIOGRAM REPORT SEX: F ADMITTING PHYSICIAN: Kayleigh Phipps MD ATTENDING PHYSICIAN: Kayleigh Phipps MD *[facility]* [id number] [place] [address] Transthoracic Echocardiogram Patient: Patito Londono Study Date: 10/01/2022 BP: 169 / 81 Location: [facility] URN: [id number] : 1955 Age: 67 Height: 64 in / 162.6 cm Gender: F Weight: 180 lb / 81.8 kg BMI/BSA: 31 kg/m 2 / 1.95 m 2 *Ordering Physician: Gabrielle Hinds *Interpreting Physician: * Jovon Peralta MD *Assistant Restaurant General Manager: * Aziza Freeman Indications: CVA. Expressive Aphasia. [...] cm 2 --------- Pulmonic valve Value Ref [place] peak v 1.13 m/sec --------- [place] peak grad 5 mm Hg --------- Tricuspid [...] 18:27 at 1827 PATIENT NAME: PATITO LONDONO [facility] 2022-10-01 11:35:00 [facility] Hospitalist Progress Note REPORT#:[id number] REPORT STATUS: Signed DATE:10/01/22 TIME:113 PATIENT: PATITO LONDONO UNIT #: [id number] ROOM/BED: [facility]-2 : [birth year] AGE: 67 SEX: F ATTEND: [...] Flow FiO2 Mean Ox Delivery Rate 10/01 824 98.6 76 18 141/68 92 96 Room [...] no rebound Extremities: moves all, no edema Neuro/TYPESETTER APPRENTICE: alert, oriented X 3, CNII-XII intact, no motor deficits, no sensory deficits, mild expressive aphasia Lymphatics: neck normal, no lymphadenopathy Results Findings/Data: Laboratory Tests 10/01 09/30 09/30 0518 2240 2229 Chemistry Sodium (134 - 147 [...] % (Auto) (20.5 - 51.1 %) 26.4 [place] % (Auto) (1.7 - 9.3 %) 9.8 H Eos % (Auto) (0.0 - 6.0 %) 1.4 Baso % (Auto) (0.0 - 2.0 %) 0.9 Neut # (Auto) (1.8 - 7.6 K/mm3) 6.3 Lymph # (Auto) (0.6 - 3.2 K/mm3) 2.7 [place] # (Auto) (0.3 - 1.1 K/mm3) 1.0 [...] - 7.0 pH UNITS) 6.0 Ur Specific Berino (1.005 - 1.030 SG) 1.015 Urine Protein [...] the findings and plan as documented by CREDIT RISK MANAGER; * my personal evaluation is CVA, PT/OT, Neuro, Antiplatelet at 1145 at 1337 RPT #: [id number] END OF REPORT [facility] 2022-10-01 10:00:00 [facility] Neurology Consultation Note REPORT#:[id number] REPORT STATUS: Signed DATE:10/01/22 TIME:1000 PATIENT: PATITO LONDONO UNIT #: [id number] ROOM/BED: [place] [address] : [birth year] AGE: 67 SEX: F ATTEND: [...] Rao MD, MPH at 1004 RPT #: [id number] END OF REPORT [facility] 2022-10-01 01:40:00 [facility] ([facility]) Hospitalist History Physical REPORT#:[id number] REPORT STATUS: Signed DATE:10/01/22 TIME:139 PATIENT: PATITO LONDONO UNIT #: [id number] ROOM/BED: [place] [address] : [birth year] AGE: 67 SEX: F ATTEND: Kayleigh Phipps MD ADM AUTHOR: Gabrielle Morrissey APRNNP * ALL edits or amendments must be [...] words also had abdominal pain. She visited [facility] in [place] where all workups including head CT showed [...] ONE 09/30 2221 DC 09/30 (ISOVUE-370) .ROUTE 2318 Electrolytic, Caloric, And Shelbi Sig/Fuentes Start time Last Medication Dose Route Stop Time Status Admin Sodium Chloride 100 ML .STK-MED ONE 09/30 2320 DC 09/30 (SODIUM CHLORIDE IV 09/30 0.9%) Allergies: Coded Allergies: morphine (UNKNOWN 09/30/22) [...] Flow FiO2 Mean Ox Delivery Rate 10/01 0057 36.7 75 18 140/72 94 100 Room [...] edema Musculoskeletal: normal inspection, no muscle spasm Neuro/TYPESETTER APPRENTICE: alert, oriented X 3, CNII-XII intact, normal speech, reflexes equal bilat, no motor deficits, no sensory deficits Lymphatics: neck normal, no lymphadenopathy Psychiatry: normal affect, normal judgment/insight Results Findings/Data: Laboratory Tests 09/309 Chemistry Sodium (134 - 147 mmol/L) 140 [...] (0.8 - 1.2 INR Unit) 0.95 PTT (Gila) (26 - 35 SECONDS) 38.5 H PT [...] % (Auto) (20.5 - 51.1 %) 26.4 [place] % (Auto) (1.7 - 9.3 %) 9.8 H Eos % (Auto) (0.0 - 6.0 %) 1.4 Baso % (Auto) (0.0 - 2.0 %) 0.9 Neut # (Auto) (1.8 - 7.6 K/mm3) 6.3 Lymph # (Auto) (0.6 - 3.2 K/mm3) 2.7 [place] # (Auto) (0.3 - 1.1 K/mm3) 1.0 [...] - 7.0 pH UNITS) 6.0 Ur Specific Berino (1.005 - 1.030 SG) 1.015 Urine Protein [...] Report Impression - Status: SIGNED Entered: 09/30/2022 2252 IMPRESSION: No acute radiographic abnormality Impression By: [...] the findings and plan as documented by CREDIT RISK MANAGER; * my personal evaluation is CVA, MRI pending at 0220 at 1337 RPT #: [id number] END OF REPORT [facility] 2022-09-30 22:41:00 [facility] ([facility]) EMERGENCY PROVIDER REPORT REPORT#:[id number] REPORT STATUS: Signed DATE:09/30/22 TIME:2240 PATIENT: PATITO LONDONO UNIT #: [id number] ROOM/BED: [place] [address] : [birth year] AGE: 67 SEX: F PCP [...] Total 4 NIH Stroke Score Timing Time 2220 Date 09/30/22 Review of Systems ROS Statements [...] (0.8 - 1.2 INR Unit) 0.95 PTT (Gila) (26 - 35 SECONDS) 38.5 H PT [...] % (Auto) (20.5 - 51.1 %) 26.4 [place] % (Auto) (1.7 - 9.3 %) 9.8 H Eos % (Auto) (0.0 - 6.0 %) 1.4 Baso % (Auto) (0.0 - 2.0 %) 0.9 Neut # (Auto) (1.8 - 7.6 K/mm3) 6.3 Lymph # (Auto) (0.6 - 3.2 K/mm3) 2.7 [place] # (Auto) (0.3 - 1.1 K/mm3) 1.0 Eos # (Auto) (0.0 - 0.4 K/mm3) 0.2 Baso # (Auto) (0.0 - 0.1 K/mm3) 0.1 Abs Immat Gran (auto) (0.00 - 0.03 x10 3/uL) 0.03 Add Manual Diff (CRITERIA DIFF/SCN) NO Immature Gran % (0.0 - 5.0 %) 0.3 Nucleated RBC % (0.0 - 1.0 /100WBC%) 0.0 Serology SARS-CoV-2 Ag (Rapid) (Negative) NEGATIVE 09/30 09/30 2230 2229 Chemistry POC Glucose (70 - 110 mg/dL) 128 H Urines Urine Color (YEL/STRAW discript) YELLOW Urine Appearance (CLEAR discript) CLEAR Urine pH (5.0 - 7.0 pH UNITS) 6.0 Ur Specific Berino (1.005 - 1.030 SG) 1.015 Urine Protein [...] taking over this patient's care. at 0541 RPT #: [id number] END OF REPORT [facility] 2019-07-02 13:10:00 [facility] ([facility]) EMERGENCY PROVIDER REPORT REPORT#:[id number] REPORT STATUS: Signed DATE:07/02/19 TIME: 1310 PATIENT: PATITO LONDONO UNIT #: [id number] ROOM/BED: AGE: 64 SEX: F PCP PHYS: [...] Documented: Result Date Time Pulse Ox 96 08/ 1230 B/P 184/90 / 1230 B/P Mean 121 / 1230 O2 Delivery Room air 07/02 1230 Temp 37.3 08/ 1230 Pulse 97 08/ 1230 Resp 18 / 1230 Last Documented: Result Date Time Pulse Ox 96 08/ 1230 B/P 184/90 08/ 1230 B/P Mean 121 / 1230 O2 Delivery Room air 07/02 1230 Temp 37.3 07/02 1230 Pulse 97 08 1230 Resp 18 07/02 1230 Review of [...] Date/Time Procedure - Status Source Growth 07/02 123 Group A Streptococcus DNA Detection - COMP THROAT Point of Care Testing Micro Interpretation Strep rapid - neg Pulse Oximetry Pulse Ox % 98 On: Room air Interpretation Interpreted by me, Pulse oximetry normal Re-Evaluation MDM Free Text MDM Notes Free Text MDM Notes WAP. IOR JUDSON STERLING. Patient Discharge Departure Vital Signs/Condition Vital Signs First Documented: Result Date Time Pulse Ox 96 07/02 1230 B/P 184/90 07/02 1230 B/P Mean 121 07/02 1230 O2 Delivery Room air 07/02 1230 Temp 37.3 07/02 1230 Pulse 97 08 1230 Resp 18 07/02 1230 Last Documented: [...] or a call to 911. at 1423 [facility] #:[phone] END OF REPORT [facility]
[2025-09-12 16:17] LABS: Absolute Lymphocytes (CBC) 2.3 K/uL (0.7-4.9); Hematocrit 41.2 % (36.0-45.0); Hemoglobin 13.9 g/dL (12.0-15.0); MCH 31.2 pg (27.0-35.0); MCHC 33.7 g/dL (32.0-36.0); MCV 92.7 fL (80-100); MPV 7.1 fL (7.6-11.3); Nucleated RBC Absolute Count 0.0 (0-0); Nucleated Red Blood Cells % 0.0 % (0-0); RBC Red Blood Cell Count 4.45 M/uL (3.86-4.86); White Blood Count 9.40 thou/uL (4.3-10.9)
[2025-09-12] MEDS ORDERED: NA CHLORIDE 0.9% 500 ML ONE (16:31)
--- NOTE | 2025-09-12 16:34 | RAD REPORT ---
Procedure: Chest Single View HISTORY: Palpitations COMPARISON: January 2025 FINDINGS: The lungs appear clear of acute infiltrate. No significant pleural effusion noted. The heart is normal size. IMPRESSION: No acute abnormality is displayed.
[2025-09-12 16:36] LABS: Anion Gap 8.6 mEq/L (5.0-15.0); BUN Blood Urea Nitrogen 15.0 mg/dL (7-18); Glucose Level 130.0 mg/dL (74-106); Magnesium 2.0 mg/dL (1.6-2.4); NT PRO-BNP 89.0 pg/mL (<125); Potassium 3.6 mEq/L (3.5-5.1); Troponin High Sensitivity 4.1 pg/mL (<58.9)
--- NOTE | 2025-09-12 16:56 | ER ---
Nurse's Notes [facility] Name: Patito Self Age: 70 yrs Sex: Female : 1955 Arrival Date: 09/12/2025 Time: 15:34 Bed 19 Private MD: Diagnosis: Palpitations Presentation: 09/12 15:44 Chief complaint: Patient states: PALPITATIONS STARTED AT AROUND 12 PM. STATES HAS db HEAVINESS AND PALITATIONS. Coronavirus screen: Client denies travel out of the [place] in the last 14 days. At this time, the client does not indicate any symptoms associated with coronavirus-19. Ebola Screen: Patient negative for fever greater than or equal to 101.5 degrees Fahrenheit, and additional compatible Ebola Virus Disease symptoms Patient denies exposure to infectious person. Patient denies travel to an Ebola-affected area in the 21 days before illness onset. No symptoms or risks identified at this time. Initial Sepsis Screen: Does the patient meet any 2 criteria? No. Patient's initial sepsis screen is negative. Does the patient have a suspected source of infection? No. Patient's initial sepsis screen is negative. Risk Assessment: Do you want to hurt yourself or someone else? Patient reports no desire to harm self or others. Onset of symptoms was September 12, 2025. 15:44 Method Of Arrival: Ambulatory db 15:44 Acuity: MARCIANO 2 db Triage Assessment: 15:45 General: Appears in no apparent distress. Behavior is cooperative, anxious. Pain: db Denies pain. Neuro: Level of Consciousness is awake, alert, obeys commands, Oriented to person, place, time, situation. Cardiovascular: Reports palpitations. Respiratory: Airway is patent Respiratory effort is even, unlabored, Respiratory pattern is regular, symmetrical. Historical: - Allergies: 15:45 Morphine; db - PMHx: 15:45 Cerebrovascular accident; Hypertensive disorder; Hypercholesterolemia; db - Immunization history:: Adult Immunizations unknown. - Infectious Disease History:: Denies. - Social history:: Smoking status: unknown. - Family history:: not pertinent. - Hospitalizations: : No recent hospitalization is reported. Screenin:41 [facility] ED Fall Risk Assessment (Adult) History of falling in the last 3 months, jb4 including since admission No falls in past 3 months (0 pts) Confusion or Disorientation No (0 pts) Intoxicated or Sedated No (0 pts) Impaired Gait No (0 pts) Mobility Assist Device Used No (0 pt) Altered Elimination No (0 pt) Score/Fall Risk Level 0 - 2 = Low Risk Oriented to surroundings, Maintained a safe environment. Abuse screen: Denies threats or abuse. Nutritional screening: No deficits noted. Tuberculosis screening: No symptoms or risk factors identified. Assessment: 16:00 General: Appears in no apparent distress. comfortable, Behavior is calm, cooperative, jb4 appropriate for age. Pain: Denies pain. Neuro: Level of Consciousness is awake, alert, obeys commands, Oriented to person, place, time, situation. Cardiovascular: Reports palpitations, Chest heaviness Patient's skin is warm and dry. Respiratory: Airway is patent Respiratory effort is even, unlabored, Respiratory pattern is regular, symmetrical. Derm: Skin is intact, Skin is pink, warm \T\ dry. Musculoskeletal: Circulation, motion, and sensation intact. Range of motion: intact in all extremities. 17:40 Reassessment: Patient appears in no apparent distress at this time. Patient and/or jb4 family updated on plan of care and expected duration. Pain level reassessed. Patient is alert, oriented x 3, equal unlabored respirations, skin warm/dry/pink. Patient states feeling better. Vital Signs: 15:44 BP 171 / 90; Pulse 108; Resp 20; Temp 98.5; Pulse Ox 98% ; Weight 94.35 kg; Height 5 db ft. 1 in. ; 16:54 Pulse 85; rn 17:41 BP 125 / 64; Pulse 90; Resp 16; Pulse Ox 96% on R/A; jb4 15:44 Body Mass Index 39.30 (94.35 kg, 154.94 cm) db ED Course: 15:39 Patient arrived in ED. mr 15:40 Malvin Coleman MD is Attending Physician. rn 15:45 Triage completed. db 15:46 Arm band placed on Patient placed in an exam room. db 16:14 EKG done, by plasma center technician. reviewed by Malvin Coleman MD. ts3 16:15 Initial lab(s) drawn, by director geophysical laboratory, sent to lab. Inserted saline lock: 20 gauge in right ts3 antecubital area, using aseptic technique. Blood collected. Flushed with 10 mL NS. 16:32 XRAY Chest (1 view) In Process Unspecified. EDMS 16:34 Chino Wagner, RN is Primary Nurse. jb4 17:41 Patient has correct armband on for positive identification. Bed in low position. Call jb4 light in reach. Side rails up X 1. Provided Education on: plan of care. 17:41 No provider procedures requiring assistance completed. IV discontinued, intact, jb4 bleeding controlled, No redness/swelling at site. Pressure dressing applied. Administered Medications: 16:34 Drug: NS 0.9% IV 500 ml 500 ml IV at 1 bolus once; to be given as a bolus over 30 jb4 minutes Volume: 500 ml; Route: IV; Rate: 1 bolus; Site: right antecubital; Medication: 17:41 VIS not applicable for this client. jb4 Outcome: 16:56 Discharge ordered by . rn 17:41 Discharged to home ambulatory, jb4 17:41 Condition: stable 17:41 Discharge instructions given to patient, Instructed on discharge instructions, follow up and referral plans. Demonstrated understanding of instructions, follow-up care, 17:43 Patient left the ED. jb4 Signatures: Dispatcher [employer] EDMO Kathy Higgins, Reg Reg mr Malvin Coleman MD MD rn Bryson, James, RN RN jb4 Lesa Sandoval RN RN db Joan Pitt ts3 Corrections: (The following items were deleted from the chart) 15:47 15:44 BP 171 / 90; Pulse 108bpm; Resp 20bpm; Pulse Ox 98%; 94.35 kg; Height 5 ft. 1 db in.; BMI: 39.3; db
--- NOTE | 2025-09-12 16:57 | EDPHYS ---
Physician Documentation [facility] Name: Patito Self Age: 70 yrs Sex: Female : 1955 Arrival Date: 09/12/2025 Time: 15:34 Bed 19 Private MD: ED Physician Malvin Coleman HPI: 09/12 15:51 This 70 yrs old Female presents to ER via Ambulatory with complaints of rn Palpitations. 15:51 Patient reports heart palpitations, feels heart racing and mild chest heaviness. No rn radiation. No fever or recent illness. Denies shortness of breath. Patient states son has cancer and she has been a little stressed out recently but has never had this happen before. No new medication. Compliant with antihypertensive medication and cholesterol medication. Also takes aspirin from previous stroke. No abdominal pain or vomiting. No blood in stool.. Historical: - Allergies: 15:45 Morphine; db - PMHx: 15:45 Cerebrovascular accident; Hypertensive disorder; Hypercholesterolemia; db - Immunization history:: Adult Immunizations unknown. - Infectious Disease History:: Denies. - Social history:: Smoking status: unknown. - Family history:: not pertinent. - Hospitalizations: : No recent hospitalization is reported. ROS: 15:51 Constitutional: Negative for fever, chills, and weight loss, Cardiovascular: Positive rn for chest heaviness and palpitations with heart racing Respiratory: Negative for shortness of breath, cough, wheezing, and pleuritic chest pain, Abdomen/GI: Negative for abdominal pain, nausea, vomiting, diarrhea, and constipation, MS/Extremity: Negative for injury and deformity, Skin: Negative for injury, rash, and discoloration, Neuro: Negative for headache, weakness, numbness, tingling, and seizure, Exam: 15:51 Constitutional: This is a well developed, well nourished patient who is awake, alert, rn and in no acute distress. Cardiovascular: Tachycardic, irregular. Respiratory: Mild tachypnea but speaking full sentences Abdomen/GI: Soft, nontender Neuro: Awake and alert, GCS 15 16:33 ECG was reviewed by the Attending Physician. rn Vital Signs: 15:44 BP 171 / 90; Pulse 108; Resp 20; Temp 98.5; Pulse Ox 98% ; Weight 94.35 kg; Height 5 db ft. 1 in. ; 16:54 Pulse 85; rn 17:41 BP 125 / 64; Pulse 90; Resp 16; Pulse Ox 96% on R/A; jb4 15:44 Body Mass Index 39.30 (94.35 kg, 154.94 cm) db MDM: 15:40 Medical Screening Exam initiated rn 16:54 Differential diagnosis: arrythmia, dehydration, stress disorder. Data reviewed: vital rn signs, nurses notes, lab test result(s), EKG, radiologic studies, plain films, and as a result, I will discharge patient. Independent interpretation of the following test(s) in the Emergency Department EKG: See my EKG interpretation above X-Ray: My interpretation is Chest x-ray images negative for pneumonia or pneumothorax per my interpretation. supervisor packing: rate is 85 beats/min, Rhythm is normal sinus rhythm, regular, with no ectopy, Interpretation: normal rate, normal rhythm. Counseling: I had a detailed discussion with the patient and/or guardian regarding the historical points, exam findings, and any diagnostic results supporting the discharge/admit diagnosis, lab results, radiology results, the need for outpatient follow up, to return to the emergency department if symptoms worsen or persist or if there are any questions or concerns that arise at home. Response to treatment: the patient's symptoms have markedly improved after treatment, the patient's condition has returned to base line, the patient is now symptom free, and as a result, I will discharge patient. Special discussion: I discussed with the patient/guardian in detail that at this point there is no indication for admission to the hospital. It is understood, however, that if the symptoms persist or worsen the patient needs to return immediately for re-evaluation. ED course: No arrhythmia noted, was sinus tachycardia, with fluids down to 85. Troponin negative, D-dimer negative, no anemia, chest x-ray images negative. No ischemia on ECG. I have personally reviewed all of the results, including but not limited to blood tests and imaging deemed necessary to safely discharge this patient at this time. All results given to and printed out for patient. I personally went over all the results with the patient and answered all questions. Patient will follow-up with PCP and or specialist as discussed. Return precautions given and understood.. 09/12 15:48 Order name: Basic Metabolic Panel; Complete Time: 16:41 rn 09/12 15:48 Order name: CBC with Diff; Complete Time: 16:36 rn 09/12 15:48 Order name: Magnesium; Complete Time: 16:41 rn 09/12 15:48 Order name: NT PRO-BNP; Complete Time: 16:41 rn 09/12 15:48 Order name: Troponin HS; Complete Time: 16:41 rn 09/12 15:48 Order name: D-Dimer; Complete Time: 16:36 rn 09/12 15:48 Order name: XRAY Chest (1 view); Complete Time: 16:36 rn 09/12 15:48 Order name: Cardiac monitoring; Complete Time: 16:12 rn 09/12 15:48 Order name: EKG - Nurse/Tech; Complete Time: 16:12 rn 09/12 15:48 Order name: IV Saline Lock; Complete Time: 16:14 rn 09/12 15:48 Order name: Labs collected and sent; Complete Time: 16:14 rn 09/12 15:48 Order name: O2 Per Protocol; Complete Time: 16:12 rn 09/12 15:48 Order name: O2 Sat Monitoring; Complete Time: 16:12 rn EC:33 Rate is 101 beats/min. Rhythm is regular. QRS [place] is Normal. [place] interval is normal. rn QRS interval is normal. QT interval is normal. No Q waves. T waves are Normal. No ST changes noted. Clinical impression: Sinus tachycardia. Interpreted by me. Reviewed by me. Administered Medications: 16:34 Drug: NS 0.9% IV 500 ml 500 ml IV at 1 bolus once; to be given as a bolus over 30 jb4 minutes Volume: 500 ml; Route: IV; Rate: 1 bolus; Site: right antecubital; Disposition Summary: 09/12/25 16:56 Discharge Ordered Notes: Location: Home rn Problem: new rn Symptoms: have improved rn Condition: Stable rn Diagnosis - Palpitations rn Followup: rn - With: Private Physician - When: As needed - Reason: Recheck today's complaints, Re-evaluation by your physician Discharge Instructions: - Discharge Summary Sheet rn - Palpitations rn Forms: - Medication Reconciliation Form rn - 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 EDMS EDMS 15:49 15:49 CBC+H.LAB.BRZ ordered. EDMS EDMS 15:49 15:49 MAGNESIUM+C.LAB.BRZ ordered. EDMS EDMS 15:49 15:49 PROBNP+C.LAB.BRZ ordered. EDMS EDMS 15:49 15:49 Troponin High Sensitivity+C.LAB.BRZ ordered. EDMS EDMS 15:49 15:49 D-DIMER+COAG.LAB.BRZ ordered. EDMS EDMS
[2025-09-13 01:28] VITALS: TEMP 98.5
[2025-09-13 01:30] VITALS: BP 125/64; O2SAT 96
== END 2025-09-12 17:43 | disposition home or self-care (01) ==
LOC: ER 15:34
DX: R00.2 Palpitations (principal); I10 Essential (primary) hypertension
CPT/HCPCS: 93005; 85025; 80048; 36415; 83735; 85379; 84484; 83880; 71045; 99284; J7040